=== PATIENT | male | born 1940 | race Caucasian/White ===

== ENCOUNTER 2017-12-09 23:05 | Emergency (ER) | payer OTHER, BC ==
--- NOTE | 2017-12-10 00:04 | EDPHYS ---
Physician Documentation [facility] Name: Garth Sellers Age: 77 yrs Sex: Male : 1940 Arrival Date: 12/09/2017 Time: 23:12 Bed 20 Private MD: ED Physician Reji Oro HPI: 12/09 23:58 This 77 yrs old Male presents to ER via EMS with complaints of Problem With rn Urinary Catheter. 23:58 The patient presents with a Hamilton catheter problem, is leaking urine. Onset: The rn symptoms/episode began/occurred today. Modifying factors: The symptoms are alleviated by nothing, the symptoms are aggravated by nothing. Severity of symptoms: At their worst the symptoms were mild, in the emergency department the symptoms are unchanged. The patient has not experienced similar symptoms in the past. Reports hamilton catheter placed 2 days ago, reports recently diagnosed with kidney cancer, hamilton placed for hematuria, today began leaking around catheter, no other issues. . Historical: - Allergies: 23:29 No Known Allergies; ed1 - Home Meds: 23:29 Zestril oral oral [Active]; Toprol XL 200 mg Oral Tb24 [Active]; Glucophage 500 mg Oral ed1 tab [Active]; Zoloft 100 mg Oral tab [Active]; Lasix 40 mg Oral tab [Active]; Crestor 20 mg oral tab [Active]; Coumadin Oral [Active]; tamsulosin 0.4 mg oral cp24 [Active]; finasteride 5 mg oral tab [Active]; nortriptyline 25 mg Oral cap [Active]; Seroquel 100 mg Oral tab [Active]; Novolin N Sub-Q [Active]; Novolin R Sub-Q [Active]; - PMHx: 23:29 Cancer; CHF; CVA; Diabetes - NIDDM; High Cholesterol; Hypertension; CAD; Prostate ed1 enlargement; - Immunization history:: Adult Immunizations up to date. - Social history:: Smoking status: Patient/guardian denies using tobacco, the patient reports quitting approximately 1 years ago. - Family history:: not pertinent. - Hospitalizations: : No recent hospitalization is reported. ROS: 23:58 Constitutional: Negative for fever, chills, and weight loss, Eyes: Negative for injury, rn pain, redness, and discharge, Neck: Negative for injury, pain, and swelling, Cardiovascular: Negative for chest pain, palpitations, and edema, Respiratory: Negative for shortness of breath, cough, wheezing, and pleuritic chest pain, Abdomen/GI: Negative for abdominal pain, nausea, vomiting, diarrhea, and constipation, Back: Negative for injury and pain, : + leaking catheter MS/Extremity: Negative for injury and deformity, Skin: Negative for injury, rash, and discoloration, Neuro: Negative for headache, weakness, numbness, tingling, and seizure. Exam: 23:58 Constitutional: This is a well developed, well nourished patient who is awake, alert, rn and in no acute distress. Abdomen/GI: Soft, non-tender, with normal bowel sounds. No distension or tympany. No guarding or rebound. No evidence of tenderness throughout. Male : Normal genitalia, + hamilton catheter in place, mild leakage at meatus around hamilton Vital Signs: 23:14 BP 147 / 74; Pulse 89; Resp 18; Temp 98.7; Pulse Ox 97% ; Weight 136.08 kg; Height 5 ea ft. 11 in. (180.34 cm); 12/10 00:22 BP 135 / 53; Pulse 79; Resp 18; Temp 98.7; Pulse Ox 96% on R/A; Pain 0/10; ak1 12/09 23:14 Body Mass Index 41.84 (136.08 kg, 180.34 cm) ea MDM: 12/09 23:13 Patient medically screened. rn 23:58 Differential diagnosis: Hamilton catheter problem. Data reviewed: vital signs, nurses rn notes, and as a result, I will discharge patient. Counseling: I had a detailed discussion with the patient and/or guardian regarding: the historical points, exam findings, and any diagnostic results supporting the discharge/admit diagnosis, the need for outpatient follow up, to return to the emergency department if symptoms worsen or persist or if there are any questions or concerns that arise at home. Special discussion: I discussed with the patient/guardian in detail that at this point there is no indication for admission to the hospital. It is understood, however, that if the symptoms persist or worsen the patient needs to return immediately for re-evaluation. ED course: Hamilton irrigated/flushed, now draining well, no hematuria, pink-tinged, has urology appt tomorrow.. ED course: Already on bactrim for urine coverage.. 12/09 23:19 Order name: Hamilton-Hematuria; Complete Time: 23:51 rn Administered Medications: No medications were administered Disposition: 12/10/17 00:03 Discharged to Home. Impression: Hamilton catheter obstruction. - Condition is Stable. - Discharge Instructions: Hamilton Catheter Care, Adult. - Medication Reconciliation Form, Thank You Letter, Antibiotic Education, Prescription Opioid Use form. - Follow up: Private Physician; When: As needed; Reason: Recheck today's complaints, Re-evaluation by your physician. - Problem is new. - Symptoms have improved. Signatures: Reji Oro MD MD rn Riggs, Erika, LVN CASHIER CREDIT ed1 Corrections: (The following items were deleted from the chart) 12/10 00:31 00:03 12/10/2017 00:03 Discharged to Home. Impression: [place] catheter obstruction. ed1 Condition is Stable. Forms are Medication Reconciliation Form, Thank You Letter, Antibiotic Education, Prescription Opioid Use. Follow up: Private Physician; When: As needed; Reason: Recheck today's complaints, Re-evaluation by your physician. Problem is new. Symptoms have improved. rn
--- NOTE | 2017-12-10 00:04 | ER ---
Nurse's Notes [facility] Name: Garth Sellers Age: 77 yrs Sex: Male : 1940 Arrival Date: 12/09/2017 Time: 23:12 Bed 20 Private MD: Diagnosis: Hamilton catheter obstruction Presentation: 12/09 23:21 Presenting complaint: EMS states: His catheter is leaking. The bag was replaced but it ed1 continues to leak. Transition of care: patient was not received from another setting of care. Onset of symptoms was December 09, 2017. Initial Sepsis Screen: Does the patient meet any 2 criteria? No. Patient's initial sepsis screen is negative. Does the patient have a suspected source of infection? No. Patient's initial sepsis screen is negative. Care prior to arrival: None. 23:21 Method Of Arrival: EMS: [facility] ed1 23:21 Acuity: KEVEN 4 aa1 Triage Assessment: 23:29 General: Appears in no apparent distress. Behavior is calm, cooperative. Pain: Denies ed1 pain. Historical: - Allergies: 23:29 No Known Allergies; ed1 - Home Meds: 23:29 Zestril oral oral [Active]; Toprol XL 200 mg Oral Tb24 [Active]; Glucophage 500 mg Oral ed1 tab [Active]; Zoloft 100 mg Oral tab [Active]; Lasix 40 mg Oral tab [Active]; Crestor 20 mg oral tab [Active]; Coumadin Oral [Active]; tamsulosin 0.4 mg oral cp24 [Active]; finasteride 5 mg oral tab [Active]; nortriptyline 25 mg Oral cap [Active]; Seroquel 100 mg Oral tab [Active]; Novolin N Sub-Q [Active]; Novolin R Sub-Q [Active]; - PMHx: 23:29 Cancer; CHF; CVA; Diabetes - NIDDM; High Cholesterol; Hypertension; CAD; Prostate ed1 enlargement; - Immunization history:: Adult Immunizations up to date. - Social history:: Smoking status: Patient/guardian denies using tobacco, the patient reports quitting approximately 1 years ago. - Family history:: not pertinent. - Hospitalizations: : No recent hospitalization is reported. Screenin/10 00:22 Abuse screen: Denies threats or abuse. Denies injuries from another. Nutritional ak1 screening: No deficits noted. Tuberculosis screening: No symptoms or risk factors identified. Fall Risk Gait- Weak (10 pts.). Assessment: 00:21 Reassessment: Patient appears in no apparent distress at this time. No changes from ak1 previously documented assessment. Patient is alert, oriented x 3, equal unlabored respirations, skin warm/dry/pink. hamilton catheter is draining. Vital Signs: 12/09 23:14 BP 147 / 74; Pulse 89; Resp 18; Temp 98.7; Pulse Ox 97% ; Weight 136.08 kg; Height 5 ea ft. 11 in. (180.34 cm); 12/10 00:22 BP 135 / 53; Pulse 79; Resp 18; Temp 98.7; Pulse Ox 96% on R/A; Pain 0/10; ak1 12/09 23:14 Body Mass Index 41.84 (136.08 kg, 180.34 cm) ea ED Course: 12/09 23:12 Patient arrived in ED. em1 23:13 Reji Oro MD is Attending Physician. rn 23:20 Stefani Baker LVN is Primary Nurse. ed1 23:29 Arm band placed on right wrist. ed1 23:41 Triage completed. aa1 23:43 Bladder irrigated via Hamilton with 50 ml normal saline returned pink tinged urine Patient ed1 tolerated well. 05 00:22 Patient has correct armband on for positive identification. Bed in low position. Call ak1 light in reach. Side rails up X 1. 00:23 No provider procedures requiring assistance completed. Patient did not have IV access ak1 during this emergency room visit. 00:40 Primary Nurse role handed off by Stefani Baker LVN ed1 Administered Medications: No medications were administered Outcome: 00:03 Discharge ordered by . rn 00:23 Discharged to home via wheelchair, with family. ak1 00:23 Condition: stable 00:23 Discharge instructions given to patient, family, Instructed on discharge instructions, follow up and referral plans. Demonstrated understanding of instructions, follow-up care. 00:31 Patient left the ED. ed1 Signatures: Caprice Lares RN RN aa1 Reji Oro MD MD rn Martinez, Eric em1 Stefani Baker LVN LVN ed1 Krenek, Thelma, RN RN ak1 Xie, Felisa, RN RN ea
[2017-12-10 00:37] VITALS: TEMP 98.7
[2017-12-10 00:38] VITALS: BP 135/53; O2SAT 96
== END 2017-12-10 00:31 | disposition home or self-care (01) ==
LOC: ER 23:05
DX: T83.091A Other mechanical complication of indwelling urethral catheter, initial encounter (principal); E11.9 Type 2 diabetes mellitus without complications; E78.5 Hyperlipidemia, unspecified; I10 Essential (primary) hypertension; I50.9 Heart failure, unspecified; Z46.6 Encounter for fitting and adjustment of urinary device
CPT/HCPCS: 51700; 99284

== ENCOUNTER 2018-03-24 11:19 | Observation (INO) | payer OTHER, BC ==
[2018-03-24] MEDS ORDERED: ALBUTEROL 2.5 MG/3 ML NEB SOL IH PRN (12:37)
[2018-03-24 12:51] VITALS: BMI 40.9
[2018-03-24] MEDS ORDERED: ONDANSETRON 4 MG/2 ML VIAL IV PRN (13:00)
[2018-03-24] MEDS ORDERED: NACHLORIDE 0.45% 1,000 ML IV SCH (13:00)
[2018-03-24] MEDS ORDERED: POLYETHYL GLY 3350 17 GM/DOSE PO PRN (13:00)
[2018-03-24] MEDS ORDERED: NA CHLORIDE 0.9% 250 ML IV SCH (13:00)
[2018-03-24] MEDS ORDERED: ONDANSETRON 4 MG (ODT) TAB PO PRN (13:00)
[2018-03-24] MEDS ORDERED: DIPHENHYDRAMINE 25 MG TAB/CAP PO PRN (13:00)
[2018-03-24] MEDS ORDERED: LOPERAMIDE HCL 2 MG CAPSULE PO PRN (13:00)
[2018-03-24 13:08] LABS: Absolute Lymphocytes (CBC) 1.1 K/uL (0.7-4.9); Absolute Monocytes 0.6 K/uL (0.1-1.3); Absolute Neutrophil 7.5 K/uL (1.8-8.0); Basophils % 0.4 % (0-1.3); Eosinophils % 0.9 % (0-4.4); Hematocrit 25.6 % (39.6-49.0); Lymphocytes % 11.5 % (15.3-44.8); MCH 23.2 pg (27.0-35.0); MCV 74.9 fL (80-100); MPV 10.8 fL (7.6-11.3); Monocytes % 6.2 % (3.3-12.3); RBC Red Blood Cell Count 3.42 M/uL (4.33-5.43)
--- NOTE | 2018-03-24 13:31 | RAD REPORT ---
EXAM DESCRIPTION: Karina Single View03/24/2018 1:22 pm CLINICAL HISTORY: Anemia/pulmonary nodule COMPARISON: January 2018 CT FINDINGS: A small calcified left lung granuloma is present. An additional sub centimeter left lung n odule seen on the CT chest is not clearly visualized but could be missed on chest x-ray secondary to the small size. The remainder of the lungs appear clear of acute infiltrate. The heart is borderline enlarged
[2018-03-24] MEDS: IPRATROPIUM BROM 0.5MG/2.5ML IH SCH ×2 (14:03→19:57)
[2018-03-24] MEDS: LEVALBUTEROL 1.25 MG/3 ML NEB IH SCH ×2 (14:03→19:57)
[2018-03-24] MEDS ORDERED: GLUCAGON 1 MG/VIAL IM PRN (15:42)
[2018-03-24] MEDS ORDERED: D50W 25 GM/50 ML SYRINGE IV PRN (15:42)
[2018-03-24 15:45] LABS: Urine Appearance CLEAR; Urine Bilirubin NEGATIVE (NEG); Urine Blood 3+ (NEG); Urine Color YELLOW; Urine Glucose NEGATIVE (NEG); Urine Protein 1+ (NEG); Urine Specific Gravity 1.015 (1.005-1.030)
[2018-03-24 15:50] LABS: Urine Microscopic Reflex ORDER UMIC
[2018-03-24 16:15] LABS: Urine Bacteria <20 /HPF (NONE SEEN); Urine RBC 20-50 /HPF (NONE SEEN)
[2018-03-24 16:16] LABS: Urine Culture Reflex Order NOT NEEDED
[2018-03-24] MEDS: INSULIN -REGULAR HUMAN 50 UNIT/0.5 ML ML SQ SCH ×2 (17:22→20:43)
[2018-03-24] MEDS: METFORMIN HCL 500 MG TAB PO SCH (19:02)
[2018-03-24] MEDS ORDERED: QUETIAPINE 25 MG TAB PO SCH (21:00)
[2018-03-24] MEDS ORDERED: QUETIAPINE FUMARATE PO SCH (21:00)
[2018-03-24] MEDS ORDERED: FINASTERIDE 5 MG TAB PO SCH (21:00)
[2018-03-24] MEDS: ACETAMINOPHEN 325 MG TABLET PO PRN (23:13)
[2018-03-25] MEDS: IPRATROPIUM BROM 0.5MG/2.5ML IH SCH ×3 (01:59→13:22)
[2018-03-25] MEDS: LEVALBUTEROL 1.25 MG/3 ML NEB IH SCH ×3 (01:59→13:22)
[2018-03-25 04:16] LABS: Absolute Lymphocytes (CBC) 1.3 K/uL (0.7-4.9); Absolute Monocytes 0.6 K/uL (0.1-1.3); Absolute Neutrophil 5.5 K/uL (1.8-8.0); Basophils % 0.4 % (0-1.3); Eosinophils % 1.3 % (0-4.4); Hematocrit 27.8 % (39.6-49.0); Lymphocytes % 17.7 % (15.3-44.8); MCH 24.4 pg (27.0-35.0); MCV 76.7 fL (80-100); MPV 10.8 fL (7.6-11.3); Monocytes % 8.4 % (3.3-12.3); RBC Red Blood Cell Count 3.62 M/uL (4.33-5.43)
[2018-03-25 04:19] LABS: Protime INR 2.32
[2018-03-25 04:26] LABS: Magnesium 2.1 mg/dL (1.8-2.4); Potassium 3.5 mmol/L (3.5-5.1)
[2018-03-25 04:32] VITALS: TEMP 97.3
[2018-03-25 08:28] VITALS: BP 112/58
[2018-03-25 08:30] VITALS: O2SAT 95
[2018-03-25] MEDS: INSULIN -REGULAR HUMAN 50 UNIT/0.5 ML ML SQ SCH ×3 (08:49→17:15)
[2018-03-25] MEDS: INSULIN 70/30 100 UNITS/ML SQ SCH ×2 (08:49→17:15)
[2018-03-25] MEDS: METFORMIN HCL 500 MG TAB PO SCH ×2 (08:52→17:17)
[2018-03-25] MEDS: ACETAMINOPHEN 325 MG TABLET PO PRN (08:56)
[2018-03-25] MEDS ORDERED: LISINOPRIL 20 MG TAB PO SCH (09:00)
[2018-03-25] MEDS ORDERED: HOME MED 1 EA UNK (Lisinopril [Zestril] 40 MG) PO SCH (09:00)
[2018-03-25] MEDS ORDERED: FUROSEMIDE 40 MG TABLET PO SCH (09:00)
[2018-03-25] MEDS ORDERED: SERTRALINE HCL 100 MG TAB PO SCH (09:00)
[2018-03-25] MEDS ORDERED: NA CHLORIDE 0.9% 250 ML IV SCH (09:00)
--- NOTE | 2018-03-25 09:32 | EKG ---
Test Date: 2018-03-24 Test Time: 14:12:48 Sand Operator: DEBRA MEASUREMENT RESULTS: Intervals: Rate: 98 [place]: 148 QRSD: 92 QT: 378 QTc: 482 Sherman: P: 63 [place]: 148 QRS: 56 T: 188 INTERPRETIVE STATEMENTS: Normal sinus rhythm NST Prolonged QT Abnormal ECG Compared to ECG 01/05/2007 05:32:01 ST (T wave) deviation now present Prolonged QT interval now present Myocardial infarct finding no longer present Electronically Signed On 03-25-18 09:32:15 CDT by Vikas Moore
--- NOTE | 2018-03-25 12:45 | P.DS ---
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 DR DOBBS WANTS CHEMO FOR HIM. HE AT 78 WITH POOR CONDITION MAY NOT DO WELL. WITH HIS HEMATURIA HE HAS ANEMIA AND SO I HAD TO PUT HIM IN HOSPITAL FOR 3 UNITS OF PACKED RBCS. HE WILL GO HOME AFTER [address] RD UNIT. Vital Signs/Physical Exam: Temp Pulse Resp BP Pulse Ox 97.3 F 95 H 17 112/58 L 100 03/25/18 08:00 03/25/18 08:52 03/25/18 08:00 03/25/18 08:52 03/25/18 08:00 Laboratory Data at Discharge: WBC 7.6 K/uL (4.3-10.9) D 03/25/18 03:43 Hgb 8.8 g/dL (13.6-17.9) L 03/25/18 03:43 Hct 27.8 % (39.6-49.0) L 03/25/18 03:43 Plt Count 149 K/uL (152-406) L D 03/25/18 03:43 PT 27.6 SECONDS (9.5-12.5) H 03/25/18 03:43 INR 2.32 03/25/18 03:43 Sodium 138 mmol/L (136-145) 03/25/18 03:43 Potassium 3.5 mmol/L (3.5-5.1) 03/25/18 03:43 BUN 21 mg/dL (7-18) H 03/25/18 03:43 Creatinine 1.20 mg/dL (0.55-1.3) 03/25/18 03:43 Glucose 227 mg/dL (74-106) H 03/25/18 03:43 Magnesium 2.1 mg/dL (1.8-2.4) 03/25/18 03:43 Home Medications: Furosemide [Lasix*] 40 mg PO DAILY 11/10/14 Lisinopril [Zestril] 40 mg PO DAILY 11/10/14 Quetiapine Fumarate [Seroquel] 1 tab PO BEDTIME 11/10/14 Rosuvastatin [Crestor*] 10 mg PO DAILY AT SUPPER 11/10/14 Sertraline [Zoloft*] 1 tab PO DAILY 11/10/14 Warfarin Sodium [Coumadin*] 6 mg PO DAILY 5 PM 11/10/14 Finasteride 5 mg PO BEDTIME 03/24/18 Insulin 70/30 NPH/Reg Human [Novolin 70/30*] 40 units SQ BIDWM 03/24/18 Metformin HCl [Glucophage] 500 mg PO BIDWM 03/24/18 Tamsulosin [Flomax*] 0.4 mg PO DAILY AFTER SUPPER 03/24/18 Patient Discharge Instructions: STOP WARFARIN IF BLEEDING CONTINUES FOR NOW. Diet: Regular Followup: Yeyo Cardoso MD [Primary Care Provider] - (call to schedule appointment)
[2018-03-25 16:52] LABS: Absolute Lymphocytes (CBC) 0.9 K/uL (0.7-4.9); Absolute Monocytes 0.6 K/uL (0.1-1.3); Absolute Neutrophil 6.3 K/uL (1.8-8.0); Basophils % 0.6 % (0-1.3); Eosinophils % 0.9 % (0-4.4); Hematocrit 31.3 % (39.6-49.0); Lymphocytes % 11.8 % (15.3-44.8); MCH 24.8 pg (27.0-35.0); MCV 78.5 fL (80-100); Monocytes % 8.1 % (3.3-12.3); RBC Red Blood Cell Count 3.99 M/uL (4.33-5.43)
[2018-03-25] MEDS ORDERED: ROSUVASTATIN 10 MG TAB PO SCH ×2 (17:00→18:00)
[2018-03-25] MEDS ORDERED: TAMSULOSIN 0.4 MG SR CAP PO SCH (18:00)
== END 2018-03-25 18:00 | disposition home or self-care (01) ==
LOC: 4TH 11:57
PROVIDERS: ADMIT Internal Medicine; ATTEND Internal Medicine
PROC: 30233N1 Transfusion of Nonautologous Red Blood Cells into Peripheral Vein, Percutaneous Approach (ICD-10-PCS; principal; 2018-03-24)
DX: D64.9 Anemia, unspecified (principal); R31.9 Hematuria, unspecified; C64.9 Malignant neoplasm of unspecified kidney, except renal pelvis
CPT/HCPCS: 36415 ×2; 36430; 71045; 80048 ×2; 82962 ×6; 83735; 85025 ×3; 85610; 86850; 86900; 86901; 93005; 94640; P9016 ×3; 81003; 81015

== ENCOUNTER 2018-04-10 08:39 | Observation (INO) | payer OTHER, BC ==
[2018-04-10 09:11] LABS: Absolute Monocytes 0.1 K/uL (0.1-1.3); Absolute Neutrophil 13.8 K/uL (1.8-8.0); Basophils % 0.2 % (0-1.3); Hematocrit 41.9 % (39.6-49.0); Lymphocytes % 6.6 % (15.3-44.8); MCH 25.7 pg (27.0-35.0); MCV 80.4 fL (80-100); MPV 10.9 fL (7.6-11.3); Monocytes % 0.3 % (3.3-12.3); RBC Red Blood Cell Count 5.21 M/uL (4.33-5.43)
[2018-04-10 09:21] LABS: Protime INR 5.05
[2018-04-10 09:28] LABS: Albumin 3.3 g/dL (3.4-5.0); Bilirubin Direct 0.2 mg/dL (0-0.2); Bilirubin Total 0.5 mg/dL (0.2-1.0); Potassium 4.7 mmol/L (3.5-5.1); Protein, Total 7.5 g/dL (6.4-8.2); Troponin (Emerg Dept Use Only) 0.02 ng/mL (0.0-0.045)
[2018-04-10 09:32] LABS: Anisocytosis 3+; Blood Morphology Comment NOTED (NOT SEEN); Hypochromasia 1+; Macrocytosis 2+; Platelet Estimate ADEQ; Urine White Blood Cell Casts OK
[2018-04-10] MEDS ORDERED: ACETAMINOPHEN 500 MG TAB PO PRN (10:46)
[2018-04-10] MEDS ORDERED: ONDANSETRON 4 MG/2 ML VIAL IV PRN (10:46)
[2018-04-10] MEDS ORDERED: ALBUTEROL 2.5 MG/3 ML NEB SOL NEB PRN (10:46)
[2018-04-10] MEDS ORDERED: IPRATROPIUM BROM 0.5MG/2.5ML NEB PRN (10:46)
--- NOTE | 2018-04-10 10:46 | ER ---
Nurse's Notes [facility] Name: Garth Sellers Age: 78 yrs Sex: Male : 1940 Arrival Date: 04/10/2018 Time: 08:42 Bed 7 Private MD: Diagnosis: Unspecified combined systolic (congestive) and diastolic (congestive) heart failure;Acute pulmonary edema;Dyspnea, unspecified Presentation: 04/10 08:42 Presenting complaint: EMS states: Pt c/o SOB increasing since Thu, 93% on RA improved ph to 100% on NRB, also c/o abdominal distention, hx of kidney cancer, receives chemo on and Thu. Transition of care: patient was not received from another setting of care. Onset of symptoms was April 10, 2018. Risk Assessment: Do you want to hurt yourself or someone else? Patient reports no desire to harm self or others. Initial Sepsis Screen: Does the patient meet any 2 criteria? No. Patient's initial sepsis screen is negative. Does the patient have a suspected source of infection? No. Patient's initial sepsis screen is negative. Care prior to arrival: IV initiated. 20 GA, in the right antecubital area, Glucose check: 154 Oxygen administered. via a non-rebreather mask. 08:42 Method Of Arrival: EMS: [facility] ph 08:42 Acuity: KEVEN 3 ph Historical: - Allergies: 08:53 No Known Allergies; ph - Home Meds: 08:53 Coumadin Oral [Active]; Crestor 20 mg Oral tab [Active]; finasteride 5 mg Oral tab ph [Active]; Glucophage 500 mg Oral tab [Active]; Lasix 40 mg Oral tab [Active]; nortriptyline 25 mg Oral cap [Active]; Novolin N Sub-Q [Active]; Novolin R Sub-Q [Active]; Seroquel 100 mg Oral tab [Active]; tamsulosin 0.4 mg Oral cp24 [Active]; Toprol XL 200 mg Oral Tb24 [Active]; Zestril 40 mg oral tab [Active]; Zoloft 100 mg Oral tab [Active]; - PMHx: 08:53 CAD; Cancer; Kidney; CHF; CVA; High Cholesterol; Hypertension; Prostate enlargement; ph Diabetes - IDDM; - Immunization history:: Adult Immunizations unknown. - Family history:: not pertinent. - Ebola Screening: : No symptoms or risks identified at this time. - Social history:: Smoking status: Patient/guardian denies using tobacco. - Hospitalizations: : No recent hospitalization is reported. Screenin:57 Abuse screen: Denies threats or abuse. Denies injuries from another. Nutritional hb screening: No deficits noted. Tuberculosis screening: No symptoms or risk factors identified. Fall Risk Total Hilton Fall Scale indicates Low Risk Score (25-44 pts). Fall prevention measures have been instituted. Frequent Obs/Assesments occuring Family Present and informed to notify staff if they need to leave bedside As available Patient and Family Educated on Fall Prevention Program and strategies. Assessment: 08:58 General: Appears distressed, Behavior is calm, cooperative. hb 09:00 Pain: Denies pain. Neuro: Level of Consciousness is awake, alert, obeys commands, hb Oriented to person, place, time, situation, Pupils are PERRLA. Cardiovascular: Heart tones S1 S2 present Capillary refill < 3 seconds Patient's skin is warm and dry. Rhythm is regular. Respiratory: Airway is patent Trachea midline Respiratory effort is labored, Respiratory pattern is tachypnea Breath sounds with crackles bilaterally. Breath sounds are diminished bilaterally. GI: Abdomen is distended. : No signs and/or symptoms were reported regarding the genitourinary system. EENT: No signs and/or symptoms were reported regarding the EENT system. Derm: Skin is intact, is healthy with good turgor, Skin is dry, Skin is pale, Skin temperature is warm. Musculoskeletal: Swelling +1 pitting BLE edema. 10:00 Reassessment: Patient appears in no apparent distress at this time. Patient and/or hb family updated on plan of care and expected duration. Pain level reassessed. Patient is alert, oriented x 3, equal unlabored respirations, skin warm/dry/pink. 11:00 Reassessment: Patient appears in no apparent distress at this time. No changes from hb previously documented assessment. Patient and/or family updated on plan of care and expected duration. Pain level reassessed. Patient is alert, oriented x 3, equal unlabored respirations, skin warm/dry/pink. Vital Signs: 08:46 BP 159 / 96; Pulse 99; Resp 22; Temp 97.7(TE); Pulse Ox 93% on R/A; ph 10:15 BP 152 / 88; Pulse 90; Resp 24; Pulse Ox 99% on R/A; hb 11:15 BP 149 / 79; Pulse 88; Resp 22; Pulse Ox 97% on R/A; hb ED Course: 08:42 Patient arrived in ED. ph 08:42 Reji Oro MD is Attending Physician. rn 08:45 Maintain EMS IV. Dressing intact. Good blood return noted. Site clean \T\ dry. Gauge \T\ hb site: 20g RIGHT AC. 08:46 Triage completed. ph 08:47 Arm band placed on. ph 09:03 Patient has correct armband on for positive identification. Placed in gown. Bed in low hb position. Call light in reach. Side rails up X 1. 10:25 XRAY Chest Pa And Lat (2 Views) In Process Unspecified. EDMS 10:42 Yeyo Cardoso MD is Hospitalizing Provider. rn 11:16 Emili Tyler, RN is Primary Nurse. ph 11:46 No provider procedures requiring assistance completed. Patient admitted, IV remains in hb place. Administered Medications: 11:17 Drug: Lasix 40 mg Route: IVP; Site: right antecubital; hb 11:30 Follow up: Response: No adverse reaction ph Outcome: 10:45 Decision to Hospitalize by Provider. rn 11:46 Admitted to Tele accompanied by tech, family with patient, via stretcher, room 427, hb with chart, Report called to ANDRIY Shearer 11:46 Condition: stable 11:46 Instructed on the need for admit, Demonstrated understanding of instructions. 11:47 Patient left the ED. hb Signatures: Dispatcher [employer] EDMS Reji Oro MD MD rn Hall, Patricia, RN RN Sofi Dodd RN RN hb Corrections: (The following items were deleted from the chart) 09:03 08:58 General: Appears hb hb
--- NOTE | 2018-04-10 10:46 | EDPHYS ---
Physician Documentation [facility] Name: Garth Sellers Age: 78 yrs Sex: Male : 1940 Arrival Date: 04/10/2018 Time: 08:42 Bed 7 Private MD: ED Physician Reji Oro HPI: 04/10 08:48 This 78 yrs old Male presents to ER via EMS with complaints of Breathing rn Difficulty. 08:48 The patient has shortness of breath at rest. rn 08:49 Onset: The symptoms/episode began/occurred 3 day(s) ago. Duration: The symptoms are rn continuous. The patient's shortness of breath is aggravated by exertion, light activity, talking, walking. Associated signs and symptoms: Pertinent positives: non-productive cough, Pertinent negatives: fever, hemoptysis, loss of consciousness, vomiting. Severity of symptoms: At their worst the symptoms were moderate in the emergency department the symptoms are unchanged. The patient has experienced similar episodes in the past. Reports increased sob for 3-4 days, had chemo this week, for kidney cancer, unsure if metastatic, no fever, oxygen 92% on RA per EMS, not on home O2, + mild abd distension, no bloody or dark stool. + swelling.. Historical: - Allergies: 08:53 No Known Allergies; ph - Home Meds: 08:53 Coumadin Oral [Active]; Crestor 20 mg Oral tab [Active]; finasteride 5 mg Oral tab ph [Active]; Glucophage 500 mg Oral tab [Active]; Lasix 40 mg Oral tab [Active]; nortriptyline 25 mg Oral cap [Active]; Novolin N Sub-Q [Active]; Novolin R Sub-Q [Active]; Seroquel 100 mg Oral tab [Active]; tamsulosin 0.4 mg Oral cp24 [Active]; Toprol XL 200 mg Oral Tb24 [Active]; Zestril 40 mg oral tab [Active]; Zoloft 100 mg Oral tab [Active]; - PMHx: 08:53 CAD; Cancer; Kidney; CHF; CVA; High Cholesterol; Hypertension; Prostate enlargement; ph Diabetes - IDDM; - Immunization history:: Adult Immunizations unknown. - Family history:: not pertinent. - Ebola Screening: : No symptoms or risks identified at this time. - Social history:: Smoking status: Patient/guardian denies using tobacco. - Hospitalizations: : No recent hospitalization is reported. ROS: 08:49 Constitutional: Negative for fever, chills, and weight loss, Eyes: Negative for injury, rn pain, redness, and discharge, Cardiovascular: Negative for chest pain, palpitations, and edema, Respiratory: Negative for wheezing, and pleuritic chest pain Abdomen/GI: Negative for vomiting, diarrhea, + constipation, MS/Extremity: Negative for injury and deformity, Skin: Negative for injury, rash, and discoloration, Neuro: Negative for headache,numbness, tingling, and seizure. Exam: 08:49 Constitutional: Overweight male, + mild tachypnea, weak almost falling when rn transferring to stretcher, unable to support his own weight. Head/Face: Normocephalic, atraumatic. Eyes: Pupils equal round and reactive to light, extra-ocular motions intact. Lids and lashes normal. Conjunctiva and sclera are non-icteric and not injected. Cornea within normal limits. Periorbital areas with no swelling, redness, or edema. ENT: dry MM Neck: Trachea midline Cardiovascular: Regular rate and rhythm with a normal S1 and S2. No gallops, murmurs, or rubs. Normal PMI, no JVD. No pulse deficits. Respiratory: + mild tachypnea with diminished breath sounds at bases Abdomen/GI: soft, non-tender MS/ Extremity: Pulses equal, no cyanosis. Neurovascular intact. Full, normal range of motion. Equal circumference. 1+ pitting bilateral pedal edema Neuro: Awake and alert, GCS 15, oriented to person, place, time, and situation. Cranial nerves II-XII grossly intact. Motor strength 4/5 in all extremities. Sensory grossly intact. Vital Signs: 08:46 BP 159 / 96; Pulse 99; Resp 22; Temp 97.7(TE); Pulse Ox 93% on R/A; ph 10:15 BP 152 / 88; Pulse 90; Resp 24; Pulse Ox 99% on R/A; hb 11:15 BP 149 / 79; Pulse 88; Resp 22; Pulse Ox 97% on R/A; hb MDM: 08:42 Patient medically screened. rn 10:41 Differential diagnosis: Anemia CHF exacerbation, Myocardial Infarction pneumonia, rn Pneumothorax pulmonary edema. Data reviewed: vital signs, nurses notes, lab test result(s), EKG, radiologic studies, plain films, and as a result, I will admit patient. Counseling: I had a detailed discussion with the patient and/or guardian regarding: the historical points, exam findings, and any diagnostic results supporting the discharge/admit diagnosis, lab results, radiology results, the need for further work-up and treatment in the hospital. Response to treatment: the patient's symptoms have mildly improved after treatment, and as a result, I will admit patient. Admission orders: after a detailed discussion of the patient's condition and case, the admit orders are written by me. ED course: Admitted to Dr. Cardoso for CHF exacerbation, + bilateral pleural effusions on cxr and BNP 20831, stable.. 04/10 08:44 Order name: Blood Culture Adult (2) rn 04/10 08:44 Order name: BMP; Complete Time: 10:18 rn 04/10 08:44 Order name: CBC with Diff; Complete Time: 10:18 rn 04/10 08:44 Order name: Hepatic Function; Complete Time: 10:18 rn 04/10 08:44 Order name: Lipase; Complete Time: 10:18 rn 04/10 08:44 Order name: NT PRO-BNP; Complete Time: 10:18 rn 04/10 08:44 Order name: PT-INR; Complete Time: 10:18 rn 04/10 08:44 Order name: Troponin (emerg Dept Use Only); Complete Time: 10:18 rn 04/10 09:15 Order name: CBC Smear Scan; Complete Time: 10:18 EDMS 04/10 10:49 Order name: Basic Metabolic Panel EDMS 04/10 10:49 Order name: Basic Metabolic Panel EDMS 04/10 10:49 Order name: CBC with Automated Diff EDMS 04/10 10:49 Order name: CBC with Automated Diff EDMS 04/10 10:49 Order name: NT PRO-BNP EDMS 04/10 08:44 Order name: XRAY Chest Pa And Lat (2 Views); Complete Time: 11:05 rn 04/10 08:44 Order name: EKG; Complete Time: 08:45 rn 04/10 08:44 Order name: Cardiac monitoring; Complete Time: 08:45 rn 04/10 08:44 Order name: EKG - Nurse/Tech; Complete Time: 09:04 rn 04/10 08:44 Order name: IV Saline Lock; Complete Time: 08:57 rn 04/10 08:44 Order name: Labs collected and sent; Complete Time: 08:57 rn 04/10 08:44 Order name: O2 Per Protocol; Complete Time: 08:45 rn 04/10 08:44 Order name: O2 Sat Monitoring; Complete Time: 08:57 rn 04/10 10:49 Order name: Low Sodium EDMS 04/10 10:49 Order name: NT PRO-BNP EDMS Administered Medications: 11:17 Drug: Lasix 40 mg Route: IVP; Site: right antecubital; hb 11:30 Follow up: Response: No adverse reaction ph Disposition: 04/10/18 10:45 Hospitalization ordered by Yeyo Cardoso for Inpatient Admission. Preliminary diagnosis are Unspecified combined systolic (congestive) and diastolic (congestive) heart failure, Acute pulmonary edema, Dyspnea, unspecified. - Bed requested for Telemetry/MedSurg (Inpatient). - Status is Inpatient Admission. hb - Condition is Stable. - Problem is new. - Symptoms have improved. UTI on Admission? No Signatures: Dispatcher [employer] EDMS Reji Oro MD MD rn Hall, Patricia, RN RN Sofi Dodd RN RN Alicia White Corrections: (The following items were deleted from the chart) 11:16 10:45 Hospitalization Ordered by Yeyo Cardoso MD for Inpatient Admission. Preliminary eb diagnosis is Unspecified combined systolic (congestive) and diastolic (congestive) heart failure; Acute pulmonary edema; Dyspnea, unspecified. Bed requested for Telemetry/MedSurg (Inpatient). Status is Inpatient Admission. Condition is Stable. Problem is new. Symptoms have improved. UTI on Admission? No. rn 11:47 11:16 04/10/2018 10:45 Hospitalization Ordered by Yeyo Cardoso MD for Inpatient hb Admission. Preliminary diagnosis is Unspecified combined systolic (congestive) and diastolic (congestive) heart failure; Acute pulmonary edema; Dyspnea, unspecified. Bed requested for Telemetry/MedSurg (Inpatient). Status is Inpatient Admission. Condition is Stable. Problem is new. Symptoms have improved. UTI on Admission? No. eb
--- NOTE | 2018-04-10 11:04 | RAD REPORT ---
EXAM DESCRIPTION: RAD - Chest Pa And Lat (2 Views) - 04/10/2018 10:25 am CLINICAL HISTORY: Cough;Dyspnea Chest pain. COMPARISON: Chest Single View dated 03/24/2018; Chest Abdomen Pelvis W Cont dated 02/26/2018 FINDINGS: Bilateral pulmonary opacities are present likely representing pulmonary edema. Bilateral p leural effusions are seen, moderate in size. The heart is mildly to moderately enlarged. IMPRESSION: Mild to moderate CHF versus volume overload pattern.
[2018-04-10] MEDS ORDERED: FUROSEMIDE 40 MG/4 ML VIAL ONE (11:25)
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
[2018-04-10 13:08] LABS: Protime INR 4.94
[2018-04-10 15:48] VITALS: BMI 39.7
[2018-04-10] MEDS ORDERED: ROSUVASTATIN 10 MG TAB PO SCH (17:00)
[2018-04-10] MEDS: FUROSEMIDE 20 MG/ 2ML VIAL IV SCH (17:06)
[2018-04-10] MEDS ORDERED: TAMSULOSIN 0.4 MG SR CAP PO SCH (17:30)
[2018-04-10] MEDS ORDERED: NORTRIPTYLINE HCL 25 MG CAP PO SCH (21:00)
[2018-04-10] MEDS ORDERED: FINASTERIDE 5 MG TAB PO SCH (21:00)
[2018-04-10] MEDS ORDERED: QUETIAPINE 25 MG TAB PO SCH (21:00)
[2018-04-11 06:03] LABS: Potassium 4.4 mmol/L (3.5-5.1)
[2018-04-11 06:21] LABS: Absolute Lymphocytes (CBC) 0.9 K/uL (0.7-4.9); Absolute Neutrophil 4.9 K/uL (1.8-8.0); Basophils % 0.1 % (0-1.3); Eosinophils % 0.7 % (0-4.4); Hematocrit 38.4 % (39.6-49.0); Lymphocytes % 14.9 % (15.3-44.8); MCH 25.7 pg (27.0-35.0); MCV 79.9 fL (80-100); MPV 11.1 fL (7.6-11.3); Monocytes % 0.6 % (3.3-12.3)
[2018-04-11] MEDS: FUROSEMIDE 20 MG/ 2ML VIAL IV SCH (08:37)
[2018-04-11 08:47] LABS: Anisocytosis 3+; Blood Morphology Comment NOTED (NOT SEEN); Platelet Estimate DECR; Urine White Blood Cell Casts OK
--- NOTE | 2018-04-11 08:55 | EKG ---
Test Date: 2018-04-10 Test Time: 08:59:43 Telephone Lineworker: MEASUREMENT RESULTS: Intervals: Rate: 80 OK: 154 QRSD: 94 QT: 392 QTc: 452 [place]: P: 43 OK: 154 QRS: 51 T: -90 INTERPRETIVE STATEMENTS: Sinus rhythm with premature atrial complexes with aberrant conduction Possible Anterior infarct, age undetermined Abnormal ECG Compared to ECG 03/24/2018 14:12:48 Atrial premature complex(es) now present Aberrant conduction of supraventricular beat(s) now present Myocardial infarct finding now present Prolonged QT interval no longer present Electronically Signed On 04-11-18 08:52:53 CDT by Vikas Moore
[2018-04-11] MEDS ORDERED: LISINOPRIL 20 MG TAB PO SCH (09:00)
[2018-04-11] MEDS ORDERED: SERTRALINE HCL 100 MG TAB PO SCH (09:00)
[2018-04-11] MEDS ORDERED: METOPROLOL XL 100 MG TAB PO SCH (09:00)
[2018-04-11 09:59] VITALS: O2SAT 93
[2018-04-11] MEDS ORDERED: INSULIN 70/30 100 UNITS/ML SQ SCH (11:00)
[2018-04-11 12:29] VITALS: BP 132/64; TEMP 97.7
[2018-04-11 13:31] LABS: Protime INR 3.01
== END 2018-04-11 15:41 | disposition home or self-care (01) ==
LOC: ER 08:39 → ERHOLD 10:45 → INTOOBSV 10:45 → 4TH 11:34
PROVIDERS: ADMIT Internal Medicine; ATTEND Internal Medicine
DX: I50.9 Heart failure, unspecified (principal); C65.9 Malignant neoplasm of unspecified renal pelvis; E11.9 Type 2 diabetes mellitus without complications; Z79.01 Long term (current) use of anticoagulants; Z79.4 Long term (current) use of insulin; E66.9 Obesity, unspecified; I69.30 Unspecified sequelae of cerebral infarction; I25.10 Atherosclerotic heart disease of native coronary artery without angina pectoris; E78.00 Pure hypercholesterolemia, unspecified; N40.0 Benign prostatic hyperplasia without lower urinary tract symptoms
CPT/HCPCS: 36415; 71046; 80048 ×2; 80076; 82962 ×5; 83690; 83880 ×2; 84484; 85025 ×2; 85610 ×3; 87040 ×2; 93005; 96374; 99285; G0378 ×2; J1940 ×2

== ENCOUNTER 2018-08-09 14:36 | Emergency (ER) | payer OTHER, BC ==
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
--- NOTE | 2018-08-09 15:38 | RAD REPORT ---
EXAM DESCRIPTION: CT - Stone Protocol - 08/09/2018 3:26 pm CLINICAL HISTORY: Flank pain. ABD PAIN COMPARISON: Abdomen Pelvis W/Wo Contrast dated 09/21/2017 TECHNIQUE: Axial images were obtained without oral or IV contrast. Lack of contrast limits solid org an and vascular assessment. The [id number] spans the entirety of the system partially obscuring uppermost abdomen and lung bases. Coronal reformatted images were obtained and reviewed. All CT scans are performed using dose optimization technique as appropriate and may include automated exposure control or mA/KV adjustment according to patient size. FINDINGS: Small bilateral pleural effusions are present. Imaged portions of the liver and spleen show no suspicious findings on non-contrast imaging.Cholelith iasis. The pancreas and adrenal glands are normal. No pathologic lymphadenopathy in the abdomen or pe lvis. Bilateral renal cysts are present. A double-J stent is present on the left with proximal and distal a spects in expected positioning and alignment. No bowel obstruction, free air, free fluid or abscess. Normal appendix noted. No lytic or blastic bone lesion. No acute fracture demonstrated. IMPRESSION: No acute intra-abdominal or pelvic process is seen.
--- NOTE | 2018-08-09 17:29 | RAD REPORT ---
EXAM DESCRIPTION: RAD - Elbow Right 3 View - 08/09/2018 3:41 pm CLINICAL HISTORY: PAIN Trauma COMPARISON: No comparisons FINDINGS: Prominent right-sided olecranon spur is seen. No acute fracture or dislocation is evident.
[2018-08-09 17:31] LABS: Urine Blood 3+ (NEG); Urine Glucose NEGATIVE (NEG); Urine Protein 2+ (NEG); Urine Specific Gravity 1.015 (1.005-1.030)
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
[2018-08-09 17:57] LABS: Urine RBC >50 /HPF (NONE SEEN)
[2018-08-09 17:58] LABS: Urine Bacteria <20 /HPF (NONE SEEN); Urine Culture Reflex Order REFLEXED
[2018-08-09 23:58] VITALS: TEMP 98.4
[2018-08-10 00:43] VITALS: BP 146/74; O2SAT 99
== END 2018-08-09 18:10 | disposition home or self-care (01) ==
LOC: ER 14:36
DX: S50.11XA Contusion of right forearm, initial encounter (principal); R31.9 Hematuria, unspecified; V03.99XA Pedestrian with other conveyance injured in collision with car, pick-up truck or van, unspecified whether traffic or nontraffic accident, initial encounter; M77.9 Enthesopathy, unspecified; I25.10 Atherosclerotic heart disease of native coronary artery without angina pectoris; I11.0 Hypertensive heart disease with heart failure; I50.9 Heart failure, unspecified; E78.00 Pure hypercholesterolemia, unspecified; E11.9 Type 2 diabetes mellitus without complications; N40.0 Benign prostatic hyperplasia without lower urinary tract symptoms; Z79.4 Long term (current) use of insulin; Z79.01 Long term (current) use of anticoagulants; Z79.899 Other long term (current) drug therapy
CPT/HCPCS: 70450; 72125; 74176; 76377; 81003; 81015; 87086; 87088; 99285

== ENCOUNTER 2019-03-03 18:22 | Emergency (ER) | payer OTHER, BC ==
[2019-03-03] MEDS ORDERED: LIDOCAINE VISCOUS 2% SOLN 15 ML UDC ONE (20:05)
--- NOTE | 2019-03-03 20:07 | RAD REPORT ---
EXAM DESCRIPTION: Karina Single View03/03/2019 7:55 pm CLINICAL HISTORY: Abdominal pain COMPARISON: April 2018 FINDINGS: Small right pleural effusion is suspected Lungs appear clear of acute infiltrate. Heart is normal size
[2019-03-03 20:40] LABS: Protime INR 2.73
[2019-03-03 20:41] LABS: Basophils % 0.2 % (0-1.3); Hematocrit 45.7 % (39.6-49.0); Lymphocytes % 9.7 % (15.3-44.8); MPV 9.3 fL (7.6-11.3); RBC Red Blood Cell Count 4.83 M/uL (4.33-5.43)
[2019-03-03 21:01] LABS: ALT/SGPT 22 U/L (12-78); AST/SGOT 23 U/L (15-37); Albumin 3.6 g/dL (3.4-5.0); Alkaline Phosphatase 127 U/L (45-117); BUN Blood Urea Nitrogen 23 mg/dL (7-18); Bicarbonate 23 mmol/L (21-32); Bilirubin Direct 0.1 mg/dL (0-0.2); Bilirubin Total 0.7 mg/dL (0.2-1.0); Glucose Level 211 mg/dL (74-106); NT PRO-BNP 3013 pg/mL (<450); Potassium 4.3 mmol/L (3.5-5.1); Protein, Total 7.7 g/dL (6.4-8.2); Sodium Level 136 mmol/L (136-145); Troponin (Emerg Dept Use Only) < 0.02 ng/mL (0.0-0.045)
[2019-03-03] MEDS ORDERED: NACL 0.9% IRR SOLN 2,000 ML IRR ONE (21:09)
[2019-03-03 21:12] LABS: Urine Appearance TURBID; Urine Blood 3+ (NEG); Urine Color RED; Urine Glucose 1+ (NEG); Urine Protein 3+ (NEG); Urine pH 5.5 (5.0-7.0)
[2019-03-03 21:13] LABS: Urine Bilirubin NEGATIVE (NEG)
[2019-03-03 21:14] LABS: Urine Bacteria <20 /HPF (NONE SEEN); Urine Culture Reflex Order REFLEXED; Urine RBC TNTC /HPF (NONE SEEN)
--- NOTE | 2019-03-03 23:55 | ER ---
Nurse's Notes [facility] Name: Garth Sellers Age: 78 yrs Sex: Male : 1940 Arrival Date: 03/03/2019 Time: 18:47 Bed 14 Private MD: Diagnosis: Acute hematuria Presentation: 03/03 18:30 Presenting complaint: EMS states: Pt. is A \T\ O x 4 with intermittent confusion. c/o rb1 blood in urine and abdominal pain 8/10. History of kidney cancer x 1 year and diabetes. Came from home, can ambulate with assist. BP 190/100, 186/120, P 94, 97% RA. Transition of care: patient was not received from another setting of care. Onset of symptoms was March 03, 2019. Risk Assessment: Do you want to hurt yourself or someone else? Patient reports no desire to harm self or others. 18:30 Method Of Arrival: EMS: [facility] rb1 18:30 Acuity: KEVEN 3 rb1 Triage Assessment: 18:30 General: Appears in no apparent distress. comfortable, Behavior is calm, cooperative, rb1 Denies fever. Pain: Complains of pain in suprapubic area Pain currently is 8 out of 10 on a pain scale. Neuro: Level of Consciousness is awake, alert, obeys commands, Oriented to person, place, time, situation, has intermittent confusion. Cardiovascular: Capillary refill < 3 seconds is brisk in bilateral fingers. Respiratory: Airway is patent Respiratory effort is even, unlabored, Respiratory pattern is regular, symmetrical. GI: Reports diarrhea, pt. took a laxative today. : Reports blood in urine. Derm: Skin is pink, warm \T\ dry. Musculoskeletal: Range of motion: intact in all extremities, Ambulates with assist. Historical: - Allergies: 18:30 No Known Allergies; rb1 - PMHx: 18:30 CAD; Cancer; Kidney; CHF; CVA; Diabetes - IDDM; High Cholesterol; Hypertension; rb1 Prostate enlargement; - PSHx: 18:30 cardiac stent; rb1 - Immunization history:: Adult Immunizations up to date. - Social history:: Smoking status: Patient/guardian denies using tobacco. - Ebola Screening: : Patient negative for fever greater than or equal to 101.5 degrees Fahrenheit, and additional compatible Ebola Virus Disease symptoms. Screenin:30 Abuse screen: Denies threats or abuse. Nutritional screening: No deficits noted. rb1 Tuberculosis screening: No symptoms or risk factors identified. Fall Risk None identified. Assessment: 18:30 General: See triage assessment. rb1 19:15 Reassessment: Patient appears in no apparent distress at this time. Patient and/or jb4 family updated on plan of care and expected duration. Pain level reassessed. Patient is alert, oriented x 3, equal unlabored respirations, skin warm/dry/pink. 20:35 Reassessment: Patient appears in no apparent distress at this time. Patient and/or jb4 family updated on plan of care and expected duration. Pain level reassessed. Patient is alert, oriented x 3, equal unlabored respirations, skin warm/dry/pink. PT currently refusing nausea and pain medication. [address] Walker inserted, pt reports immediate pain relief and is now denying pain. Urine is is bloody. 21:28 Reassessment: Patient appears in no apparent distress at this time. Patient and/or jb4 family updated on plan of care and expected duration. Pain level reassessed. Patient is alert, oriented x 3, equal unlabored respirations, skin warm/dry/pink. Continuous irrigation of Walker catheter started. 21:55 Reassessment: Patient appears in no apparent distress at this time. Patient and/or jb4 family updated on plan of care and expected duration. Pain level reassessed. Patient is alert, oriented x 3, equal unlabored respirations, skin warm/dry/pink. Pt received 2L of continuous irrigation, jonnathan blood noted after irrigation. Provider notified. 2L ov urine output with irrigation. Patient denies pain at this time. : 3-way catheter in place to gravity drainage Urine is jonnathan blood. 23:00 Reassessment: Patient appears in no apparent distress at this time. Patient and/or jb4 family updated on plan of care and expected duration. Pain level reassessed. Patient is alert, oriented x 3, equal unlabored respirations, skin warm/dry/pink. 03/04 00:00 Reassessment: Patient appears in no apparent distress at this time. Patient and/or jb4 family updated on plan of care and expected duration. Pain level reassessed. Patient is alert, oriented x 3, equal unlabored respirations, skin warm/dry/pink. attempted to call report, told to call back in 5 minutes. 01:08 Reassessment: Patient appears in no apparent distress at this time. Patient and/or jb4 family updated on plan of care and expected duration. Pain level reassessed. Patient is alert, oriented x 3, equal unlabored respirations, skin warm/dry/pink. PT transferred to Receiving facility via [place], [facility]. Walker is still draining jonnathan red blood. Vital Signs: 03/03 18:30 BP 179 / 80; Pulse 81; Resp 16; Pulse Ox 98% on R/A; Weight 125.65 kg (R); Height 5 ft. rb1 11 in. (180.34 cm) (R); Pain 8/10; 20:00 BP 191 / 90; Pulse 94; Resp 24; Pulse Ox 100% on R/A; jb4 20:42 BP 125 / 89; Pulse 83; Resp 22; Pulse Ox 100% on R/A; jb4 21:25 BP 132 / 74; Pulse 86; Resp 21; Pulse Ox 98% on R/A; jb4 22:00 BP 174 / 75; Pulse 89; Resp 20; Pulse Ox 100% on R/A; jb4 23:00 BP 159 / 81; Pulse 88; Resp 17; Pulse Ox 99% on R/A; jb4 23:30 BP 153 / 63; Pulse 85; Resp 19; Temp 97.7(O); Pulse Ox 98% on R/A; jb4 03/04 01:00 BP 124 / 77; Pulse 81; Resp 18; Pulse Ox 100% on R/A; jb4 03/03 18:30 Body Mass Index 38.63 (125.65 kg, 180.34 cm) rb1 ED Course: 03/03 18:30 Arm band placed on right wrist. rb1 18:30 Patient has correct armband on for positive identification. Bed in low position. Call rb1 light in reach. Side rails up X 1. Pulse ox on. NIBP on. 18:47 Patient arrived in ED. rb1 18:55 Report given to ANDRIY Rios. rb1 19:16 Triage completed. rb1 19:26 Salvador Ling MD is Attending Physician. wa 19:42 Garth Meyers RN is Primary Nurse. jb4 19:56 XRAY Chest (1 view) In Process Unspecified. EDMS 20:10 Inserted saline lock: 22 gauge in left forearm, using aseptic technique. Blood oe collected. 03/04 01:11 No provider procedures requiring assistance completed. Patient transferred, IV remains jb4 in place. Administered Medications: 01:10 Not Given (Patient Refused): Zofran 4 mg IVP once; over 2 minutes jb4 01:10 Not Given (Patient Refused): fentaNYL (PF) 50 mcg IVP once jb4 Intake: 00:34 2L of output noted with continuous irrigations. jb4 Output: 00:34 Urine: 4200ml (Walker); Total: 4200ml. jb4 00:34 2L of output noted with continuous irrigations. jb4 Outcome: 03/03 23:54 ER care complete, transfer ordered by . norma 03/04 01:11 Transferred by ground EMS to [facility]. jb4 Condition: stable Discharge instructions given to patient, family, Instructed on the need for transfer, Demonstrated understanding of instructions. 01:12 Patient left the ED. jb4 Signatures: Dispatcher [employer] EDMS Isis Fitzpatrick, ANDRIY ASHRAF [facility] Garth Meyers RN RN jb4 Gary Pelaez William, MD MD wa Corrections: (The following items were deleted from the chart) 00:34 03/03 21:55 Reassessment: Patient appears in no apparent distress at this time. Patient jb4 and/or family updated on plan of care and expected duration. Pain level reassessed. Patient is alert, oriented x 3, equal unlabored respirations, skin warm/dry/pink. Pt received 2L of continuous irrigation, jonnatahn blood noted after irrigation. Provider notified. Patient denies pain at this time. jb4 03/04 01:10 03/03 23:30 BP 153 / 63; Pulse 85bpm; Resp 19bpm; Pulse Ox 98% RA; jb4 jb4
--- NOTE | 2019-03-03 23:55 | EDPHYS ---
Physician Documentation [facility] Name: Garth Sellers Age: 78 yrs Sex: Male : 1940 Arrival Date: 03/03/2019 Time: 18:47 Bed 14 Private MD: ED Physician Salvador Ling Historical: - Allergies: 03/03 18:30 No Known Allergies; rb1 - PMHx: 18:30 CAD; Cancer; Kidney; CHF; CVA; Diabetes - IDDM; High Cholesterol; Hypertension; rb1 Prostate enlargement; - PSHx: 18:30 cardiac stent; rb1 - Immunization history:: Adult Immunizations up to date. - Social history:: Smoking status: Patient/guardian denies using tobacco. - Ebola Screening: : Patient negative for fever greater than or equal to 101.5 degrees Fahrenheit, and additional compatible Ebola Virus Disease symptoms. Vital Signs: 18:30 BP 179 / 80; Pulse 81; Resp 16; Pulse Ox 98% on R/A; Weight 125.65 kg (R); Height 5 ft. rb1 11 in. (180.34 cm) (R); Pain 8/10; 20:00 BP 191 / 90; Pulse 94; Resp 24; Pulse Ox 100% on R/A; jb4 20:42 BP 125 / 89; Pulse 83; Resp 22; Pulse Ox 100% on R/A; jb4 21:25 BP 132 / 74; Pulse 86; Resp 21; Pulse Ox 98% on R/A; jb4 22:00 BP 174 / 75; Pulse 89; Resp 20; Pulse Ox 100% on R/A; jb4 23:00 BP 159 / 81; Pulse 88; Resp 17; Pulse Ox 99% on R/A; jb4 23:30 BP 153 / 63; Pulse 85; Resp 19; Temp 97.7(O); Pulse Ox 98% on R/A; jb4 03/04 01:00 BP 124 / 77; Pulse 81; Resp 18; Pulse Ox 100% on R/A; jb4 03/03 18:30 Body Mass Index 38.63 (125.65 kg, 180.34 cm) rb1 MDM: 03/03 19:27 Patient medically screened. wy 03/03 19:36 Order name: Basic Metabolic Panel; Complete Time: 22:07 wy 03/03 19:36 Order name: CBC with Diff; Complete Time: 22:07 wy 03/03 19:36 Order name: LFT's; Complete Time: 22:07 wy 03/03 19:36 Order name: NT PRO-BNP; Complete Time: 22:07 wy 03/03 19:36 Order name: PT-INR; Complete Time: 22:07 wy 03/03 19:36 Order name: Troponin (emerg Dept Use Only); Complete Time: 22:07 wy 03/03 19:36 Order name: XRAY Chest (1 view); Complete Time: 22:07 wy 03/03 19:36 Order name: Abo/rh Typing; Complete Time: 22:07 wy 03/03 21:10 Order name: Urinalysis W/Microscopic [facility] 03/03 21:16 Order name: Urine Culture [facility] 03/03 19:36 Order name: Cardiac monitoring; Complete Time: 20:46 wy 03/03 19:36 Order name: EKG - Nurse/Tech; Complete Time: 20:46 wy 03/03 19:36 Order name: IV Saline Lock; Complete Time: 20:46 wy 03/03 19:36 Order name: Labs collected and sent; Complete Time: 20:47 wy 03/03 19:36 Order name: O2 Per Protocol; Complete Time: 20:47 wy 03/03 19:36 Order name: O2 Sat Monitoring; Complete Time: 20:47 wy 03/03 19:36 Order name: Walker; Complete Time: 20:40 wy 03/03 19:36 Order name: Urine Dipstick-Ancillary (obtain specimen); Complete Time: 20:40 wy Administered Medications: 03/04 01:10 Not Given (Patient Refused): Zofran 4 mg IVP once; over 2 minutes jb4 01:10 Not Given (Patient Refused): fentaNYL (PF) 50 mcg IVP once jb4 Disposition: 03/03/19 23:54 Transfer ordered to [facility]. Diagnosis is Acute hematuria. - Reason for transfer: Higher level of care. - Accepting physician is Dr. Abel - [facility] . - Condition is Stable. - Problem is new. - Symptoms have improved. Signatures: Dispatcher [employer] EDCO Isis Fitzpatrick RN RN [facility] Garth Meyers RN RN jb4 Salvador Ling MD MD wy Corrections: (The following items were deleted from the chart) 03/03 21:10 19:37 UA MICROSCOPIC+U.LAB.BRZ ordered. EDMS EDMS 03/04 01:12 03/03 23:54 03/03/2019 23:54 Transfer ordered to [facility]. jb4 Diagnosis is Acute hematuria. Reason for transfer: Higher level of care. Accepting physician is Dr. Abel - [facility] . Condition is Stable. Problem is new. Symptoms have improved. wa
[2019-03-04 02:09] VITALS: TEMP 97.7
[2019-03-04 02:10] VITALS: BP 124/77; O2SAT 100
--- NOTE | 2019-03-05 06:50 | EKG ---
Test Date: 2019-03-03 Test Time: 19:42:18 Change Number Operator: TRELL MEASUREMENT RESULTS: Intervals: Rate: 91 DC: 140 QRSD: 142 QT: 410 QTc: 504 [place]: P: 42 DC: 140 QRS: 96 T: 15 INTERPRETIVE STATEMENTS: Normal sinus rhythm Right bundle branch block Inferior infarct, age undetermined Possible Anterior infarct, age undetermined Abnormal ECG Compared to ECG 04/10/2018 08:59:43 Right bundle-branch block now present Atrial premature complex(es) no longer present Aberrant conduction of supraventricular beat(s) no longer present Myocardial infarct finding still present Electronically Signed On 03-05-19 06:46:21 CDT by Vikas Moore
== END 2019-03-04 01:12 | disposition short-term general hospital (02) ==
LOC: ER 18:22
DX: R31.9 Hematuria, unspecified (principal); I25.10 Atherosclerotic heart disease of native coronary artery without angina pectoris; I11.0 Hypertensive heart disease with heart failure; I50.9 Heart failure, unspecified; E11.9 Type 2 diabetes mellitus without complications; E78.00 Pure hypercholesterolemia, unspecified; N40.0 Benign prostatic hyperplasia without lower urinary tract symptoms
CPT/HCPCS: 36415; 71045; 80048; 80076; 81001; 83880; 84484; 85025; 85610; 86900; 86901; 87086; 87088; 93005; 99285

== ENCOUNTER 2019-04-14 12:03 | Inpatient (IN) | payer OTHER, BC ==
--- OUTSIDE RECORDS SUMMARY | 2019-04-14 12:10 | XMS REPORT | Clinical Summary ---
:1940 Author Organization [facility] Address [address] [place] [address] Care Team Providers Name Role Phone Janae, Yeyo Pineda Primary Care Provider Allergies No Known Allergies Medications Medication Sig Dispensed Refills Start End Date Status Date lisinopril Take 40 mg by 0 Active (PRINIVIL,ZESTRIL) mouth daily. 40 MG tablet metFORMIN Take 500 mg by 0 Active (GLUCOPHAGE) 500 mouth 2 (two) MG tablet times daily with breakfast and dinner. furosemide (LASIX) Take 40 mg by 0 Active 40 MG tablet mouth 2 (two) times daily. sertraline Take 100 mg by 0 Active (ZOLOFT) 100 MG mouth daily. tablet cholecalciferol, Take by mouth. 0 Active vitamin D3, 2,000 unit Cap rosuvastatin Take 20 mg by 0 Active (CRESTOR) 20 MG mouth daily. tablet nortriptyline Take 25 mg by 0 Active (PAMELOR) 25 MG mouth nightly. capsule QUEtiapine Take 100 mg by 0 Active (SEROQUEL) 100 MG mouth nightly. tablet insulin NPH 100 Inject 0 Active unit/mL (3 mL) subcutaneously 2 InPn (two) times daily before meals. tamsulosin Take 1 capsule 30 capsule 0 Active (FLOMAX) 0.4 mg (0.4 mg total) by 9 Cap 24 hr capsule mouth daily. metoprolol Take 200 mg by 0 03/11/20 Discontinued (TOPROL-XL) 200 MG mouth daily. 19 24 hr tablet WARFARIN SODIUM Take by mouth. 0 08/09/20 Discontinued (COUMADIN ORAL) 19 tamsulosin Take 0.4 mg by 0 03/11/20 Discontinued (FLOMAX) 0.4 mg mouth daily. 19 Cp24 24 hr capsule finasteride Take 5 mg by mouth 0 03/11/20 Discontinued (PROSCAR) 5 mg daily. 19 tablet metoprolol Take 3 tablets (75 90 tablet 0 04/11/20 (TOPROL-XL) 25 MG mg total) by mouth 9 19 24 hr tablet daily for 30 days. warfarin Take 7 tablets (7 210 tablet 0 03/11/20 Discontinued (COUMADIN) 1 MG mg total) by mouth 9 19 tablet daily for 30 days. warfarin Take 1 tablet (2 30 tablet 0 03/11/20 Discontinued (COUMADIN) 2 MG mg total) by mouth 9 19 tablet every evening for 30 days. finasteride Take 1 tablet (5 30 tablet 0 04/11/20 (PROSCAR) 5 mg mg total) by mouth 9 19 tablet daily for 30 days. 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; Sofi Manuel Urothelial carcinoma of kidney, left (HCC); MD Karen Type 2 diabetes mellitus without complication, without long-term current use of insulin (HCC); Marissa Deluca, Hematuria, unspecified type; Paroxysmal atrial fibrillation (HCC); History of stroke after 04/13/2018 Family History Medical History Relation Name Comments Cancer Father Hypertension Mother Diabetes Sister Relation Name Status Comments Father Mother Sister Social History Tobacco Use Types Packs/Day Years Used Date Former Smoker 1 40 Smokeless Tobacco: Never Used Tobacco Cessation: Counseling Given: No Comments: quit 1974 Alcohol Use Drinks/Week oz/Week Comments No Sex Assigned at Date Recorded Not on file Job Start Date Occupation Industry Not on file Not on file Not on file Travel History Travel Start Travel End No recent travel history available. Last Filed Vital Signs Vital Sign Reading Time Taken Blood Pressure 109/55 03/11/2019 11:00 AM CDT Pulse 73 03/11/2019 11:00 AM CDT Temperature 36.8 C (98.3 F) 03/11/2019 11:00 AM CDT Respiratory Rate 18 03/11/2019 11:00 AM CDT Oxygen Saturation 94% 03/11/2019 11:00 AM CDT Inhaled Oxygen Concentration - - Weight 117.8 kg (259 lb 11.2 oz) 03/08/2019 9:24 AM CDT Height 180.3 cm (5' 11") 03/04/2019 9:00 AM CDT Body Mass Index 36.22 03/08/2019 9:24 AM CDT Plan of Treatment Not on file Implants Implanted Type Area Thermal Intelligence Analyst Device Identifier Shelf Model / Expiration Serial / Date Lot Stent Uret Ult Laci [id number] - [id number] IMPLANTS Left: [employer] [id number] 01/04/2022 [id number] / Implanted: Qty: 1 on 03/09/2019 by Kam Mayer MD [employer]: UROLOGY/DRIVER LICENSE AGENT / ECOLOGY [id number] Set Stent Injection 6x28cm [id number] - [id number] Uro Stent Left: [employer] [id number] / Implanted: Qty: 1 on 12/07/2017 by Kam Mayer MD [employer]: ONCOLOGY / [id number] Procedures Procedure Name Priority Date/Time Associated Comments Diagnosis REPORT OF PROCEDURE - 03/14/2019 1:50 ENDOSCOPY SCAN PM CDT RHYTHM STRIP - SCAN 03/14/2019 1:50 PM CDT POCT-GLUCOSE METER Routine 03/11/2019 12:40 Results for this PM CDT procedure are in the results section. POCT-GLUCOSE METER Routine 03/11/2019 7:19 Results for this AM CDT procedure are in the results section. CBC W/PLT COUNT & Routine 03/11/2019 4:36 Results for this AUTO DIFFERENTIAL AM CDT procedure are in the results section. CBC W/PLT COUNT & Routine 03/11/2019 4:36 Results for this AUTO DIFFERENTIAL AM CDT procedure are in the results section. PROTHROMBIN TIME/INR Routine 03/11/2019 4:36 Results for this AM CDT procedure are in the results section. BASIC METABOLIC PANEL Routine 03/11/2019 4:36 Results for this (7) AM CDT procedure are in the results section. POCT-GLUCOSE METER Routine 03/10/2019 9:04 Results for this PM CDT procedure are in the results section. POCT-GLUCOSE METER Routine 03/10/2019 4:46 Results for this PM CDT procedure are in the results section. POCT-GLUCOSE METER Routine 03/10/2019 12:53 Results for this PM CDT procedure are in the results section. POCT-GLUCOSE METER Routine 03/10/2019 7:54 Results for this AM CDT procedure are in the results section. CBC W/PLT COUNT & Routine 03/10/2019 4:31 Results for this AUTO DIFFERENTIAL AM CDT procedure are in the results section. CBC W/PLT COUNT & Routine 03/10/2019 4:31 Results for this AUTO DIFFERENTIAL AM CDT procedure are in the results section. PROTHROMBIN TIME/INR Routine 03/10/2019 4:31 Results for this AM CDT procedure are in the results section. BASIC METABOLIC PANEL Routine 03/10/2019 4:31 Results for this (7) AM CDT procedure are in the results section. POCT-GLUCOSE METER Routine 03/09/2019 9:19 Results for this PM CDT procedure are in the results section. POCT-GLUCOSE METER Routine 03/09/2019 4:58 Results for this PM CDT procedure are in the results section. POCT-GLUCOSE METER Routine 03/09/2019 4:55 Results for this PM CDT procedure are in the results section. RHYTHM STRIP - SCAN 03/09/2019 2:27 PM CDT POCT-GLUCOSE METER Routine 03/09/2019 12:51 Results for this PM CDT procedure are in the results section. POCT-GLUCOSE METER Routine 03/09/2019 11:52 Results for this AM CDT procedure are in the results section. FL CRIMINAL JUSTICE TEACHER IN OR 30 Routine 03/09/2019 9:50 Results for this MINUTE INCREMENTS AM CDT procedure are in the results section. TISSUE EXAM AP Routine 03/09/2019 9:11 Results for this AM CDT procedure are in the results section. CYSTOSCOPY,REMOVAL 03/09/2019 8:00 Retained ureteral URETERAL STENTS AM CDT stent Gross hematuria Urothelial cancer (HCC) Case Notes 1 HRROOM OK'D BY MYRNA CYSTOSCOPY,INSERTION URETERAL 03/09/2019 8:00 AM Retained ureteral stent STENTS CDT Gross hematuria Urothelial cancer (HCC) Case Notes 1 HRROOM OK'D BY MYRNA POCT-GLUCOSE METER Routine 03/09/2019 5:47 AM CDT CBC W/PLT COUNT & AUTO Routine 03/09/2019 4:48 AM CDT Results for this DIFFERENTIAL procedure are in the results section. CBC W/PLT COUNT & AUTO Routine 03/09/2019 4:48 AM CDT Results for this DIFFERENTIAL procedure are in the results section. PROTHROMBIN TIME/INR Routine 03/09/2019 4:48 AM CDT BASIC METABOLIC PANEL (7) Routine 03/09/2019 4:48 AM CDT POCT-GLUCOSE METER Routine 03/08/2019 9:01 PM CDT XR CHEST 1 VIEW MAURIZIO 03/08/2019 8:05 PM CDT Results for this PORTABLE/BEDSIDE procedure are in the results section. POCT-GLUCOSE METER Routine 03/08/2019 5:06 PM CDT POCT-GLUCOSE METER Routine 03/08/2019 12:21 PM CDT POCT-GLUCOSE METER Routine 03/08/2019 7:22 AM CDT CBC W/PLT COUNT & AUTO Routine 03/08/2019 4:01 AM CDT Results for this DIFFERENTIAL procedure are in the results section. CBC W/PLT COUNT & AUTO Routine 03/08/2019 4:01 AM CDT Results for this DIFFERENTIAL procedure are in the results section. PROTHROMBIN TIME/INR Routine 03/08/2019 4:01 AM CDT POCT-GLUCOSE METER Routine 03/07/2019 9:25 PM CDT POCT-GLUCOSE METER Routine 03/07/2019 4:51 PM CDT POCT-GLUCOSE METER Routine 03/07/2019 12:40 PM CDT POCT-GLUCOSE METER Routine 03/07/2019 7:00 AM CDT PROTHROMBIN TIME/INR Routine 03/07/2019 6:02 AM CDT CBC W/PLT COUNT & AUTO Routine 03/07/2019 5:01 AM CDT Results for this DIFFERENTIAL procedure are in the results section. CBC W/PLT COUNT & AUTO Routine 03/07/2019 5:01 AM CDT Results for this DIFFERENTIAL procedure are in the results section. BASIC METABOLIC PANEL (7) Routine 03/07/2019 5:01 AM CDT POCT-GLUCOSE METER Routine 03/06/2019 9:08 PM CDT POCT-GLUCOSE METER Routine 03/06/2019 4:44 PM CDT POCT-GLUCOSE METER Routine 03/06/2019 12:10 PM CDT POCT-GLUCOSE METER Routine 03/06/2019 8:33 AM CDT CBC W/PLT COUNT & AUTO Routine 03/06/2019 4:15 AM CDT Results for this DIFFERENTIAL procedure are in the results section. PERIPHERAL BLOOD SMEAR - Routine 03/06/2019 4:15 AM CDT Results for this PATHOLOGIST REVIEW procedure are in the results section. CBC W/PLT COUNT & AUTO Routine 03/06/2019 4:15 AM CDT Results for this DIFFERENTIAL procedure are in the results section. PROTHROMBIN TIME/INR Routine 03/06/2019 4:15 AM CDT BASIC METABOLIC PANEL (7) Routine 03/06/2019 4:15 AM CDT POCT-GLUCOSE METER Routine 03/05/2019 9:35 PM CDT TRANSFUSION SERVICE REPORT - 03/05/2019 6:00 PM CDT SCAN POCT-GLUCOSE METER Routine 03/05/2019 4:36 PM CDT POCT-GLUCOSE METER Routine 03/05/2019 11:[address] ABDOMEN/PELVIS MAURIZIO 03/05/2019 9:03 AM CDT Results for this WITH/WITHOUT IV CONTRAST procedure are in the results section. POCT-GLUCOSE METER Routine 03/05/2019 7:50 AM CDT CBC W/PLT COUNT & AUTO Routine 03/05/2019 4:20 AM CDT Results for this DIFFERENTIAL procedure are in the results section. CBC W/PLT COUNT & AUTO Routine 03/05/2019 4:20 AM CDT Results for this DIFFERENTIAL procedure are in the results section. PROTHROMBIN TIME/INR Routine 03/05/2019 3:58 AM CDT HEPATIC FUNCTION PANEL Routine 03/05/2019 3:58 AM CDT BASIC METABOLIC PANEL (7) Routine 03/05/2019 3:58 AM CDT ECHOCARDIOGRAM REPORT - SCAN 03/04/2019 9:23 PM CDT POCT-GLUCOSE METER Routine 03/04/2019 9:18 PM CDT TROPONIN I Routine 03/04/2019 6:02 PM CDT POCT-GLUCOSE METER Routine 03/04/2019 4:30 PM CDT 2D ECHO W/ DOPPLER Routine 03/04/2019 3:50 PM CDT Results for this (CW/PW/COLOR) procedure are in the results section. TROPONIN I Routine 03/04/2019 12:30 PM CDT POCT-GLUCOSE METER Routine 03/04/2019 7:47 AM CDT ABORH, MANUAL STAT 03/04/2019 6:19 AM CDT POCT-GLUCOSE METER Routine 03/04/2019 6:10 AM CDT TROPONIN I Routine 03/04/2019 6:03 AM CDT MAGNESIUM STAT 03/04/2019 6:03 AM CDT TROPONIN I STAT 03/04/2019 6:03 AM CDT ECG 12-LEAD STAT 03/04/2019 6:02 AM CDT TYPE AND SCREEN, AUTOMATED STAT 03/04/2019 5:21 AM CDT HEMOGLOBIN A1C Routine 03/04/2019 5:21 AM CDT B-TYPE NATRIURETIC FACTOR Routine 03/04/2019 5:21 AM CDT Results for this (BNP) procedure are in the results section. CBC W/PLT COUNT & AUTO Routine 03/04/2019 4:36 AM CDT Results for this DIFFERENTIAL procedure are in the results section. CBC W/PLT COUNT & AUTO Routine 03/04/2019 4:36 AM CDT Results for this DIFFERENTIAL procedure are in the results section. PROTHROMBIN TIME/INR Routine 03/04/2019 4:36 AM CDT HEPATIC FUNCTION PANEL Routine 03/04/2019 4:36 AM CDT BASIC METABOLIC PANEL (7) Routine 03/04/2019 4:36 AM CDT after 04/13/2018 Results EKG-SCANNED (03/14/2019 1:50 PM CDT) Narrative Performed At RHYTHM STRIP - SCAN (03/14/2019 1:50 PM CDT)Only the most recent of2 resultswithin the time period is included. Narrative Performed At POC-Glucose meter (03/11/2019 12:40 PM CDT)Only the most recent of32 resultswithin the time period is included. POC-Glucose Meter 382 (H)Comment: Will 70 - 110 mg/dL [facility] Repeat Test/TESTED AT [facility] [address] [address] Specimen Blood Performing Organization Address City/State/Zipcode Phone Number [address] [address] CENTER CBC with platelet count + automated diff (03/11/2019 4:36 AM CDT)Only the most recent of8 resultswithin the time period is included. WBC 5.0 3.5 - 10.5 K/L [facility] RBC 3.36 (L) 4.63 - 6.08 M/L [facility] Hemoglobin 10.5 (L) 13.7 - 17.5 GM/DL [facility] Hematocrit 32.8 (L) 40.1 - 51.0 % [facility] MCV 97.6 (H) 79.0 - 92.[address] [facility] MCH 31.3 25.7 - 32.[address] [facility] MCHC 32.0 (L) 32.3 - 36.5 GM/DL [facility] RDW 15.1 (H) 11.6 - 14.4 % [facility] Platelets 98 (L) 150 - 450 K/CU MM [facility] MPV 11.2 9.4 - 12.[address] [facility] nRBC 0 0 - 0 /[address] [facility] % Neutros 64 % [facility] % Lymphs 24 % [facility] % Monos 10 % [facility] % Eos 2 % [facility] % Baso 0 % [facility] # Neutros 3.21 1.78 - 5.38 K/L [facility] # Lymphs 1.18 (L) 1.32 - 3.57 K/L [facility] # Monos 0.48 0.30 - 0.82 K/L [facility] # Eos 0.12 0.04 - 0.54 K/L [facility] # Baso 0.02 0.01 - 0.08 K/L [facility] Immature Granulocytes-Relative 0 0 - 1 % [facility] Specimen Blood Performing Organization Address City/State/Zipcode Phone Number [facility] [address] [place], [place] [phone] [place] Prothrombin time/INR (03/11/2019 4:36 AM CDT)Only the most recent of8 resultswithin the time period is included. Protime 13.7 11.9 - 14.[address] [facility] INR 1.1 <=5.9 [facility] Specimen Blood Narrative Performed At Effective 12/29/2018: PT Reference Range [facility] Change New: 11.9-14.2Previous: 11.7-14.7 RECOMMENDED COUMADIN/WARFARIN INR THERAPY RANGES STANDARD DOSE: 2.0-3.0Includes: PROPHYLAXIS for venous thrombosis, systemic embolization; TREATMENT for venous thrombosis and/or pulmonary embolus. HIGH RISK: Target INR is 2.5-3.5 for patients wiht mechanical heart valves. Performing Organization Address [facility] Phone Number [facility] [address] [place] [address] [place] Basic metabolic panel (03/11/2019 4:36 AM CDT)Only the most recent of7 resultswithin the time period is included. Sodium 137 136 - 145 meq/L [facility] Potassium 3.7 3.5 - 5.1 meq/L [facility] Chloride 103 98 - 107 meq/L [facility] CO2 28 22 - 29 meq/L [facility] BUN 21 7 - 21 mg/dL [facility] Creatinine 0.89 0.57 - 1.25 mg/dL [facility] Glucose 230 (H) 70 - 105 mg/dL [facility] Calcium 8.6 8.4 - 10.2 mg/dL [facility] EGFR 82Comment: ESTIMATED GFR IS mL/min/1.73 sq m [facility] NOT ACCURATE [facility] CLEARANCE IN PREDICTING GLOMERULAR FILTRATION RATE. ESTIMATED GFR IS NOT APPLICABLE FOR DIALYSIS PATIENTS. Specimen Blood Performing Organization Address City/State/Zipcode Phone Number [facility] [address] [place] [address] [facility] tech in or 30 minute increments (03/09/2019 9:50 AM CDT) Specimen Narrative Performed At FINAL REPORT [employer] Intraoperative fluoroscopy films performed by the referring physician. Number of images: 3 Fluoroscopic time: 0.3 minutes The films were submitted to PACS postprocedure. The radiologist was not present or involved with the procedure. An interpretation was not requested. The submitted images are nondiagnostic without real-time visualization. Please refer to the performing physician's dictation for all details regarding the procedure including the submitted images. The radiologist did not perform fluoroscopy. Signed: Deshawn Maya MD Report Verified Date/Time:03/11/2019 17:28:34 Reading Location: [facility] C013 Consult Reading Room Procedure Note Interface, External Ris In - 03/11/2019 5:30 PM CDT FINAL REPORT Intraoperative fluoroscopy films performed by the referring physician. Number of images: 3 Fluoroscopic time: 0.3 minutes The films were submitted to PACS postprocedure. The radiologist was not present or involved with the procedure. An interpretation was not requested. The submitted images are nondiagnostic without real-time visualization. Please refer to the performing physician's dictation for all details regarding the procedure including the submitted images. The radiologist did not perform fluoroscopy. Signed: Deshawn Maya MD Report Verified Date/Time: 03/11/2019 17:28:34 Reading Location: [facility] [id number] Consult Reading Room Performing Organization Address City/State/Zipcode Phone Number GE RIS Tissue Exam (03/09/2019 9:11 AM CDT) Case Report Surgical Pathology Report Case: [id number] [facility] Authorizing Provider:Kam Mayer MD Collected: 03/09/[address] [place] [address] CENTER Ordering Location: [facility] PERIOPERATIVE Received: 03/09/2019 1129 SERVICES Pathologist: Ion Bosch MD Specimens: A) - Bladder Tumor, RIght lateral wall B) - Bladder Tumor, Posterior wall C) - Bladder Tumor, Bladder neck DIAGNOSIS A. 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 CLINICAL HISTORY Retained ureteral stent [facility] GROSS DESCRIPTION A. Received in formalin labeled "right lateral wall" consists of a 2.5 x 2 x 0.8 cm clements-pink tissue fragments. The specimen is submitted entirely in cassette A1. [facility] B. Received in formalin labeled "posterior wall bladder tumor" consists of a one clements-pink papillary-like tissue fragment measuring 1.5 x 1 x 0.5 cm. The specimen is submitted entirely in cassette B1. C. Received in formalin labeled "bladder neck tumor" consists of clements-pink tissue fragments measuring in aggregate 6 x 4 x 1.5 cm. The specimen is submitted entirely in cassettes C1-C4. TH/ew MICROSCOPIC DESCRIPTION A-C, performed. [facility] Specimen Tissue - Bladder Tumor Tissue - Bladder Tumor Tissue - Bladder Tumor Performing Organization Address City/State/Zipcode Phone Number [facility] [address] [place] [address] CENTER XR chest 1 view portable / bedside (03/08/2019 8:05 PM CDT) Specimen Narrative Performed At FINAL REPORT GE RIS AP view of the chest dated 03/09/2019 COMPARISON: November 17, 2017 CLINICAL INFORMATION: Preop Comment:Heart is normal in size. Pulmonary vasculature is unremarkable. Lungs are clear. A curvilinear lucency is seen in the right paratracheal region may represent pneumomediastinum. There is trace right pleural effusion. Impression: Trace right pleural effusion and possible pneumomediastinum. Signed: Donny Sandhu MD Report Verified Date/Time:03/09/2019 16:46:00 Reading Location: [address] Transitional Reading Room Procedure Note Interface, External Ris In - 03/09/2019 4:48 PM CDT FINAL REPORT AP view of the chest dated 03/09/2019 COMPARISON: November 17, 2017 CLINICAL INFORMATION: Preop Comment: Heart is normal in size. Pulmonary vasculature is unremarkable. Lungs are clear. A curvilinear lucency is seen in the right paratracheal region may represent pneumomediastinum. There is trace right pleural effusion. Impression: Trace right pleural effusion and possible pneumomediastinum. Signed: Donny Sandhu MD Report Verified Date/Time: 03/09/2019 16:46:00 Reading Location: [address] Transitional Reading Room Performing Organization Address City/[facility]/Zipcode Phone Number [employer] Peripheral Blood Smear - Path Review (03/06/2019 4:15 AM CDT) Pathologist Review Cell counts confirmed. [facility] Pathologist: Torri Garrett M.D. [facility] (electronic signature) [facility] Specimen Blood Performing Organization Address City/[facility]/Zipcode Phone Number [facility] [address] [place] [phone] CENTER TRANSFUSION SERVICE REPORT - SCAN (03/05/2019 6:00 PM CDT) Narrative Performed At CT abdomen/pelvis without & with IV contrast (03/05/2019 9:03 AM CDT) Specimen Narrative Performed At FINAL REPORT [employer] INDICATION: Hematuria. COMPARISON: None. TECHNIQUE: CT of the Abdomen and Pelvis WITHOUT and WITH intravenous contrast. Exam performed according to CT urogram protocol. Enteric contrast was not used. The exam was performed according to our department dose-optimization protocol, which includes automated exposure control, adjustments of mA and kV according to patient size. Iterative reconstructions are also sometimes employed. FINDINGS: There is a left ureteral stent with the proximal end in the renal pelvis and the distal end in the bladder. There is a 2 mm calyceal stone in the left kidney lower pole. Cysts of both kidneys, the largest on the left lower pole exophytic measures 3.3 cm. Largest right kidney cyst posterior aspect partially exophytic measures 4.9 cm. No renal mass. Kidneys enhance symmetrically. No hydronephrosis. No retroperitoneal lymphadenopathy. Transurethral balloon catheter is in the bladder. Bladder minimally distended and no obvious bladder wall abnormality. Prostate gland mildly enlarged. No pelvic lymphadenopathy. Liver, pancreas, spleen, and adrenal glands are unremarkable. Tiny amount of layering sludge in the gallbladder. No biliary ductal dilatation. No bowel mass or bowel wall thickening. No peritoneal free fluid. Lower thorax notable for a small right pleural effusion and subtle calcification of the right posterior pleura. No suspicious osseous lesion demonstrated. Multilevel moderate lumbar vertebral degenerative changes. IMPRESSION: Left ureteral stent in good position. Left kidney lower pole 2 mm calyceal stone. No hydronephrosis. No renal mass. No evidence of a right uroepithelial lesion. Left uroepithelium not well evaluated because of stent. Signed: Vinny Roberts MD Report Verified Date/Time:03/05/2019 11:21:53 Reading Location: [address] Consult Reading Room Procedure Note Interface, External Ris In - 03/05/2019 11:24 AM CDT FINAL REPORT INDICATION: Hematuria. COMPARISON: None. TECHNIQUE: CT of the Abdomen and Pelvis WITHOUT and WITH intravenous contrast. Exam performed according to CT urogram protocol. Enteric contrast was not used. The exam was performed according to our department dose-optimization protocol, which includes automated exposure control, adjustments of mA and kV according to patient size. Iterative reconstructions are also sometimes employed. FINDINGS: There is a left ureteral stent with the proximal end in the renal pelvis and the distal end in the bladder. There is a 2 mm calyceal stone in the left kidney lower pole. Cysts of both kidneys, the largest on the left lower pole exophytic measures 3.3 cm. Largest right kidney cyst posterior aspect partially exophytic measures 4.9 cm. No renal mass. Kidneys enhance symmetrically. No hydronephrosis. No retroperitoneal lymphadenopathy. Transurethral balloon catheter is in the bladder. Bladder minimally distended and no obvious bladder wall abnormality. Prostate gland mildly enlarged. No pelvic lymphadenopathy. Liver, pancreas, spleen, and adrenal glands are unremarkable. Tiny amount of layering sludge in the gallbladder. No biliary ductal dilatation. No bowel mass or bowel wall thickening. No peritoneal free fluid. Lower thorax notable for a small right pleural effusion and subtle calcification of the right posterior pleura. No suspicious osseous lesion demonstrated. Multilevel moderate lumbar vertebral degenerative changes. IMPRESSION: Left ureteral stent in good position. Left kidney lower pole 2 mm calyceal stone. No hydronephrosis. No renal mass. No evidence of a right uroepithelial lesion. Left uroepithelium not well evaluated because of stent. Signed: Vinny Roberts MD Report Verified Date/Time: 03/05/2019 11:21:53 Reading Location: [facility] B1 [id number] Ortho Consult Reading Room Performing Organization Address City/State/Zipcode Phone Number GE RIS Hepatic function panel (03/05/2019 3:58 AM CDT)Only the most recent of2 resultswithin the time period is included. Protein, Total 6.4 6.0 - 8.3 gm/dL [facility] Albumin 3.4 (L) 3.5 - 5.0 g/dL [facility] Total Bilirubin 0.7 0.2 - 1.2 mg/dL [facility] Bilirubin, Direct 0.3 0.1 - 0.5 mg/dL [facility] Alkaline Phosphatase 85 40 - 150 U/L [facility] AST 29 5 - 34 U/L [facility] ALT 17 6 - 55 U/L [facility] Specimen Blood Performing Organization Address [facility]/Zipcode Phone Number [facility] [address] [place], [place] [id number] [phone] [place] ECHOCARDIOGRAM REPORT - SCAN (03/04/2019 9:23 PM CDT) Narrative Performed At Troponin I (03/04/2019 6:02 PM CDT)Only the most recent of4 resultswithin the time period is included. Troponin I 0.03 0.00 - 0.03 ng/mL [facility] Specimen Blood Narrative Performed At Troponin I (TnI) levels must be interpreted [facility] in the context of the presenting symptoms and the clinical findings. Elevated TnI levels indicate myocardial damage, but are not specific for ischemic heart disease. Elevated TnI levels are seen in patients with other cardiac conditions (including myocarditis and congestive heart failure), and slight TnI elevations occur in patients with other conditions, including sepsis, renal failure, acidosis, acute neurological disease, and persistent tachyarrhythmia. Performing Organization Address [facility] Centercode Phone Number [facility] [address] [place] [address] [phone] [place] 2D Echo W/Doppler(CW/PW/Color) (03/04/2019 3:50 PM CDT) Ejection Fraction [facility]NEAH Power SystemsPL[facility] Specimen Narrative Performed At Transthoracic Echocardiography Report (TTE) [facility] Demographics Patient NameCONALTY, JAMESDate of Study03/04/2019 RAY Male Visit [id number] Unknown Room [id number] Number Date of 1940Referring Physician Age 78 year(s)Operations Inspector Hao Farah Editor Index Luis Dolan Interpreting Yang Babb Procedure Type of Study TTE procedure:2DECHO W DOPPLER(CW/PW/COLOR) (Routine) Indications:Acute Chest Pain/ Suspected CAD. Clinical History HGB 14.0 HCT 42.9 % DM, CAD, CVA, HX OF RENAL MASS, NSVT, HTN, HLD Contrast Medium: Definity. Amount - 4 ml Height: 71 inches Weight: 117.48 kg (259 lbs) BSA: 2.35 m^2 BMI: 36.12 kg/m^2 HR: 84 bpm BP: 98/52 mmHg Summary Technically difficult exam. 1. LV is normal in size . LV function is mildly reduced. LVEF is 40-44%. Wall motion abnormality noted in the RCA / circ territory 2. Diastology: Grade 1 diastolic dysfunction 3. No pericardial effusion Previous Study No previous echo is available for comparison Signature Findings Left Ventricle LV endocardium is partially visualized with IV ul trasound enhancing agent. The left ventricle is ch giuliana size (by PSLAX dimension) is normal (male - LV IDd 4.2-5.8cm) . Normal LV wall thickness. The fo llowing segment(s) appear hypokinetic: basal to mi d inferior, inferoalteral . Global LV systolic fu nction mildly reduced . Estimated LVEF by qu alitative assessment is mildly reduced (40-44%) . Left AtriumLA is not well visualized. Right VentricleRV is not well visualized. Right Atrium The RA is not well visualized. Aortic Valve AoV is not well visualized. Mitral Valve MV is not well visualized. Tricuspid ValveTV is not well visualized. Pulmonic Valve PV is not well visualized. AortaAortic root size (SInus of Valsalva diameter) is in determinate (not well seen) . PericardiumNo pericardial effusion is visualized. IVC/SVC/PA/PV/PleuralThe estimated RA pressure by IVC dynamics in determinate . Chambers/Structures Left Ventricle LVIDd: 4.68 cm LV Septum Diastolic: 1.01 cm LV PW Diastolic: 0.97 cm LVEDV Villalobos's:35.39 ml LVESV Villalobos's:14.81 ml LVEF Villalobos's: 58.2 %LVEDV I: 15 ml/m^2 LVESVI: 6 ml/m^2 Doppler/Quantitative Measurements LVOT Peak Velocity: 0.81 m/s Peak Gradient: 2.62 mmHg Mean Velocity: 0.5 m/sMean Gradient: 1.23 mmHg LVOT VTI: 14.95 cm Procedure Note Interface, External Ris In - 03/04/2019 6:35 PM CDT Transthoracic Echocardiography Report (TTE) Demographics Patient Name DONNY SELLERS Date of Study 03/04/2019 RAY Gender Male Visit Number [id number] Race Unknown Room Number 1050 Number Date of 1940 Referring Physician Age 78 year(s) Operations Inspector Hao Farah Editor Index Luis Dolan Interpreting Physician HIRA Babb Procedure Type of Study TTE procedure:2DECHO W DOPPLER(CW/PW/COLOR) (Routine) Indications:Acute Chest Pain/ Suspected CAD. Clinical History HGB 14.0 HCT 42.9 % DM, CAD, CVA, HX OF RENAL MASS, NSVT, HTN, HLD Contrast Medium: Definity. Amount - 4 ml Height: 71 inches Weight: 117.48 kg (259 lbs) BSA: 2.35 m^2 BMI: 36.12 kg/m^2 HR: 84 bpm BP: 98/52 mmHg Summary Technically difficult exam. 1. LV is normal in size . LV function is mildly reduced. LVEF is 40-44%. Wall motion abnormality noted in the RCA / circ territory 2. Diastology: Grade 1 diastolic dysfunction 3. No pericardial effusion Previous Study No previous echo is available for comparison Signature Findings Left Ventricle LV endocardium is partially visualized with IV ultrasound enhancing agent. The left ventricle is chamber size (by PSLAX dimension) is normal (male - LVIDd 4.2-5.8cm) . Normal LV wall thickness. The following segment(s) appear hypokinetic: basal to mid inferior, inferoalteral . Global LV systolic function mildly reduced . Estimated LVEF by qualitative assessment is mildly reduced (40-44%) . Left Atrium LA is not well visualized. Right Ventricle RV is not well visualized. Right Atrium The RA is not well visualized. Aortic Valve AoV is not well visualized. Mitral Valve MV is not well visualized. Tricuspid Valve TV is not well visualized. Pulmonic Valve PV is not well visualized. Aorta Aortic root size (SInus of Valsalva diameter) is indeterminate (not well seen) . Pericardium No pericardial effusion is visualized. IVC/SVC/PA/PV/Pleural The estimated RA pressure by IVC dynamics indeterminate . Chambers/Structures Left Ventricle LVIDd: 4.68 cm LV Septum Diastolic: 1.01 cm LV PW Diastolic: 0.97 cm LVEDV Villalobos's:35.39 ml LVESV Villalobos's:14.81 ml LVEF Villalobos's: 58.2 % LVEDVI: 15 ml/m^2 LVESVI: 6 ml/m^2 Doppler/Quantitative Measurements LVOT Peak Velocity: 0.81 m/s Peak Gradient: 2.62 mmHg Mean Velocity: 0.5 m/s Mean Gradient: 1.23 mmHg LVOT VTI: 14.95 cm Performing Organization Address City/[facility]/Zipcode Phone Number [facility] MKCKESSON CPACS ABORH, manual (03/04/2019 6:19 AM CDT) ABO Grouping O [facility] Rh Factor POS [facility] Specimen Blood Performing Organization Address [facility]/Zipcode Phone Number [facility] [address] [place] [address] Magnesium (03/04/2019 6:03 AM CDT) Magnesium 1.9 1.6 - 2.6 mg/dL [facility] Specimen Blood Performing Organization Address [facility] Centercoaz Phone Number [address] [address] CENTER ECG 12 lead (03/04/2019 6:02 AM CDT) Specimen Narrative Performed At Ventricular Rate 80 BPM GE MUSE Atrial Rate 80 BPM P-R Interval 176 ms QRS Duration 146 ms Q-T Interval 448 ms QTC Calculation(Bazett) 516 ms P [place] 26 degrees R [place] 97 degrees T [place] 25 degrees Normal sinus rhythm Right bundle branch block Possible Inferior infarct , age undetermined Abnormal ECG No previous ECGs available Confirmed by Clayton GLEASON MICHAEL ([id number]) on 03/04/2019 7:05:55 AM Procedure Note Interface, External Ris In - 03/04/2019 7:06 AM CDT Ventricular Rate 80 BPM Atrial Rate 80 BPM P-R Interval 176 ms QRS Duration 146 ms Q-T Interval 448 ms QTC Calculation(Bazett) 516 ms P [place] 26 degrees R [place] 97 degrees T [place] 25 degrees Normal sinus rhythm Right bundle branch block Possible Inferior infarct , age undetermined Abnormal ECG No previous ECGs available Confirmed by Clayton GLEASON MICHAEL ([id number]) on 03/04/2019 7:05:55 AM Performing Organization Address [facility] Phone Number GE MUSE Type and screen, automated (03/04/2019 5:21 AM CDT) ABO/RH AUTOMATED (BEAKER) O POSITIVE [facility] Ab Scrn NEGATIVE [facility] Specimen Blood Performing Organization Address City/[facility] Centercode Phone Number [address] [address] B-type Natriuretic Factor (BNP) (03/04/2019 5:21 AM CDT) BNP 893 (H) 0 - 100 pg/mL [facility] Specimen Blood Performing Organization Address City/[facility] Centercoaz Phone Number [facility] [address] [place] [address] CENTER Hemoglobin A1c (03/04/2019 5:21 AM CDT) Hemoglobin A1C 6.3 (H) 4.3 - 6.1 % [facility] Specimen Blood Performing Organization Address City/State/Zipcode Phone Number [facility] [address] [place] [address] [place] after 04/13/2018 Insurance Payer Benefit Plan / Subscriber ID Type Phone Address Group MEDICARE MEDICARE A B xxxxxxxxxxx Medicare BLUE CROSS/BLUE [place] INDEMNITY [place] xxxxxxxxxxxx PPO [phone] [address] [place] [address] (Home) [place] [address] Advance Directives For more information, please contact:[facility] [place] [address] [phone] Code Status Date Activated Date Inactivated Comments Full Code 03/04/2019 2:49 AM 03/11/2019 4:34 PM This code status was determined by: Patient
--- OUTSIDE RECORDS SUMMARY | 2019-04-14 12:11 | XMS REPORT ---
:1940 [facility] Address [address] [place] [address] Dr. Lira [address] [place] [address] Care Team Providers Name Role Phone ANDREW DUARTE Unavailable Unavailable BETH HERNANDEZADDY Unavailable Unavailable LINK, KAM DUDLEY Unavailable Unavailable Problems This patient has no known problems. Allergies, Adverse Reactions, Alerts This patient has no known allergies or adverse reactions. Medications This patient has no known medications. Results Test Description Test Time Test Comments Text Results Atomic Results Result Comments SHY SRINIVASAN IN 2019-03-11 Reason for FINAL REPORT PATIENT OR/30 MINUTE 17:28:00 exam:->CYSTOSCOPY ID: [id number] INCREMENTS Intraoperative fluoroscopy films performed by the referring physician. Number of images: 3Fluoroscopic time: 0.3 minutes The films were submitted to PACS postprocedure. The radiologist was not present or involved with the procedure. An interpretation was not requested. The submitted images are nondiagnostic without real-time visualization. Please refer to the performing physician's dictation for all details regarding the procedure including the submitted images. The radiologist did not perform fluoroscopy. Signed: Deshawn Maya Verified Date/Time: 03/11/2019 17:28:34 Reading Location: [facility] C013W Consult Reading Room -GLUCOSE METER 2019-03-11 12:44:00 Test Item Value Reference Range Comments POC-GLUCOSE METER (BEAKER) (test 382 mg/dL 70-110 Will Repeat Test/TESTED AT [facility] rtbg=9612) [address] [place] [address] POCT-GLUCOSE [id number] 07:43:00 Test Item Value Reference Range Comments POC-GLUCOSE METER (BEAKER) 253 mg/dL 70-110 TESTED AT [address] (test ljlr=8392) [facility] [address] BASIC METABOLIC [id number] 05:38:00 Test Item Value Reference Range Comments SODIUM (BEAKER) (test 137 meq/L 136-145 aksi=258) POTASSIUM (BEAKER) (test 3.7 meq/L 3.5-5.1 mkgj=197) CHLORIDE (BEAKER) (test 103 meq/L 98-107 hzdg=180) CO2 (BEAKER) (test 28 meq/L 22-29 jznc=182) BLOOD UREA NITROGEN 21 mg/dL 7-21 (BEAKER) (test jupy=610) CREATININE (BEAKER) (test 0.89 mg/dL 0.57-1.25 klcp=653) GLUCOSE RANDOM (BEAKER) 230 mg/dL 70-105 (test kmwt=558) CALCIUM (BEAKER) (test 8.6 mg/dL 8.4-10.2 bscg=340) EGFR (BEAKER) (test 82 mL/min/1.73 sq m ESTIMATED GFR IS NOT ejhm=0043) ACCURATE CREATININE CLEARANCE IN PREDICTING GLOMERULAR FILTRATION RATE. ESTIMATED GFR IS NOT APPLICABLE FOR DIALYSIS PATIENTS. PROTHROMBIN [id number] 05:32:00 Test Item Value Reference Range Comments PROTIME (BEAKER) (test lksq=709) 13.7 seconds 11.9-14.2 INR (BEAKER) (test kqll=567) 1.1 <=5.9 Effective 12/29/2018: PT Reference Range ChangeNew: 11.9-14.2 Previous: 11.7- 14.7RECOMMENDED COUMADIN/WARFARIN INR THERAPY RANGESSTANDARD DOSE: 2.0-3.0 Includes: PROPHYLAXIS for venous thrombosis, systemic embolization; TREATMENT for venous thrombosis and/or pulmonary embolus.HIGH RISK: Target INR is2.5-3.5 for patients wiht mechanical heart valves.CBC W/PLT COUNT & AUTO [id number] 04:56:00 Test Item Value Reference Range Comments WHITE BLOOD CELL COUNT (BEAKER) (test vohi=289) 5.0 K/ L 3.5-10.5 RED BLOOD CELL COUNT (BEAKER) (test sssm=746) 3.36 M/ L 4.63-6.08 HEMOGLOBIN (BEAKER) (test kwvf=908) 10.5 GM/DL 13.7-17.5 HEMATOCRIT (BEAKER) (test pgzs=591) 32.8 % 40.1-51.0 MEAN CORPUSCULAR VOLUME (BEAKER) (test cxeh=074) 97.6 fL 79.0-92.2 MEAN CORPUSCULAR HEMOGLOBIN (BEAKER) (test 31.3 pg 25.7-32.2 cqbd=491) MEAN CORPUSCULAR HEMOGLOBIN CONC (BEAKER) (test 32.0 GM/DL 32.3-36.5 wqvq=038) RED CELL DISTRIBUTION WIDTH (BEAKER) (test 15.1 % 11.6-14.4 nfwq=170) PLATELET COUNT (BEAKER) (test zxtg=143) 98 K/CU MM 150-450 MEAN PLATELET VOLUME (BEAKER) (test dylm=716) 11.2 fL 9.4-12.4 NUCLEATED RED BLOOD CELLS (BEAKER) (test 0 /100 WBC 0-0 qurm=387) NEUTROPHILS RELATIVE PERCENT (BEAKER) (test 64 % ekhb=079) LYMPHOCYTES RELATIVE PERCENT (BEAKER) (test 24 % qhsr=074) MONOCYTES RELATIVE PERCENT (BEAKER) (test 10 % pmkh=993) EOSINOPHILS RELATIVE PERCENT (BEAKER) (test 2 % zcvv=822) BASOPHILS RELATIVE PERCENT (BEAKER) (test 0 % zipx=223) NEUTROPHILS ABSOLUTE COUNT (BEAKER) (test 3.21 K/ L 1.78-5.38 yhxh=439) LYMPHOCYTES ABSOLUTE COUNT (BEAKER) (test 1.18 K/ L 1.32-3.57 eslj=056) MONOCYTES ABSOLUTE COUNT (BEAKER) (test cbhr=168) 0.48 K/ L 0.30-0.82 EOSINOPHILS ABSOLUTE COUNT (BEAKER) (test 0.12 K/ L 0.04-0.54 cbsx=118) BASOPHILS ABSOLUTE COUNT (BEAKER) (test mnug=408) 0.02 K/ L 0.01-0.08 IMMATURE GRANULOCYTES-RELATIVE PERCENT (BEAKER) 0 % 0-1 (test kmzb=3833) POCT-GLUCOSE [id number] 21:10:00 Test Item Value Reference Range Comments POC-GLUCOSE METER (BEAKER) 292 mg/dL 70-110 TESTED AT [facility] [address] [facility] (test qusw=4888) [facility] [address] POCT-GLUCOSE [id number] 16:56:00 Test Item Value Reference Range Comments POC-GLUCOSE METER (BEAKER) 295 mg/dL 70-110 TESTED AT [facility] [address] [facility] (test uulo=2890) [facility] [address] TISSUE [id number] 15:24:00Surgical Pathology Report Case: [id number] Authorizing Provider: Kam Mayer MD Collected: 03/09/2019 0911 Ordering Location: [facility] PERIOPERATIVE Received: 03/09/2019 1129 SERVICES Pathologist: Ion Bosch MD Specimens: A) - Bladder Tumor, RIght lateral wall B) - Bladder Tumor, Posterior wall C) - Bladder Tumor, Bladder neck A. 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 URINARY BLADDER, POSTERIOR WALL TUMOR, TRANS-URETHRAL RESECTION: - PAPILLARY UROTHELIAL CARCINOMA , LOW GRADE (WHO GRADE 1), NONINVASIVE - MUSCULARIS PROPRIA IS NOT PRESENTC. 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 Received in formalin labeled "right lateral wall" consists of a 2.5 x 2 x 0.8 cm clements-pink tissue fragments. The specimen is submitted entirely in cassette A1.B. Received in formalin labeled "posterior wall bladder tumor" consists of a one clements-pink papillary-like tissue fragment measuring 1.5 x 1 x 0.5 cm. The specimen is submitted entirely in cassette B1.C. Received in formalin labeled "bladder neck tumor" consists of clements-pink tissue fragments measuring in aggregate 6 x 4 x 1.5 cm. The specimen is submitted entirely in cassettes C1-C4. TH/Iwona-C, performed.POCT-GLUCOSE [id number] 13:02:00 Test Item Value Reference Range Comments POC-GLUCOSE METER (BEAKER) 348 mg/dL 70-110 TESTED AT [facility] [address] [facility] (test ibpv=2838) [facility] [address] POCT-GLUCOSE [id number] 08:10:00 Test Item Value Reference Range Comments POC-GLUCOSE METER (BEAKER) 237 mg/dL 70-110 TESTED AT [facility] [address] [facility] (test unzc=9307) [facility] [address] BASIC METABOLIC [id number] 05:52:00 Test Item Value Reference Range Comments SODIUM (BEAKER) (test 136 meq/L 136-145 ekyl=748) POTASSIUM (BEAKER) (test 4.0 meq/L 3.5-5.1 koet=055) CHLORIDE (BEAKER) (test 103 meq/L 98-107 uhsy=546) CO2 (BEAKER) (test 27 meq/L 22-29 vfqu=033) BLOOD UREA NITROGEN 20 mg/dL 7-21 (BEAKER) (test awrw=775) CREATININE (BEAKER) (test 0.97 mg/dL 0.57-1.25 rnrt=561) GLUCOSE RANDOM (BEAKER) 231 mg/dL 70-105 (test dyfg=633) CALCIUM (BEAKER) (test 8.4 mg/dL 8.4-10.2 rdlc=327) EGFR (BEAKER) (test 75 mL/min/1.73 sq m ESTIMATED GFR IS NOT bghf=1981) ACCURATE CREATININE CLEARANCE IN PREDICTING GLOMERULAR FILTRATION RATE. ESTIMATED GFR IS NOT APPLICABLE FOR DIALYSIS PATIENTS. PROTHROMBIN TIME/[id number] 05:28:00 Test Item Value Reference Range Comments PROTIME (BEAKER) (test kcwq=658) 13.6 seconds 11.9-14.2 INR (BEAKER) (test zvtw=116) 1.1 <=5.9 Effective 12/29/2018: PT Reference Range ChangeNew: 11.9-14.2 Previous: 11.7- 14.7RECOMMENDED COUMADIN/WARFARIN INR THERAPY RANGESSTANDARD DOSE: 2.0-3.0 Includes: PROPHYLAXIS for venous thrombosis, systemic embolization; TREATMENT for venous thrombosis and/or pulmonary embolus.HIGH RISK: Target INR is2.5-3.5 for patients wiht mechanical heart valves.CBC W/PLT COUNT & AUTO [id number] 04:53:00 Test Item Value Reference Range Comments WHITE BLOOD CELL COUNT (BEAKER) (test zhll=672) 5.8 K/ L 3.5-10.5 RED BLOOD CELL COUNT (BEAKER) (test nriu=587) 3.30 M/ L 4.63-6.08 HEMOGLOBIN (BEAKER) (test syzx=283) 10.4 GM/DL 13.7-17.5 HEMATOCRIT (BEAKER) (test mbzt=605) 32.0 % 40.1-51.0 MEAN CORPUSCULAR VOLUME (BEAKER) (test zqvp=698) 97.0 fL 79.0-92.2 MEAN CORPUSCULAR HEMOGLOBIN (BEAKER) (test 31.5 pg 25.7-32.2 misl=375) MEAN CORPUSCULAR HEMOGLOBIN CONC (BEAKER) (test 32.5 GM/DL 32.3-36.5 clhd=431) RED CELL DISTRIBUTION WIDTH (BEAKER) (test 15.4 % 11.6-14.4 ljyz=951) PLATELET COUNT (BEAKER) (test owmf=232) 101 K/CU MM 150-450 MEAN PLATELET VOLUME (BEAKER) (test ehmg=261) 11.3 fL 9.4-12.4 NUCLEATED RED BLOOD CELLS (BEAKER) (test 0 /100 WBC 0-0 hnco=160) NEUTROPHILS RELATIVE PERCENT (BEAKER) (test 67 % woet=333) LYMPHOCYTES RELATIVE PERCENT (BEAKER) (test 21 % hwqf=366) MONOCYTES RELATIVE PERCENT (BEAKER) (test 11 % dupk=817) EOSINOPHILS RELATIVE PERCENT (BEAKER) (test 1 % msar=467) BASOPHILS RELATIVE PERCENT (BEAKER) (test 0 % ozdb=216) NEUTROPHILS ABSOLUTE COUNT (BEAKER) (test 3.93 K/ L 1.78-5.38 rkjl=465) LYMPHOCYTES ABSOLUTE COUNT (BEAKER) (test 1.22 K/ L 1.32-3.57 xyun=041) MONOCYTES ABSOLUTE COUNT (BEAKER) (test 0.62 K/ L 0.30-0.82 zsau=687) EOSINOPHILS ABSOLUTE COUNT (BEAKER) (test 0.03 K/ L 0.04-0.54 aoqn=805) BASOPHILS ABSOLUTE COUNT (BEAKER) (test 0.02 K/ L 0.01-0.08 qmfj=767) IMMATURE GRANULOCYTES-RELATIVE PERCENT (BEAKER) 0 % 0-1 (test dlou=5641) POCT-GLUCOSE [id number] 21:26:00 Test Item Value Reference Range Comments POC-GLUCOSE METER (BEAKER) 282 mg/dL 70-110 TESTED AT [address] (test pmle=4272) [facility] [address] POCT-GLUCOSE [id number] 17:00:00 Test Item Value Reference Range Comments POC-GLUCOSE METER (BEAKER) 363 mg/dL 70-110 TESTED AT [address] (test gjsl=3120) [facility] [address] POCT-GLUCOSE [id number] 17:00:00 Test Item Value Reference Range Comments POC-GLUCOSE METER (BEAKER) > mg/dL 70-110 OUTSIDE MEASURING RANGETESTED AT (test surk=3382) [address] [address] RAD, CHEST, 1 VIEW, NON [id number] 16:46:00Reason for exam:->PreopShould this be performed at the bedside?->YesFINAL REPORT AP view of the chest dated 03/09/2019 COMPARISON: November 17, 2017 CLINICAL INFORMATION: Preop Comment: Heart is normal in size. Pulmonary vasculature is unremarkable.Lungs are clear. A curvilinear lucency is seen in the right paratracheal region may represent pneumomediastinum. There is trace right pleural effusion. Impression: Trace right pleural effusion and possible pneumomediastinum. Signed: Donny Sandhu Verified Date/Time: 03/09/2019 16:46:00 ReadingLocation: [facility] B1 C013T Transitional Reading Room POCT-GLUCOSE [id number] 13:03:00 Test Item Value Reference Range Comments POC-GLUCOSE METER (BEAKER) 283 mg/dL 70-110 TESTED AT [address] (test cnbh=6193) [facility] [address] POCT-GLUCOSE [id number] 11:55:00 Test Item Value Reference Range Comments POC-GLUCOSE METER (BEAKER) 261 mg/dL 70-110 TESTED AT [address] (test usdf=5849) [facility] [address] BASIC METABOLIC [id number] 06:42:00 Test Item Value Reference Range Comments SODIUM (BEAKER) (test 134 meq/L 136-145 jkrg=699) POTASSIUM (BEAKER) (test 4.0 meq/L 3.5-5.1 kopr=808) CHLORIDE (BEAKER) (test 101 meq/L 98-107 icnr=138) CO2 (BEAKER) (test 28 meq/L 22-29 shli=318) BLOOD UREA NITROGEN 21 mg/dL 7-21 (BEAKER) (test fhbi=266) CREATININE (BEAKER) (test 0.88 mg/dL 0.57-1.25 xjxp=408) GLUCOSE RANDOM (BEAKER) 255 mg/dL 70-105 (test bust=879) CALCIUM (BEAKER) (test 8.6 mg/dL 8.4-10.2 wytw=028) EGFR (BEAKER) (test 84 mL/min/1.73 sq m ESTIMATED GFR IS NOT ergu=9890) ACCURATE CREATININE CLEARANCE IN PREDICTING GLOMERULAR FILTRATION RATE. ESTIMATED GFR IS NOT APPLICABLE FOR DIALYSIS PATIENTS. POCT-GLUCOSE [id number] 05:51:00 Test Item Value Reference Range Comments POC-GLUCOSE METER (BEAKER) 268 mg/dL 70-110 TESTED AT [address] (test jiif=0020) [facility] [address] PROTHROMBIN TIME/[id number] 05:49:00 Test Item Value Reference Range Comments PROTIME (BEAKER) (test xxbz=313) 13.2 seconds 11.9-14.2 INR (BEAKER) (test qkmy=643) 1.1 <=5.9 Effective 12/29/2018: PT Reference Range ChangeNew: 11.9-14.2 Previous: 11.7- 14.7RECOMMENDED COUMADIN/WARFARIN INR THERAPY RANGESSTANDARD DOSE: 2.0-3.0 Includes: PROPHYLAXIS for venous thrombosis, systemic embolization; TREATMENT for venous thrombosis and/or pulmonary embolus.HIGH RISK: Target INR is2.5-3.5 for patients wiht mechanical heart valves.CBC W/PLT COUNT & AUTO [id number] 05:42:00 Test Item Value Reference Range Comments WHITE BLOOD CELL COUNT (BEAKER) (test onfg=629) 4.7 K/ L 3.5-10.5 RED BLOOD CELL COUNT (BEAKER) (test bttt=390) 3.59 M/ L 4.63-6.08 HEMOGLOBIN (BEAKER) (test fwxn=510) 11.2 GM/DL 13.7-17.5 HEMATOCRIT (BEAKER) (test pcry=416) 34.7 % 40.1-51.0 MEAN CORPUSCULAR VOLUME (BEAKER) (test igoa=477) 96.7 fL 79.0-92.2 MEAN CORPUSCULAR HEMOGLOBIN (BEAKER) (test 31.2 pg 25.7-32.2 bxta=995) MEAN CORPUSCULAR HEMOGLOBIN CONC (BEAKER) (test 32.3 GM/DL 32.3-36.5 liuy=136) RED CELL DISTRIBUTION WIDTH (BEAKER) (test 15.2 % 11.6-14.4 gyjq=536) PLATELET COUNT (BEAKER) (test uviq=380) 86 K/CU MM 150-450 MEAN PLATELET VOLUME (BEAKER) (test paxx=189) 11.3 fL 9.4-12.4 NUCLEATED RED BLOOD CELLS (BEAKER) (test 0 /100 WBC 0-0 aznk=632) NEUTROPHILS RELATIVE PERCENT (BEAKER) (test 71 % wdye=099) LYMPHOCYTES RELATIVE PERCENT (BEAKER) (test 18 % vhca=893) MONOCYTES RELATIVE PERCENT (BEAKER) (test 10 % yshg=674) EOSINOPHILS RELATIVE PERCENT (BEAKER) (test 1 % nyod=748) BASOPHILS RELATIVE PERCENT (BEAKER) (test 0 % sycu=367) NEUTROPHILS ABSOLUTE COUNT (BEAKER) (test 3.34 K/ L 1.78-5.38 qedd=105) LYMPHOCYTES ABSOLUTE COUNT (BEAKER) (test 0.84 K/ L 1.32-3.57 uivb=792) MONOCYTES ABSOLUTE COUNT (BEAKER) (test zllx=036) 0.46 K/ L 0.30-0.82 EOSINOPHILS ABSOLUTE COUNT (BEAKER) (test 0.05 K/ L 0.04-0.54 antw=921) BASOPHILS ABSOLUTE COUNT (BEAKER) (test gabk=391) 0.02 K/ L 0.01-0.08 IMMATURE GRANULOCYTES-RELATIVE PERCENT (BEAKER) 1 % 0-1 (test pkoc=7312) POCT-GLUCOSE [id number] 21:08:00 Test Item Value Reference Range Comments POC-GLUCOSE METER (BEAKER) 290 mg/dL 70-110 TESTED AT [facility] [address] [facility] (test aynu=9263) [facility] [address] POCT-GLUCOSE [id number] 17:12:00 Test Item Value Reference Range Comments POC-GLUCOSE METER (BEAKER) 328 mg/dL 70-110 TESTED AT [facility] [address] [facility] (test dxmy=3596) [facility] [address] POCT-GLUCOSE [id number] 12:28:00 Test Item Value Reference Range Comments POC-GLUCOSE METER (BEAKER) 300 mg/dL 70-110 TESTED AT [address] (test jans=8361) [facility] [address] POCT-GLUCOSE [id number] 07:30:00 Test Item Value Reference Range Comments POC-GLUCOSE METER (BEAKER) 259 mg/dL 70-110 TESTED AT [address] (test ehyh=6439) [facility] [address] PROTHROMBIN [id number] 05:08:00 Test Item Value Reference Range Comments PROTIME (BEAKER) (test tkra=061) 14.1 seconds 11.9-14.2 INR (BEAKER) (test htpl=285) 1.2 <=5.9 Effective 12/29/2018: PT Reference Range ChangeNew: 11.9-14.2 Previous: 11.7- 14.7RECOMMENDED COUMADIN/WARFARIN INR THERAPY RANGESSTANDARD DOSE: 2.0-3.0 Includes: PROPHYLAXIS for venous thrombosis, systemic embolization; TREATMENT for venous thrombosis and/or pulmonary embolus.HIGH RISK: Target INR is2.5-3.5 for patients wiht mechanical heart valves.CBC W/PLT COUNT & AUTO [id number] 04:57:00 Test Item Value Reference Range Comments WHITE BLOOD CELL COUNT (BEAKER) (test kspf=117) 5.8 K/ L 3.5-10.5 RED BLOOD CELL COUNT (BEAKER) (test ueow=315) 3.63 M/ L 4.63-6.08 HEMOGLOBIN (BEAKER) (test wjdo=490) 11.5 GM/DL 13.7-17.5 HEMATOCRIT (BEAKER) (test fqec=306) 34.7 % 40.1-51.0 MEAN CORPUSCULAR VOLUME (BEAKER) (test qnbg=828) 95.6 fL 79.0-92.2 MEAN CORPUSCULAR HEMOGLOBIN (BEAKER) (test 31.7 pg 25.7-32.2 ruqw=216) MEAN CORPUSCULAR HEMOGLOBIN CONC (BEAKER) (test 33.1 GM/DL 32.3-36.5 rnfa=545) RED CELL DISTRIBUTION WIDTH (BEAKER) (test 15.2 % 11.6-14.4 kgtw=320) PLATELET COUNT (BEAKER) (test xegg=982) 88 K/CU MM 150-450 MEAN PLATELET VOLUME (BEAKER) (test hwzr=820) 11.2 fL 9.4-12.4 NUCLEATED RED BLOOD CELLS (BEAKER) (test 0 /100 WBC 0-0 hxdc=534) NEUTROPHILS RELATIVE PERCENT (BEAKER) (test 66 % ctvl=596) LYMPHOCYTES RELATIVE PERCENT (BEAKER) (test 21 % kdvh=133) MONOCYTES RELATIVE PERCENT (BEAKER) (test 12 % dsog=643) EOSINOPHILS RELATIVE PERCENT (BEAKER) (test 1 % xwnu=811) BASOPHILS RELATIVE PERCENT (BEAKER) (test 0 % xodf=406) NEUTROPHILS ABSOLUTE COUNT (BEAKER) (test 3.83 K/ L 1.78-5.38 tqrb=326) LYMPHOCYTES ABSOLUTE COUNT (BEAKER) (test 1.21 K/ L 1.32-3.57 fmwn=425) MONOCYTES ABSOLUTE COUNT (BEAKER) (test tzhp=520) 0.67 K/ L 0.30-0.82 EOSINOPHILS ABSOLUTE COUNT (BEAKER) (test 0.07 K/ L 0.04-0.54 jnrr=813) BASOPHILS ABSOLUTE COUNT (BEAKER) (test iecc=205) 0.01 K/ L 0.01-0.08 IMMATURE GRANULOCYTES-RELATIVE PERCENT (BEAKER) 0 % 0-1 (test megz=4993) POCT-GLUCOSE [id number] 21:33:00 Test Item Value Reference Range Comments POC-GLUCOSE METER (BEAKER) 322 mg/dL 70-110 Patient on insulin Drip/TESTED (test yfcs=2165) AT [place] [id number] [facility] [address] POCT-GLUCOSE [id number] 16:53:00 Test Item Value Reference Range Comments POC-GLUCOSE METER (BEAKER) 281 mg/dL 70-110 TESTED AT [address] (test pnib=9187) [facility] [address] PERIPHERAL BLOOD SMEAR - PATHOLOGIST [id number] 14:16:00 Test Item Value Reference Range Comments PERIPHERAL SMR REVIEW (BEAKER) Cell counts confirmed. (test tuzh=2839) [id number] (BEAKER) Torri Garrett M.D. (test mafz=7975) (electronic signature) POCT-GLUCOSE [id number] 12:43:00 Test Item Value Reference Range Comments POC-GLUCOSE METER (BEAKER) 341 mg/dL 70-110 Notified ANDRIY INIGUEZ/TESTED AT [facility] (test oibc=0799) [address] [facility] [address] POCT-GLUCOSE [id number] 07:17:00 Test Item Value Reference Range Comments POC-GLUCOSE METER (BEAKER) 247 mg/dL 70-110 TESTED AT [address] (test tkdg=0625) [facility] [address] BASIC METABOLIC [id number] 06:38:00 Test Item Value Reference Range Comments SODIUM (BEAKER) (test 134 meq/L 136-145 ppsc=154) POTASSIUM (BEAKER) (test 4.0 meq/L 3.5-5.1 jith=091) CHLORIDE (BEAKER) (test 101 meq/L 98-107 noqc=228) CO2 (BEAKER) (test 27 meq/L 22-29 ordx=417) BLOOD UREA NITROGEN 23 mg/dL 7-21 (BEAKER) (test zltz=143) CREATININE (BEAKER) (test 0.97 mg/dL 0.57-1.25 ohvg=312) GLUCOSE RANDOM (BEAKER) 237 mg/dL 70-105 (test neef=577) CALCIUM (BEAKER) (test 9.0 mg/dL 8.4-10.2 hley=800) EGFR (BEAKER) (test 75 mL/min/1.73 sq m ESTIMATED GFR IS NOT ntyd=3535) ACCURATE CREATININE CLEARANCE IN PREDICTING GLOMERULAR FILTRATION RATE. ESTIMATED GFR IS NOT APPLICABLE FOR DIALYSIS PATIENTS. PROTHROMBIN [id number] 06:30:00 Test Item Value Reference Range Comments PROTIME (BEAKER) (test ioge=679) 15.0 seconds 11.9-14.2 INR (BEAKER) (test wzqn=910) 1.2 <=5.9 Effective 12/29/2018: PT Reference Range ChangeNew: 11.9-14.2 Previous: 11.7- 14.7RECOMMENDED COUMADIN/WARFARIN INR THERAPY RANGESSTANDARD DOSE: 2.0-3.0 Includes: PROPHYLAXIS for venous thrombosis, systemic embolization; TREATMENT for venous thrombosis and/or pulmonary embolus.HIGH RISK: Target INR is2.5-3.5 for patients wiht mechanical heart valves.CBC W/PLT COUNT & AUTO [id number] 05:22:00 Test Item Value Reference Range Comments WHITE BLOOD CELL COUNT (BEAKER) (test qwbn=918) 7.4 K/ L 3.5-10.5 RED BLOOD CELL COUNT (BEAKER) (test grxw=581) 4.06 M/ L 4.63-6.08 HEMOGLOBIN (BEAKER) (test twpt=304) 12.6 GM/DL 13.7-17.5 HEMATOCRIT (BEAKER) (test pfns=125) 39.5 % 40.1-51.0 MEAN CORPUSCULAR VOLUME (BEAKER) (test gakc=864) 97.3 fL 79.0-92.2 MEAN CORPUSCULAR HEMOGLOBIN (BEAKER) (test 31.0 pg 25.7-32.2 ouyv=884) MEAN CORPUSCULAR HEMOGLOBIN CONC (BEAKER) (test 31.9 GM/DL 32.3-36.5 afhj=302) RED CELL DISTRIBUTION WIDTH (BEAKER) (test 15.2 % 11.6-14.4 dras=692) PLATELET COUNT (BEAKER) (test asbc=324) 101 K/CU MM 150-450 MEAN PLATELET VOLUME (BEAKER) (test doqn=815) 10.9 fL 9.4-12.4 NUCLEATED RED BLOOD CELLS (BEAKER) (test 0 /100 WBC 0-0 yuwp=550) NEUTROPHILS RELATIVE PERCENT (BEAKER) (test 74 % xloe=216) LYMPHOCYTES RELATIVE PERCENT (BEAKER) (test 17 % nleq=088) MONOCYTES RELATIVE PERCENT (BEAKER) (test 8 % deyt=015) EOSINOPHILS RELATIVE PERCENT (BEAKER) (test 1 % zbtd=603) BASOPHILS RELATIVE PERCENT (BEAKER) (test 0 % gfym=851) NEUTROPHILS ABSOLUTE COUNT (BEAKER) (test 5.46 K/ L 1.78-5.38 ugyd=904) LYMPHOCYTES ABSOLUTE COUNT (BEAKER) (test 1.25 K/ L 1.32-3.57 wvms=838) MONOCYTES ABSOLUTE COUNT (BEAKER) (test 0.57 K/ L 0.30-0.82 runx=501) EOSINOPHILS ABSOLUTE COUNT (BEAKER) (test 0.09 K/ L 0.04-0.54 pqse=694) BASOPHILS ABSOLUTE COUNT (BEAKER) (test 0.03 K/ L 0.01-0.08 ujsc=691) IMMATURE GRANULOCYTES-RELATIVE PERCENT (BEAKER) 0 % 0-1 (test fnqj=5588) POCT-GLUCOSE [id number] 21:11:00 Test Item Value Reference Range Comments POC-GLUCOSE METER (BEAKER) 329 mg/dL 70-110 Will Repeat Test/TESTED AT (test ambn=5479) [address] [address] POCT-GLUCOSE [id number] 16:46:00 Test Item Value Reference Range Comments POC-GLUCOSE METER (BEAKER) 280 mg/dL 70-110 TESTED AT [address] (test qwwa=5913) [facility] [address] POCT-GLUCOSE [id number] 12:15:00 Test Item Value Reference Range Comments POC-GLUCOSE METER (BEAKER) 289 mg/dL 70-110 TESTED AT [address] (test bfey=5107) [facility] [address] POCT-GLUCOSE [id number] 08:41:00 Test Item Value Reference Range Comments POC-GLUCOSE METER (BEAKER) 228 mg/dL 70-110 TESTED AT [address] (test abct=3037) [facility] [address] BASIC METABOLIC [id number] 06:29:00 Test Item Value Reference Range Comments SODIUM (BEAKER) (test 138 meq/L 136-145 bure=398) POTASSIUM (BEAKER) (test 4.2 meq/L 3.5-5.1 ormz=408) CHLORIDE (BEAKER) (test 106 meq/L 98-107 oxrz=330) CO2 (BEAKER) (test 29 meq/L 22-29 annl=115) BLOOD UREA NITROGEN 24 mg/dL 7-21 (BEAKER) (test jckd=843) CREATININE (BEAKER) (test 0.90 mg/dL 0.57-1.25 bwrc=603) GLUCOSE RANDOM (BEAKER) 215 mg/dL 70-105 (test duvr=364) CALCIUM (BEAKER) (test 8.9 mg/dL 8.4-10.2 fsjk=703) EGFR (BEAKER) (test 81 mL/min/1.73 sq m ESTIMATED GFR IS NOT pthz=3722) ACCURATE CREATININE CLEARANCE IN PREDICTING GLOMERULAR FILTRATION RATE. ESTIMATED GFR IS NOT APPLICABLE FOR DIALYSIS PATIENTS. PROTHROMBIN [id number] 04:50:00 Test Item Value Reference Range Comments PROTIME (BEAKER) (test wdov=269) 18.1 seconds 11.9-14.2 INR (BEAKER) (test rkhj=144) 1.6 <=5.9 Effective 12/29/2018: PT Reference Range ChangeNew: 11.9-14.2 Previous: 11.7- 14.7RECOMMENDED COUMADIN/WARFARIN INR THERAPY RANGESSTANDARD DOSE: 2.0-3.0 Includes: PROPHYLAXIS for venous thrombosis, systemic embolization; TREATMENT for venous thrombosis and/or pulmonary embolus.HIGH RISK: Target INR is2.5-3.5 for patients wiht mechanical heart valves.CBC W/PLT COUNT & AUTO [id number] 04:37:00 Test Item Value Reference Range Comments WHITE BLOOD CELL COUNT (BEAKER) (test gfvo=673) 6.6 K/ L 3.5-10.5 RED BLOOD CELL COUNT (BEAKER) (test pfkc=907) 3.69 M/ L 4.63-6.08 HEMOGLOBIN (BEAKER) (test qmyr=532) 11.8 GM/DL 13.7-17.5 HEMATOCRIT (BEAKER) (test usiu=812) 36.0 % 40.1-51.0 MEAN CORPUSCULAR VOLUME (BEAKER) (test leee=199) 97.6 fL 79.0-92.2 MEAN CORPUSCULAR HEMOGLOBIN (BEAKER) (test 32.0 pg 25.7-32.2 moie=483) MEAN CORPUSCULAR HEMOGLOBIN CONC (BEAKER) (test 32.8 GM/DL 32.3-36.5 khgk=923) RED CELL DISTRIBUTION WIDTH (BEAKER) (test 15.6 % 11.6-14.4 wvhw=374) PLATELET COUNT (BEAKER) (test ycan=178) 80 K/CU MM 150-450 MEAN PLATELET VOLUME (BEAKER) (test ejqn=599) 10.8 fL 9.4-12.4 NUCLEATED RED BLOOD CELLS (BEAKER) (test 0 /100 WBC 0-0 tqrt=616) NEUTROPHILS RELATIVE PERCENT (BEAKER) (test 72 % mqfc=092) LYMPHOCYTES RELATIVE PERCENT (BEAKER) (test 17 % rver=726) MONOCYTES RELATIVE PERCENT (BEAKER) (test 10 % cftm=392) EOSINOPHILS RELATIVE PERCENT (BEAKER) (test 1 % gskx=415) BASOPHILS RELATIVE PERCENT (BEAKER) (test 0 % abeg=325) NEUTROPHILS ABSOLUTE COUNT (BEAKER) (test 4.68 K/ L 1.78-5.38 bsax=221) LYMPHOCYTES ABSOLUTE COUNT (BEAKER) (test 1.11 K/ L 1.32-3.57 pmwh=144) MONOCYTES ABSOLUTE COUNT (BEAKER) (test hxjw=260) 0.63 K/ L 0.30-0.82 EOSINOPHILS ABSOLUTE COUNT (BEAKER) (test 0.08 K/ L 0.04-0.54 uipc=405) BASOPHILS ABSOLUTE COUNT (BEAKER) (test fkqu=063) 0.02 K/ L 0.01-0.08 IMMATURE GRANULOCYTES-RELATIVE PERCENT (BEAKER) 1 % 0-1 (test owps=1183) POCT-GLUCOSE [id number] 21:38:00 Test Item Value Reference Range Comments POC-GLUCOSE METER (BEAKER) 319 mg/dL 70-110 Will Repeat Test/TESTED AT (test nhrd=2164) [place] [address] POCT-GLUCOSE [id number] 16:43:00 Test Item Value Reference Range Comments POC-GLUCOSE METER (BEAKER) 318 mg/dL 70-110 Notified ANDRIY INIGUEZ/TESTED AT [facility] (test weog=9022) [address] [place], [place] [id number] POCT-GLUCOSE [id number] 11:28:00 Test Item Value Reference Range Comments POC-GLUCOSE METER (BEAKER) 300 mg/dL 70-110 TESTED AT [address] (test mkex=7779) [place] [id number] [place], [id number] 11:21:00CT Urogram as recommended by urology for 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 COMPARISON: None. TECHNIQUE: CT of the Abdomen and Pelvis WITHOUT and WITH intravenous contrast. Exam performed according to CT urogram protocol. Enteric contrast was not used. The exam was performed according to our department dose-optimization protocol, which includes automated exposure control, adjustments of mA and kV according to patient size. Iterative reconstructions are also sometimes employed. FINDINGS:There is a left ureteral stent with the proximal end in the renal pelvis and the distal end in the bladder. There is a 2 mm calycealstone in the left kidney lower pole. Cysts of both kidneys, the largest on the left lower pole exophytic measures 3.3 cm. Largest right kidney cyst posterior aspect partially exophytic measures 4.9 cm.No renal mass. Kidneys enhance symmetrically. No hydronephrosis. No retroperitoneal lymphadenopathy.Transurethral balloon catheter is in the bladder. Bladder minimally distended and no obvious bladderwall abnormality. Prostate gland mildly enlarged. No pelvic [...] evaluated because of stent. Signed: Vinny Roberts MDReport Verified Date/Time: 2018 11:21:53 Reading Location: [address] Consult Reading Room POCT-GLUCOSE [id number] 08:18:00 Test Item Value Reference Range Comments POC-GLUCOSE METER (BEAKER) 210 mg/dL 70-110 TESTED AT [facility] [address] [facility] (test oedo=7364) [facility] [address] CBC W/PLT COUNT & AUTO [id number] 06:33:00 Test Item Value Reference Range Comments WHITE BLOOD CELL COUNT (BEAKER) (test dzcn=618) 7.3 K/ L 3.5-10.5 RED BLOOD CELL COUNT (BEAKER) (test edih=871) 4.06 M/ L 4.63-6.08 HEMOGLOBIN (BEAKER) (test zktk=336) 13.0 GM/DL 13.7-17.5 HEMATOCRIT (BEAKER) (test ruyb=119) 39.4 % 40.1-51.0 MEAN CORPUSCULAR VOLUME (BEAKER) (test sqzm=559) 97.0 fL 79.0-92.2 MEAN CORPUSCULAR HEMOGLOBIN (BEAKER) (test 32.0 pg 25.7-32.2 hgwf=814) MEAN CORPUSCULAR HEMOGLOBIN CONC (BEAKER) (test 33.0 GM/DL 32.3-36.5 dapi=305) RED CELL DISTRIBUTION WIDTH (BEAKER) (test 15.9 % 11.6-14.4 mfym=217) PLATELET COUNT (BEAKER) (test mbtq=144) 90 K/CU MM 150-450 MEAN PLATELET VOLUME (BEAKER) (test oxug=778) 11.1 fL 9.4-12.4 NUCLEATED RED BLOOD CELLS (BEAKER) (test 0 /100 WBC 0-0 ultk=151) NEUTROPHILS RELATIVE PERCENT (BEAKER) (test 69 % tkhc=049) LYMPHOCYTES RELATIVE PERCENT (BEAKER) (test 21 % rldw=735) MONOCYTES RELATIVE PERCENT (BEAKER) (test 9 % rgoj=896) EOSINOPHILS RELATIVE PERCENT (BEAKER) (test 1 % gkgs=623) BASOPHILS RELATIVE PERCENT (BEAKER) (test 0 % ovtf=547) NEUTROPHILS ABSOLUTE COUNT (BEAKER) (test 5.05 K/ L 1.78-5.38 mliu=142) LYMPHOCYTES ABSOLUTE COUNT (BEAKER) (test 1.50 K/ L 1.32-3.57 ecfv=352) MONOCYTES ABSOLUTE COUNT (BEAKER) (test bhxh=252) 0.66 K/ L 0.30-0.82 EOSINOPHILS ABSOLUTE COUNT (BEAKER) (test 0.04 K/ L 0.04-0.54 cqhg=209) BASOPHILS ABSOLUTE COUNT (BEAKER) (test ogas=420) 0.01 K/ L 0.01-0.08 IMMATURE GRANULOCYTES-RELATIVE PERCENT (BEAKER) 0 % 0-1 (test vddm=5416) HEPATIC FUNCTION [id number] 06:19:00 Test Item Value Reference Range Comments TOTAL PROTEIN (BEAKER) (test msca=185) 6.4 gm/dL 6.0-8.3 ALBUMIN (BEAKER) (test hkdl=5898) 3.4 g/dL 3.5-5.0 BILIRUBIN TOTAL (BEAKER) (test hegh=822) 0.7 mg/dL 0.2-1.2 BILIRUBIN DIRECT (BEAKER) (test zzmq=029) 0.3 mg/dL 0.1-0.5 ALKALINE PHOSPHATASE (BEAKER) (test dibo=219) 85 U/L 40-150 AST (SGOT) (BEAKER) (test uayl=773) 29 U/L 5-34 ALT (SGPT) (BEAKER) (test vqzk=461) 17 U/L 6-55 BASIC METABOLIC [id number] 06:19:00 Test Item Value Reference Range Comments SODIUM (BEAKER) (test 139 meq/L 136-145 fnzs=263) POTASSIUM (BEAKER) (test 3.9 meq/L 3.5-5.1 rixu=376) CHLORIDE (BEAKER) (test 105 meq/L 98-107 xvau=533) CO2 (BEAKER) (test 28 meq/L 22-29 ukjq=219) BLOOD UREA NITROGEN 21 mg/dL 7-21 (BEAKER) (test wbvd=085) CREATININE (BEAKER) (test 0.90 mg/dL 0.57-1.25 uixp=675) GLUCOSE RANDOM (BEAKER) 214 mg/dL 70-105 (test hxkb=448) CALCIUM (BEAKER) (test 9.1 mg/dL 8.4-10.2 olgc=192) EGFR (BEAKER) (test 81 mL/min/1.73 sq m ESTIMATED GFR IS NOT klzl=9519) ACCURATE CREATININE CLEARANCE IN PREDICTING GLOMERULAR FILTRATION RATE. ESTIMATED GFR IS NOT APPLICABLE FOR DIALYSIS PATIENTS. PROTHROMBIN [id number] 05:10:00 Test Item Value Reference Range Comments PROTIME (BEAKER) (test opcg=502) 23.2 seconds 11.9-14.2 INR (BEAKER) (test yznc=055) 2.2 <=5.9 Effective 12/29/2018: PT Reference Range ChangeNew: 11.9-14.2 Previous: 11.7- 14.7RECOMMENDED COUMADIN/WARFARIN INR THERAPY RANGESSTANDARD DOSE: 2.0-3.0 Includes: PROPHYLAXIS for venous thrombosis, systemic embolization; TREATMENT for venous thrombosis and/or pulmonary embolus.HIGH RISK: Target INR is2.5-3.5 for patients wiht mechanical heart valves.POCT-GLUCOSE [id number] 21:25:00 Test Item Value Reference Range Comments POC-GLUCOSE METER (BEAKER) 259 mg/dL 70-110 TESTED AT [address] (test xxmc=8021) [place] [address] TROPONIN [id number] 18:35:00 Test Item Value Reference Range Comments TROPONIN I (BEAKER) (test cquv=252) 0.03 ng/mL 0.00-0.03 Troponin I (TnI) levels must be interpreted in the context of the presenting symptoms and the clinical findings. Elevated TnI levels indicate myocardial damage, but are not specific for ischemic heart disease. Elevated TnI levels are seen in patients with other cardiac conditions (including myocarditis and congestive heart failure), and slight TnI elevations occur in patients with other conditions, including sepsis, renal failure, acidosis, acute neurological disease, and persistent tachyarrhythmia.POCT-GLUCOSE [id number] 16:35:00 Test Item Value Reference Range Comments POC-GLUCOSE METER (BEAKER) 267 mg/dL 70-110 TESTED AT [address] (test fgzn=7509) [place] [address] TROPONIN [id number] 13:03:00 Test Item Value Reference Range Comments TROPONIN I (BEAKER) (test zhzk=238) 0.03 ng/mL 0.00-0.03 Troponin I (TnI) levels must be interpreted in the context of the presenting symptoms and the clinical findings. Elevated TnI levels indicate myocardial damage, but are not specific for ischemic heart disease. Elevated TnI levels are seen in patients with other cardiac conditions (including myocarditis and congestive heart failure), and slight TnI elevations occur in patients with other conditions, including sepsis, renal failure, acidosis, acute neurological disease, and persistent tachyarrhythmia.HEMOGLOBIN [id number] 08:14:00 Test Item Value Reference Range Comments HEMOGLOBIN A1C (BEAKER) (test cywg=833) 6.3 % 4.3-6.1 POCT-GLUCOSE [id number] 07:53:00 Test Item Value Reference Range Comments POC-GLUCOSE METER (BEAKER) 106 mg/dL 70-110 TESTED AT [address] (test ligz=9099) [facility] [address] TROPONIN [id number] 07:08:00 Test Item Value Reference Range Comments TROPONIN I (BEAKER) (test jtyo=986) 0.04 ng/mL 0.00-0.03 Troponin I (TnI) levels must be interpreted in the context of the presenting symptoms and the clinical findings. Elevated TnI levels indicate myocardial damage, but are not specific for ischemic heart disease. Elevated TnI levels are seen in patients with other cardiac conditions (including myocarditis and congestive heart failure), and slight TnI elevations occur in patients with other conditions, including sepsis, renal failure, acidosis, acute neurological disease, and persistent tachyarrhythmia.TROPONIN [id number] 06:57:00 Test Item Value Reference Range Comments TROPONIN I (BEAKER) (test hcyo=966) 0.04 ng/mL 0.00-0.03 Troponin I (TnI) levels must be interpreted in the context of the presenting symptoms and the clinical findings. Elevated TnI levels indicate myocardial damage, but are not specific for ischemic heart disease. Elevated TnI levels are seen in patients with other cardiac conditions (including myocarditis and congestive heart failure), and slight TnI elevations occur in patients with other conditions, including sepsis, renal failure, acidosis, acute neurological disease, and persistent tachyarrhythmia.[id number] 06:50:00 Test Item Value Reference Range Comments MAGNESIUM (BEAKER) (test onpf=122) 1.9 mg/dL 1.6-2.6 B-TYPE NATRIURETIC FACTOR (BNP)2019-03-04 06:39:00 Test Item Value Reference Range Comments B-TYPE NATRIURETIC PEPTIDE (BEAKER) (test 893 pg/mL 0-100 dgmd=788) POCT-GLUCOSE [id number] 06:22:00 Test Item Value Reference Range Comments POC-GLUCOSE METER (BEAKER) 98 mg/dL 70-110 TESTED AT [facility] [address] [facility] (test ijgd=9862) [facility] [address] HEPATIC FUNCTION [id number] 06:07:00 Test Item Value Reference Range Comments TOTAL PROTEIN (BEAKER) (test sxqr=461) 6.7 gm/dL 6.0-8.3 ALBUMIN (BEAKER) (test qejb=1038) 3.4 g/dL 3.5-5.0 BILIRUBIN TOTAL (BEAKER) (test bory=216) 0.5 mg/dL 0.2-1.2 BILIRUBIN DIRECT (BEAKER) (test npst=420) 0.2 mg/dL 0.1-0.5 ALKALINE PHOSPHATASE (BEAKER) (test zsvz=483) 92 U/L 40-150 AST (SGOT) (BEAKER) (test deyp=899) 25 U/L 5-34 ALT (SGPT) (BEAKER) (test ysbt=215) 15 U/L 6-55 BASIC METABOLIC [id number] 06:07:00 Test Item Value Reference Range Comments SODIUM (BEAKER) (test 139 meq/L 136-145 zpsv=616) POTASSIUM (BEAKER) (test 4.0 meq/L 3.5-5.1 zrtg=086) CHLORIDE (BEAKER) (test 106 meq/L 98-107 fdqg=232) CO2 (BEAKER) (test 24 meq/L 22-29 ikix=772) BLOOD UREA NITROGEN 18 mg/dL 7-21 (BEAKER) (test qpqo=840) CREATININE (BEAKER) (test 0.84 mg/dL 0.57-1.25 qotb=766) GLUCOSE RANDOM (BEAKER) 111 mg/dL 70-105 (test mezz=657) CALCIUM (BEAKER) (test 9.1 mg/dL 8.4-10.2 rygt=417) EGFR (BEAKER) (test 88 mL/min/1.73 sq m ESTIMATED GFR IS NOT rvsh=4233) ACCURATE CREATININE CLEARANCE IN PREDICTING GLOMERULAR FILTRATION RATE. ESTIMATED GFR IS NOT APPLICABLE FOR DIALYSIS PATIENTS. PROTHROMBIN [id number] 05:30:00 Test Item Value Reference Range Comments PROTIME (BEAKER) (test ouwo=447) 24.5 seconds 11.9-14.2 INR (BEAKER) (test ymry=142) 2.4 <=5.9 Effective 12/29/2018: PT Reference Range ChangeNew: 11.9-14.2 Previous: 11.7- 14.7RECOMMENDED COUMADIN/WARFARIN INR THERAPY RANGESSTANDARD DOSE: 2.0-3.0 Includes: PROPHYLAXIS for venous thrombosis, systemic embolization; TREATMENT for venous thrombosis and/or pulmonary embolus.HIGH RISK: Target INR is2.5-3.5 for patients wiht mechanical heart valves.CBC W/PLT COUNT & AUTO [id number] 05:25:00 Test Item Value Reference Range Comments WHITE BLOOD CELL COUNT (BEAKER) (test uwco=233) 8.6 K/ L 3.5-10.5 RED BLOOD CELL COUNT (BEAKER) (test crgp=028) 4.46 M/ L 4.63-6.08 HEMOGLOBIN (BEAKER) (test wjow=923) 14.0 GM/DL 13.7-17.5 HEMATOCRIT (BEAKER) (test fyvi=121) 42.9 % 40.1-51.0 MEAN CORPUSCULAR VOLUME (BEAKER) (test tjwi=662) 96.2 fL 79.0-92.2 MEAN CORPUSCULAR HEMOGLOBIN (BEAKER) (test 31.4 pg 25.7-32.2 mqxt=231) MEAN CORPUSCULAR HEMOGLOBIN CONC (BEAKER) (test 32.6 GM/DL 32.3-36.5 xjno=160) RED CELL DISTRIBUTION WIDTH (BEAKER) (test 15.3 % 11.6-14.4 dxpu=029) PLATELET COUNT (BEAKER) (test zhiq=943) 103 K/CU MM 150-450 MEAN PLATELET VOLUME (BEAKER) (test vxos=666) 11.0 fL 9.4-12.4 NUCLEATED RED BLOOD CELLS (BEAKER) (test 0 /100 WBC 0-0 mdqe=666) NEUTROPHILS RELATIVE PERCENT (BEAKER) (test 73 % qxda=969) LYMPHOCYTES RELATIVE PERCENT (BEAKER) (test 18 % abuz=656) MONOCYTES RELATIVE PERCENT (BEAKER) (test 9 % wtto=160) EOSINOPHILS RELATIVE PERCENT (BEAKER) (test 0 % thar=220) BASOPHILS RELATIVE PERCENT (BEAKER) (test 0 % zfcr=253) NEUTROPHILS ABSOLUTE COUNT (BEAKER) (test 6.27 K/ L 1.78-5.38 yczc=677) LYMPHOCYTES ABSOLUTE COUNT (BEAKER) (test 1.54 K/ L 1.32-3.57 yekm=863) MONOCYTES ABSOLUTE COUNT (BEAKER) (test 0.74 K/ L 0.30-0.82 icpc=364) EOSINOPHILS ABSOLUTE COUNT (BEAKER) (test 0.03 K/ L 0.04-0.54 dnry=435) BASOPHILS ABSOLUTE COUNT (BEAKER) (test 0.02 K/ L 0.01-0.08 agdp=015) IMMATURE GRANULOCYTES-RELATIVE PERCENT (BEAKER) 0 % 0-1 (test ivkc=5420) [id number] 15:22:00Medical Cytology Report Case: [id number] Authorizing Provider: Kam Mayer MD Collected: 12/07/2017 1351 Ordering Location: [facility] PERIOPERATIVE Received: 12/08/2017 0834 SERVICES Pathologist: Ion Bosch MD Specimen: Renal, Right, right renal pelvis RIGHT RENAL PELVIS WASHING (CYTOSPINS): - NEGATIVE FOR HIGH GRADE Signing Pathologist Direct Phone Line: [phone] signed by Ion Bosch MD on 12/09/2017 at 3:22 PMPlease also see surgical pathology report [id number] and cytopathology [id number] and 1429. 86255Rhirjcow of kidney; renal massRIGHT RENAL PELVIS WASHINGPrepared 4 cytospins from 2.5 ml colorless fluidCollected: [id number]: [id number]. [facility], Department of Pathology, [address] [place] [address] , [facility], [address] [place] [address], [facility], [facility] of [facility], [address] [place] [address] , [id number] 15:21:00Medical Cytology Report Case: [id number] Authorizing Provider: Kam Mayer MD Collected: 12/07/2017 1355 Ordering Location: [facility] PERIOPERATIVE Received: 0830 SERVICES Pathologist: Ion [place] MD Specimen: Renal, Left, left renal pelvis LEFT RENAL PELVIS WASHING (CYTOSPINS): - POSITIVE FOR HIGH GRADE Signing Pathologist Direct Phone Line: [phone] signed by Ion [place]ch MD on 12/09/2017 at 3:21 PMPlease also see surgical pathology report [id number] and cytopathology [id number] and 1429. 17443Uzylcuir of kidney; renal massLEFT RENAL PELVIS WASHING Prepared 4 cytospins from 5 ml blood-tinged fluidCollected: [id number]: [id number] [facility], [facility] of [facility]ology, [address] [place] [address], [facility], Department of [facility]ology, [address] [place] [address] , [facility], Department of [facility]ology, [address] [place] [address], [id number] 15:08 :00Medical Cytology Report Case: [id number] Authorizing Provider: Kam Mayer MD Collected: 12/07/2017 1350 Ordering Location: [facility] PERIOPERATIVE Received: 12/08/2017 0836 SERVICES Pathologist: Ion [place] MD Specimen: Urine, Bladder Wash BLADDER WASHING (CYTOSPINS): - NO MALIGNANT CELLS IDENTIFIED Signing Pathologist Direct Phone Line: [phone] signed by Ion [place]ch MD on 12/09/2017 at 3:08 PMPlease also see surgical pathology report [id number] and cytopathology [id number] and 1428. 31556Jugyflxk of kidney; renal massBLADDER WASHING4 cytospins prepared from 120 ml blood-tinged fluidCollected: [id number]: [id number] [facility], Department of Pathology, [address] [place] [address], [facility], Department of Pathology, [address] [place] [address], [facility], Department of Pathology, [address] [place] [address], DTHTUE [id number] 15:21:00Surgical Pathology Report Case: [id number] Authorizing Provider: Kam Mayer MD Collected: 12/07/2017 1356 Ordering Location: [facility] PERIOPERATIVE Received: 12/07/2017 1459 SERVICES Pathologist: Eyal Ruelas MD Specimen: Renal Pelvis, LEFT RENAL PELVIS TUMOR BIOPSY KIDNEY PELVIS, LEFT, 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 BoschAnsndvy48045Tptqsznc of kidney, renal mass Left renal pelvis tumor biopsyReceived in saline labeled "left renal pelvis tumor biopsy" are five fragments measuring 1.1 x 1.0 x 0.1 cm in aggregate. The specimen is entirely submitted in A1. DB/ew Microscopic examination is performed and the findings are incorporated in the diagnostic line.BASIC METABOLIC [id number] 23:01:00 Test Item Value Reference Range Comments SODIUM (BEAKER) (test 136 meq/L 136-145 tboc=000) POTASSIUM (BEAKER) (test 4.2 meq/L 3.5-5.1 heex=755) CHLORIDE (BEAKER) (test 103 meq/L 98-107 mzpn=560) CO2 (BEAKER) (test 23 meq/L 22-29 ngyt=865) BLOOD UREA NITROGEN 14 mg/dL 7-21 (BEAKER) (test evsj=422) CREATININE (BEAKER) (test 1.14 mg/dL 0.57-1.25 vfnm=650) GLUCOSE RANDOM (BEAKER) 337 mg/dL 70-105 (test ftwd=021) CALCIUM (BEAKER) (test 9.3 mg/dL 8.4-10.2 urro=445) EGFR (BEAKER) (test 62 mL/min/1.73 sq m ESTIMATED GFR IS NOT zpgp=6748) ACCURATE CREATININE CLEARANCE IN PREDICTING GLOMERULAR FILTRATION RATE. ESTIMATED GFR IS NOT APPLICABLE FOR DIALYSIS PATIENTS. PROTHROMBIN TIME/[id number] 22:58:00 Test Item Value Reference Range Comments PROTIME (BEAKER) (test bjpq=938) 14.9 seconds 11.7-14.7 INR (BEAKER) (test tnrb=597) 1.2 <=5.9 RECOMMENDED COUMADIN/WARFARIN INR THERAPY RANGESSTANDARD DOSE: 2.0 - 3.0 Includes: PROPHYLAXIS forvenous thrombosis, systemic embolization; TREATMENT for venous thrombosis and/or pulmonary embolus.HIGH RISK: Target INR is 2.5-3.5 for patients with mechanical heart valves.CBC W/PLT COUNT & AUTO [id number] 22:47:00 Test Item Value Reference Range Comments WHITE BLOOD CELL COUNT (BEAKER) (test vbtt=644) 11.3 K/ L 3.5-10.5 RED BLOOD CELL COUNT (BEAKER) (test inik=747) 4.63 M/ L 4.63-6.08 HEMOGLOBIN (BEAKER) (test bikj=942) 13.4 GM/DL 13.7-17.5 HEMATOCRIT (BEAKER) (test erhw=792) 40.8 % 40.1-51.0 MEAN CORPUSCULAR VOLUME (BEAKER) (test kmia=553) 88.1 fL 79.0-92.2 MEAN CORPUSCULAR HEMOGLOBIN (BEAKER) (test 28.9 pg 25.7-32.2 cgul=718) MEAN CORPUSCULAR HEMOGLOBIN CONC (BEAKER) (test 32.8 GM/DL 32.3-36.5 alzm=560) RED CELL DISTRIBUTION WIDTH (BEAKER) (test 14.6 % 11.6-14.4 azys=063) PLATELET COUNT (BEAKER) (test hwvj=206) 118 K/CU MM 150-450 MEAN PLATELET VOLUME (BEAKER) (test kdqx=841) 11.5 fL 9.4-12.4 NUCLEATED RED BLOOD CELLS (BEAKER) (test 0 /100 WBC 0-0 ygpo=090) NEUTROPHILS RELATIVE PERCENT (BEAKER) (test 85 % jsbr=040) LYMPHOCYTES RELATIVE PERCENT (BEAKER) (test 8 % nvhx=289) MONOCYTES RELATIVE PERCENT (BEAKER) (test 6 % kauh=514) EOSINOPHILS RELATIVE PERCENT (BEAKER) (test 0 % oobl=744) BASOPHILS RELATIVE PERCENT (BEAKER) (test 0 % ntrd=313) NEUTROPHILS ABSOLUTE COUNT (BEAKER) (test 9.60 K/ L 1.78-5.38 pfbe=567) LYMPHOCYTES ABSOLUTE COUNT (BEAKER) (test 0.87 K/ L 1.32-3.57 vugz=098) MONOCYTES ABSOLUTE COUNT (BEAKER) (test 0.71 K/ L 0.30-0.82 mvrb=643) EOSINOPHILS ABSOLUTE COUNT (BEAKER) (test 0.04 K/ L 0.04-0.54 jwud=849) BASOPHILS ABSOLUTE COUNT (BEAKER) (test 0.02 K/ L 0.01-0.08 emzj=345) IMMATURE GRANULOCYTES-RELATIVE PERCENT (BEAKER) 0 % 0-1 (test qpyu=8482) FL, QUALITY CONTROL TECH IN OR/30 MINUTE [id number] 15:05:00Reason for exam:-> BILATERAL RETROGRADE PYELOGRAMFINAL REPORT Fluoroscopy 47 views intraoperative 12/07/2017 3:04 PM CLINICAL HISTORY: Instrument localization COMPARISON: None available IMPRESSION: Please correlate imaging reportfindings with the procedure note prepared by Dr. Mayer, as an intra- procedure imaging consultation was not requested. Reported fluoroscopy time: 1.3 minutes. Signed: Ovi Kulkarni Verified Date/Time: 12/07/2017 15 :05:06 Reading Location: [address] Consult Reading Room POCT-GLUCOSE [id number] 11:18:00 Test Item Value Reference Range Comments POC-GLUCOSE METER (BEAKER) 164 mg/dL 70-110 TESTED AT [facility] [address] [facility] (test wywy=5148) [facility] [address] URINE [id number] 10:11:00 Test Item Value Reference Range Comments CULTURE (BEAKER) (test fkot=6551) See comment <10,000 col/mL Gram Negative RodURINALYSIS W/ [id number] 14:17:00 Test Item Value Reference Range Comments COLOR (BEAKER) (test wlbk=039) Red This is a corrected result. Previous result was Light Yellow on 11/17/2017 at 1248 CDT CLARITY (BEAKER) (test Turbid This is a corrected result. hpdy=851) Previous result was Clear on 11/17/2017 at 1248 CDT SPECIFIC GRAVITY UA (BEAKER) 1.007 1.001-1.035 (test jvro=316) PH UA (BEAKER) (test ytdp=072) 6.5 5.0-8.0 PROTEIN UA (BEAKER) (test 10 mg/dL Negative irzw=003) GLUCOSE UA (BEAKER) (test 50 mg/dL Negative onnj=298) KETONES UA (BEAKER) (test Negative Negative diuo=290) BILIRUBIN UA (BEAKER) (test Negative Negative vlrc=308) BLOOD UA (BEAKER) (test Moderate Negative ufsn=557) NITRITE UA (BEAKER) (test Negative Negative btwt=431) LEUKOCYTE ESTERASE UA (BEAKER) Negative Negative (test hscr=071) UROBILINOGEN UA (BEAKER) (test 0.2 mg/dL 0.2-1.0 ocar=533) RBC UA (BEAKER) (test wxab=278) > /HPF WBC UA (BEAKER) (test drhc=168) 142 /HPF SQUAMOUS EPITHELIAL (BEAKER) 1 /HPF (test reeq=682) SOURCE(BEAKER) (test aqss=7942) BASIC METABOLIC [id number] 12:32:00 Test Item Value Reference Range Comments SODIUM (BEAKER) (test 140 meq/L 136-145 qlah=591) POTASSIUM (BEAKER) (test 3.9 meq/L 3.5-5.1 erag=233) CHLORIDE (BEAKER) (test 103 meq/L 98-107 vvlu=796) CO2 (BEAKER) (test 32 meq/L 22-29 fniu=158) BLOOD UREA NITROGEN 15 mg/dL 7-21 (BEAKER) (test ciot=618) CREATININE (BEAKER) (test 0.94 mg/dL 0.57-1.25 dtis=203) GLUCOSE RANDOM (BEAKER) 189 mg/dL 70-105 (test zvom=440) CALCIUM (BEAKER) (test 9.5 mg/dL 8.4-10.2 ctut=653) EGFR (BEAKER) (test 78 mL/min/1.73 sq m ESTIMATED GFR IS NOT vpke=1765) ACCURATE CREATININE CLEARANCE IN PREDICTING GLOMERULAR FILTRATION RATE. ESTIMATED GFR IS NOT APPLICABLE FOR DIALYSIS PATIENTS. RAD, CHEST, 2 [id number] 12:24:00Reason for exam:->sxShould this be performed at the bedside?->NoFINAL REPORT Chest, PA and lateral. Three images. History: Preoperative. Comparison: None available. Discussion: The cardiomediastinal silhouette and pulmonary vasculature arewithin normal limits. The lungs are clear without evidence of consolidation or effusion. There are no acute osseous abnormalities. The soft tissues are unremarkable. IMPRESSION: No acute cardiopulmonary abnormality. Signed: Tejas Rivera MDReport Verified Date/Time: 11/17/2017 12:24:01 Reading Location: [address] Radiology Reading Room CBC W/PLT COUNT & AUTO [id number] 12:14:00 Test Item Value Reference Range Comments WHITE BLOOD CELL COUNT (BEAKER) (test gler=561) 7.3 K/ L 3.5-10.5 RED BLOOD CELL COUNT (BEAKER) (test ztdx=979) 4.49 M/ L 4.63-6.08 HEMOGLOBIN (BEAKER) (test gxvk=189) 13.1 GM/DL 13.7-17.5 HEMATOCRIT (BEAKER) (test jacg=319) 40.1 % 40.1-51.0 MEAN CORPUSCULAR VOLUME (BEAKER) (test mrqq=355) 89.3 fL 79.0-92.2 MEAN CORPUSCULAR HEMOGLOBIN (BEAKER) (test 29.2 pg 25.7-32.2 urey=908) MEAN CORPUSCULAR HEMOGLOBIN CONC (BEAKER) (test 32.7 GM/DL 32.3-36.5 ghiu=057) RED CELL DISTRIBUTION WIDTH (BEAKER) (test 14.3 % 11.6-14.4 frgc=596) PLATELET COUNT (BEAKER) (test ceqe=538) 140 K/CU MM 150-450 MEAN PLATELET VOLUME (BEAKER) (test ruvl=682) 12.1 fL 9.4-12.4 NUCLEATED RED BLOOD CELLS (BEAKER) (test 0 /100 WBC 0-0 uwps=474) NEUTROPHILS RELATIVE PERCENT (BEAKER) (test 71 % zpvn=244) LYMPHOCYTES RELATIVE PERCENT (BEAKER) (test 20 % ygdn=742) MONOCYTES RELATIVE PERCENT (BEAKER) (test 7 % eqno=371) EOSINOPHILS RELATIVE PERCENT (BEAKER) (test 2 % ctch=104) BASOPHILS RELATIVE PERCENT (BEAKER) (test 0 % xgok=441) NEUTROPHILS ABSOLUTE COUNT (BEAKER) (test 5.16 K/ L 1.78-5.38 ccjd=823) LYMPHOCYTES ABSOLUTE COUNT (BEAKER) (test 1.47 K/ L 1.32-3.57 vxbs=799) MONOCYTES ABSOLUTE COUNT (BEAKER) (test 0.51 K/ L 0.30-0.82 wlnd=545) EOSINOPHILS ABSOLUTE COUNT (BEAKER) (test 0.11 K/ L 0.04-0.54 tonc=550) BASOPHILS ABSOLUTE COUNT (BEAKER) (test 0.02 K/ L 0.01-0.08 wwnx=534) IMMATURE GRANULOCYTES-RELATIVE PERCENT (BEAKER) 0 % 0-1 (test vyny=7461)
--- OUTSIDE RECORDS SUMMARY | 2019-04-14 12:11 | XMS REPORT | Summary of Care ---
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) Amanuel Ritter MD [place] [facility] Procedures CYSTOSCOPY [address] 10[address], [address] [place] [phone] Reason for Visit Reason Comments Bladder Cancer Consultation (Routine) Status Reason Specialty Diagnoses / Referred By Referred To Procedures Contact Contact Authorization Not Urology Diagnoses Gross hematuria [place], [place] [facility] Needed Procedures [place] OFFICE OUTPATIENT NEW 30 MINUTES [place] OFFICE OUTPATIENT VISIT 15 MINUTES BCM REFERRAL TO UROLOGY MD [place] [address] [place], [place] [address], [address] [address] Phone: [place], [place] [phone] Fax: Encounter Details Date Type Department Care Team Description 04/14/2019 Office Visit [facility] Amanuel Ritter MD Bladder Cancer Medicine Urology [address], [place] [address] [place] [address] Allergies No Known Allergiesdocumented as of this encounter (statuses as of 04/14/2019) Medications Medication Sig Dispensed Refills Start Date End Date Status metoprolol (TOPROL-XL) 0 09/06/2017 Active 200 MG XL tablet metformin 0 09/06/2017 Active (GLUCOPHAGE-XR) 500 MG XR tablet sertraline (ZOLOFT) 100 0 09/06/2017 Active MG tablet warfarin (COUMADIN) 5 MG 0 10/04/2017 Active tablet nortriptyline (PAMELOR) 0 09/06/2017 Active 25 MG capsule lisinopril (PRINIVIL, 0 09/11/2017 Active ZESTRIL) 40 MG tablet Insulin NPH Human, Inject into the 0 Active Isophane, (NOVOLIN N SC) skin. quetiapine (SEROQUEL) Take 100 mg by 0 Active 100 MG tablet mouth two times daily. Tamsulosin HCl 0.4 MG Take 1 Tab by 90 Cap 2 09/06/2018 Active CAPS mouth at bedtime. finasteride (PROSCAR) 5 Take 1 Tab by 90 Tab 3 09/06/2018 Active MG tablet mouth daily. 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 documented as of this encounter Last Filed Vital Signs Vital Sign Reading Time Taken Comments Blood Pressure 120/50 04/14/2019 10:23 AM CDT Pulse 71 04/14/2019 10:23 AM CDT Temperature 36.8 C (98.2 F) 04/14/2019 10:23 AM CDT Respiratory Rate - - Oxygen Saturation - - Inhaled Oxygen Concentration - - Weight - - Height - - Body Mass Index - - documented in this encounter Progress Notes Amanuel Ritter MD - 04/14/2019 10:[address] Moreno Taylor Verito is a 79 y.o. 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 FD noted on RGP at time of TURBT Size of bladder tumors 4cm No intervention since surgery Pt in assisted and says his medical condition is deteriorating Says he is getting (or got) chemo for renal pelvis cancer No Known Allergies Current Outpatient Medications: finasteride (PROSCAR) 5 MG tablet, Take 1 Tab by mouth daily., Disp: 90 Tab , Rfl: 3 Insulin NPH Human, Isophane, (NOVOLIN N SC), Inject into the skin., Disp: , Rfl: lisinopril (PRINIVIL, ZESTRIL) 40 MG tablet, , Disp: , Rfl: metformin (GLUCOPHAGE-XR) 500 MG XR tablet, , Disp: , Rfl: metoprolol (TOPROL-XL) 200 MG XL tablet, , Disp: , Rfl: nortriptyline (PAMELOR) 25 MG capsule, , Disp: , Rfl: quetiapine (SEROQUEL) 100 MG tablet, Take 100 mg by mouth two times daily. , Disp: , Rfl: sertraline (ZOLOFT) 100 MG tablet, , Disp: , Rfl: Tamsulosin HCl 0.4 MG CAPS, Take 1 Tab by mouth at bedtime., Disp: 90 Cap, Rfl: 2 warfarin (COUMADIN) 5 MG tablet, , Disp: , Rfl: Past Medical History: Diagnosis Date Bladder cancer (HCCode) Diabetes (HCCode) H/O heart artery stent Heart attack (HCCode) High cholesterol Hypertension Stroke (HCCode) 1998 Stroke (HCCode) 2007 No past medical history pertinent negatives. Past Surgical History: Procedure Laterality Date HX CORONARY STENTING PE: BP 120/50 (BP Location: right arm, Patient Position: Sitting, Cuff Size: regular ) | Pulse 71 | Temp 98.2 F (36.8 C) (Oral) Pt in gurney and not able to communicate Imp: Intermediate risk bladder cancer and high risk left renal pelvis cancer Disc: Not appropriate to treat pt in present condition and says she could not bring him back and forth for intravesical chemot. She states Dr. Garcia unable to manage I strongly advised her to enlist help of PCP and get pt to a better level of care. When he is betterthen return for office cysto Plan: ROV for office cysto when pt in better medical condition documented in this encounter Plan of Treatment Name Type Priority Associated Diagnoses Order Schedule CYSTOSCOPY Procedure Routine Malignant neoplasm of 1 Occurrences starting overlapping sites of 04/14/2019 until bladder (HCCode) 04/14/2020 Health Maintenance Due Date Last Done Comments MEDICARE AWV 1940 TETANUS SHOT (ADULT) 1954 BMI FOLLOW UP PLAN 1957 FALL SCREEN 2004 PNEUMOVAX >=65 (PPSV23) 2004 PREVNAR >=65 (PCV13) 2004 FLU VACCINE > 6 MONTHS 03/03/2019 documented as of this encounter Results Not on filedocumented in this encounter Visit Diagnoses Diagnosis 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
[2019-04-14] MEDS ORDERED: NA CHLORIDE 0.9% 1,000 ML ONE ×2 (12:23→13:54)
[2019-04-14] MEDS ORDERED: PIPER/TAZO/NS 3.375gm 3.375 GM/100 ML BAG ONE (12:39)
--- NOTE | 2019-04-14 13:00 | RAD REPORT ---
EXAM DESCRIPTION: CT - Stone Protocol - 04/14/2019 12:49 pm CLINICAL HISTORY: Flank pain. ABD PAIN COMPARISON: Abdomen Pelvis W Contrast dated 02/16/2019; Abdomen Pelvis W Contrast dated 11/09/2018 TECHNIQUE: Axial images were obtained without oral or IV contrast. Lack of contrast limits solid org an and vascular assessment. The [id number] spans the entirety of the system partially obscuring uppermost abdomen and lung bases. Coronal reformatted images were obtained and reviewed. All CT scans are performed using dose optimization technique as appropriate and may include automated exposure control or mA/KV adjustment according to patient size. FINDINGS: Small right pleural effusion is noted. Imaged portions of the liver and spleen show no suspicious findings on non-contrast imaging.Cholelith iasis. The pancreas and adrenal glands are normal. No pathologic lymphadenopathy in the abdomen or pe lvis. Left double-J stent is in place with proximal and distal aspects in expected location. Soft tissue wi thin the calices of the left kidney again seen. Small calculus is present in the inferior anterior le ft renal calyx. Multiple bilateral renal cystic lesions are again also noted without significant curry ge. Urinary bladder is decompressed by means of a Walker catheter. No bowel obstruction, free air, free fluid or abscess. Atherosclerosis is noted. [id number] degenerative changes are present lower lumbar spine. IMPRESSION: No new/ acute finding is demonstrated. Cholelithiasis. Left double-J stent is in place with increased attenuation within the left renal calices again seen, unchanged. Small right pleural effusion.
[2019-04-14 13:12] LABS: Absolute Lymphocytes (CBC) 1.3 K/uL (0.7-4.9); Basophils % 0.1 % (0-1.3); Hematocrit 35.6 % (39.6-49.0); Lymphocytes % 7.1 % (15.3-44.8); RBC Red Blood Cell Count 3.86 M/uL (4.33-5.43)
[2019-04-14 13:26] LABS: Albumin 2.5 g/dL (3.4-5.0); Bilirubin Direct 0.4 mg/dL (0-0.2); Bilirubin Total 0.9 mg/dL (0.2-1.0); Potassium 4.7 mmol/L (3.5-5.1); Protein, Total 6.5 g/dL (6.4-8.2)
--- NOTE | 2019-04-14 14:06 | ER ---
Nurse's Notes [facility] Name: Garth Sellers Age: 79 yrs Sex: Male : 1940 Arrival Date: 04/14/2019 Time: 12:09 Bed 23 Private MD: Diagnosis: Cystitis, unspecified without hematuria;Sepsis due to other Gram-negative organisms;Non-ST elevation (NSTEMI) myocardial infarction;Tachycardia, unspecified Presentation: 04/14 12:15 Presenting complaint: EMS states: patient complains of low back pain, he went to [facility] [place] appointment today in [place] and was told to be sent to ED because he is not in good shape. He has History of Left Kidney cancer and bladder problem and was on chemotherapy but completed the course last July. He is from [facility] in [place]. Transition of care: patient was received from another setting of care (long-term care facility), [facility]. Onset of symptoms was April 14, 2019. Risk Assessment: Do you want to hurt yourself or someone else? Patient reports no desire to harm self or others. Initial Sepsis Screen: Does the patient meet any 2 criteria? No. Patient's initial sepsis screen is negative. Does the patient have a suspected source of infection? No. Patient's initial sepsis screen is negative. Care prior to arrival: None. 12:15 Method Of Arrival: EMS: [facility] 12:15 Acuity: KEVEN 3 [facility] Historical: - Allergies: 12:20 No Known Allergies; [facility] - Home Meds: 13:13 Crestor 10 mg Oral tab 1 tab once daily [Active]; finasteride 5 mg Oral tab 1 tab mg2 [Active]; Glucophage 500 mg Oral tab [Active]; Lasix 40 mg Oral tab [Active]; nortriptyline 25 mg Oral cap [Active]; Novolin N Sub-Q [Active]; Novolin R Sub-Q [Active]; Seroquel 100 mg Oral tab [Active]; tamsulosin 0.4 mg Oral cp24 1 cap once daily [Active]; Toprol XL 200 mg Oral Tb24 [Active]; Zestril 40 mg Oral tab [Active]; Zoloft 100 mg Oral tab 1 tab once daily [Active]; - PMHx: 12:20 CAD; Cancer; Kidney; CHF; CVA; Diabetes - IDDM; High Cholesterol; Hypertension; mg2 Prostate enlargement; 16:52 Myocardial infarction; mg2 - PSHx: 16:52 Heart stents; mg2 - Immunization history:: Flu vaccine is up to date. - Social history:: Smoking status: Patient/guardian denies using tobacco, Patient/guardian denies using alcohol, street drugs, IV drugs, Patient/guardian denies using The patient lives alone, in a detention. - Ebola Screening: : No symptoms or risks identified at this time. - Family history:: not pertinent. - Hospitalizations: : No recent hospitalization is reported. Screenin:07 Abuse screen: Denies threats or abuse. Denies injuries from another. Nutritional mg2 screening: No deficits noted. Tuberculosis screening: No symptoms or risk factors identified. Fall Risk Secondary diagnosis (15 points) CVA, IV access (20 points). Assessment: 13:00 Reassessment: Spoke with Luiza, staff member from [facility] who reports ss that patient was supposed to go to follow up appointment in [place] after having TURP, but states that staff in [place] would not see patient because he was on a stretcher. Luiza states that patient just needed to have Walker changed. 13:13 General: Appears in no apparent distress. comfortable, Behavior is calm, cooperative. mg2 Pain: Complains of pain in back Pain does not radiate. Pain currently is 5 out of 10 on a pain scale. Quality of pain is described as aching, Pain began gradually, Is intermittent. Neuro: Level of Consciousness is awake, alert, obeys commands, Oriented to person, place, time, situation. Cardiovascular: Capillary refill < 3 seconds Patient's skin is warm and dry. Respiratory: Airway is patent Respiratory effort is even, unlabored, Respiratory pattern is regular, symmetrical. GI: No signs and/or symptoms were reported involving the gastrointestinal system. : No signs and/or symptoms were reported regarding the genitourinary system. EENT: No signs and/or symptoms were reported regarding the EENT system. Derm: patient has dressing on both feet. Musculoskeletal: Circulation, motion, and sensation intact. Capillary refill < 3 seconds. 15:04 Reassessment: patient informed about the need for hospitalization. patient agreed. mg2 Vital Signs: 12:18 BP 81 / 50; Pulse 118; Resp 21; Temp 98.3(O); Pulse Ox 96% on R/A; Weight 122.47 kg; mg2 Height 5 ft. 11 in. (180.34 cm); 13:33 BP 103 / 46; Pulse 115; Resp 18; Pulse Ox 95% on R/A; mg2 14:02 BP 113 / 51; Pulse 115; Resp 18; Pulse Ox 100% on R/A; mg2 15:04 BP 103 / 61; Pulse 108; Resp 18; Pulse Ox 98% on R/A; mg2 12:18 Body Mass Index 37.66 (122.47 kg, 180.34 cm) mg2 ED Course: 12:09 Patient arrived in ED. ss 12:13 Manjeet Gomez MD is Attending Physician. ma2 12:15 Sherwin Silverman RN is Primary Nurse. mg2 12:18 Triage completed. mg2 12:43 Initial lab(s) drawn, by ct, sent to lab. First set of blood cultures drawn by me. lt1 12:50 CT Stone Protocol In Process Unspecified. EDMS 12:51 Inserted saline lock: 22 gauge in left forearm, using aseptic technique. lt1 13:08 Second set of blood cultures drawn by me. lt1 13:09 Patient has correct armband on for positive identification. school bus monitor on. Pulse mg2 ox on. NIBP on. Door closed. Warm blanket given. 13:09 Patient placed. mg2 13:16 No provider procedures requiring assistance completed. mg2 14:03 Yeyo Cardoso MD is Hospitalizing Provider. ma2 16:53 Patient admitted, IV remains in place. mg2 Administered Medications: 12:35 CANCELLED (Duplicate Order): Rocephin 1 grams IV at calculated rate once; Given slow IV ma2 push per pharmacy instructions 13:07 Drug: NS 0.9% 1000 ml Route: IV; Rate: 1 bolus; Site: left forearm; mg2 13:07 Drug: Zosyn 3.375 grams Route: IVPB; Infused Over: 60 mins; Site: left forearm; mg2 15:05 Follow up: Response: No adverse reaction; IV Status: Completed infusion; IV Intake: mg2 1000ml 14:02 Drug: NS 0.9% 1000 ml Route: IV; Rate: 1 bolus; Site: left forearm; mg2 15:05 Follow up: Response: No adverse reaction; IV Status: Completed infusion; IV Intake: mg2 1000ml 14:42 Drug: Aspirin Chewable Tablet 324 mg Route: PO; mg2 15:05 Follow up: Response: No adverse reaction mg2 Point of Care Testing: Blood Glucose: 12:43 Blood Glucose: 263 mg/dL; lt1 12:43 Patients stated the he has high blood sugar. I checked the patients BS and it was lt1 263. The informed me she had just given him a meal replacment drink prior to taking the patients BS. Ranges: Intake: 15:05 IV: 1000ml; Total: 1000ml. mg2 15:05 IV: 1000ml; Total: 2000ml. mg2 Output: 16:30 Urine: 250ml (Voided); Total: 250ml. mg2 Outcome: 14:05 Decision to Hospitalize by Provider. ma2 16:53 Admitted to Tele accompanied by tech, via stretcher, room 403, with chart, Report mg2 called to ANDRIY Livingston 16:53 Condition: stable 16:53 Instructed on the need for admit, Demonstrated understanding of instructions. 17:00 Patient left the ED. mg2 Signatures: Dispatcher [employer] EDMS Alexa Tse RN RN Manjeet Gomez MD MD wa2 Sherwin Silverman RN RN mg2 Dione Bergeron lt1 Corrections: (The following items were deleted from the chart) 13:07 12:18 Pulse 118bpm; Resp 21bpm; Pulse Ox 96% RA; Temp 98.3F Oral; 122.47 kg; Height 5 mg2 ft. 11 in.; BMI: 37.6; mg2
--- NOTE | 2019-04-14 14:07 | EDPHYS ---
Physician Documentation [facility] Name: Garth Sellers Age: 79 yrs Sex: Male : 1940 Arrival Date: 04/14/2019 Time: 12:09 Bed 23 Private MD: ED Physician Manjeet Gomez HPI: 04/14 12:48 This 79 yrs old Male presents to ER via EMS with complaints of tachycardai. ma2 12:48 Onset: The symptoms/episode began/occurred gradually, 2 day(s) ago. Duration: The ma2 patient or guardian reports multiple episodes. Associated signs and symptoms: Pertinent positives: weakness generalized \E\, Pertinent negatives: chest pain, cough, fever, lightheadedness, nausea, SOB, syncope, near-syncope, unusual stressors. Severity of symptoms: At their worst the symptoms were moderate in the emergency department the symptoms are unchanged. The patient has experienced similar episodes in the past. Historical: - Allergies: 12:20 No Known Allergies; mg2 - Home Meds: 13:13 Crestor 10 mg Oral tab 1 tab once daily [Active]; finasteride 5 mg Oral tab 1 tab mg2 [Active]; Glucophage 500 mg Oral tab [Active]; Lasix 40 mg Oral tab [Active]; nortriptyline 25 mg Oral cap [Active]; Novolin N Sub-Q [Active]; Novolin R Sub-Q [Active]; Seroquel 100 mg Oral tab [Active]; tamsulosin 0.4 mg Oral cp24 1 cap once daily [Active]; Toprol XL 200 mg Oral Tb24 [Active]; Zestril 40 mg Oral tab [Active]; Zoloft 100 mg Oral tab 1 tab once daily [Active]; - PMHx: 12:20 CAD; Cancer; Kidney; CHF; CVA; Diabetes - IDDM; High Cholesterol; Hypertension; mg2 Prostate enlargement; 16:52 Myocardial infarction; mg2 - PSHx: 16:52 Heart stents; mg2 - Immunization history:: Flu vaccine is up to date. - Social history:: Smoking status: Patient/guardian denies using tobacco, Patient/guardian denies using alcohol, street drugs, IV drugs, Patient/guardian denies using The patient lives alone, [place] a [place]. - Ebola Screening: : No symptoms or risks identified at this time. - Family history:: not pertinent. - Hospitalizations: : No recent hospitalization is reported. ROS: 12:48 Constitutional: Negative for fever, chills, and weight loss, Eyes: Negative for injury, ma2 pain, redness, and discharge. 12:48 All other systems are negative. Exam: 12:48 Head/Face: Normocephalic, atraumatic. Eyes: Pupils equal round and reactive to light, ma2 extra-ocular motions intact. Lids and lashes normal. Conjunctiva and sclera are non-icteric and not injected. Cornea within normal limits. Periorbital areas with no swelling, redness, or edema. ENT: Nares patent. No nasal discharge, no septal abnormalities noted. Tympanic membranes are normal and external auditory canals are clear. Oropharynx with no redness, swelling, or masses, exudates, or evidence of obstruction, uvula midline. Mucous membranes moist. Neck: Trachea midline, no thyromegaly or masses palpated, and no cervical lymphadenopathy. Supple, full range of motion without nuchal rigidity, or vertebral point tenderness. No Meningismus. Chest/axilla: Normal chest wall appearance and motion. Nontender with no deformity. No lesions are appreciated. Abdomen/GI: Soft, non-tender, with normal bowel sounds. No distension or tympany. No guarding or rebound. No evidence of tenderness throughout. Back: No spinal tenderness. No costovertebral tenderness. Full range of motion. 12:48 Constitutional: The patient appears listless, in obvious distress, moderately distressed. 12:48 Cardiovascular: Rate: tachycardic, Pulses: no pulse deficits are appreciated, Edema: is not appreciated. 12:48 MS/ Extremity: Pulses equal, no cyanosis. Neurovascular intact. Full, normal range ma2 of motion. Neuro: Awake and alert, GCS 15, oriented to person, place, time, and situation. Cranial nerves II-XII grossly intact. Motor strength 5/5 in all extremities. Sensory grossly intact. Cerebellar exam normal. Normal gait. Vital Signs: 12:18 BP 81 / 50; Pulse 118; Resp 21; Temp 98.3(O); Pulse Ox 96% on R/A; Weight 122.47 kg; mg2 Height 5 ft. 11 in. (180.34 cm); 13:33 BP 103 / 46; Pulse 115; Resp 18; Pulse Ox 95% on R/A; mg2 14:02 BP 113 / 51; Pulse 115; Resp 18; Pulse Ox 100% on R/A; mg2 15:04 BP 103 / 61; Pulse 108; Resp 18; Pulse Ox 98% on R/A; mg2 12:18 Body Mass Index 37.66 (122.47 kg, 180.34 cm) mg2 MDM: 12:13 Patient medically screened. [facility] 12:48 Differential diagnosis: arrythmia, dehydration, DKA vs UTI. wy2 14:03 Data reviewed: vital signs, nurses notes. Counseling: I had a detailed discussion with ma the patient and/or guardian regarding: the historical points, exam findings, and any diagnostic results supporting the discharge/admit diagnosis, the presence of at least one elevated blood pressure reading (>120/80) during this emergency department visit, the need for further work-up and treatment in the hospital. Response to treatment: the patient's symptoms have markedly improved after treatment. 04/14 12:14 Order name: Basic Metabolic Panel; Complete Time: 13:31 [facility] 04/14 12:14 Order name: CBC with Diff [facility] 04/14 12:14 Order name: Creatinine for Radiology; Complete Time: 13:31 [facility] 04/14 12:14 Order name: Hepatic Function; Complete Time: 13:31 [facility] 04/14 12:14 Order name: Lipase; Complete Time: 13:31 [facility] 04/14 12:27 Order name: Blood Culture Adult (2) [facility] 04/14 12:49 Order name: Glucose, Ancillary Testing; Complete Time: 12:51 [facility] 04/14 12:51 Order name: Troponin (emerg Dept Use Only); Complete Time: 14:01 [facility] 04/14 14:28 Order name: CKMB Creatine Kinase MB [facility] 04/14 14:28 Order name: CKMB Creatine Kinase MB [facility] 04/14 14:28 Order name: CKMB Creatine Kinase MB [facility] 04/14 14:28 Order name: Troponin I [facility] 04/14 14:28 Order name: Troponin I [facility] 04/14 14:28 Order name: Troponin I [facility] 04/14 12:14 Order name: CT Stone Protocol; Complete Time: 13:31 [facility] 04/14 14:23 Order name: EKG Electrocardiogram [facility] 04/14 14:28 Order name: CONS Pharmacy Consult [facility] 04/14 14:29 Order name: Consistent Carb (ADA) 2000 [address] [facility] 04/14 14:29 Order name: EKG Electrocardiogram [facility] 04/14 14:29 Order name: Basic Metabolic Panel [facility] 04/14 14:29 Order name: Basic Metabolic Panel [facility] 04/14 14:29 Order name: CBC with Automated Diff [facility] 04/14 14:30 Order name: CBC with Automated Diff [facility] 04/14 16:34 Order name: Urine Microscopic [place] [facility] [place] 16:34 Order name: Urine Culture [facility] [place] 12:14 Order name: IV Saline Lock; Complete Time: 12:54 ma2 04/14 12:14 Order name: Labs collected and sent; Complete Time: 12:54 [facility] 04/14 12:14 Order name: Urine Dipstick-Ancillary (obtain specimen); Complete Time: 14:02 [facility] 04/14 13:17 Order name: EKG - Nurse/Tech; Complete Time: 13:17 [facility] [place] 14:29 Order name: EKG Electrocardiogram [facility] 04/14 14:29 Order name: EKG Electrocardiogram [facility] 04/14 14:29 Order name: EKG Electrocardiogram [facility] Administered Medications: 12:35 CANCELLED (Duplicate Order): Rocephin 1 grams IV at calculated rate once; Given slow IV ma2 push per pharmacy instructions 13:07 Drug: NS 0.9% 1000 ml Route: IV; Rate: 1 bolus; Site: left forearm; mg2 13:07 Drug: Zosyn 3.375 grams Route: IVPB; Infused Over: 60 mins; Site: left forearm; mg2 15:05 Follow up: Response: No adverse reaction; IV Status: Completed infusion; IV Intake: mg2 1000ml 14:02 Drug: NS 0.9% 1000 ml Route: IV; Rate: 1 bolus; Site: left forearm; mg2 15:05 Follow up: Response: No adverse reaction; IV Status: Completed infusion; IV Intake: mg2 1000ml 14:42 Drug: Aspirin Chewable Tablet 324 mg Route: PO; mg2 15:05 Follow up: Response: No adverse reaction mg2 Point of Care Testing: Blood Glucose: 12:43 Blood Glucose: 263 mg/dL; lt1 12:43 Patients stated the he has high blood sugar. I checked the patients BS and it was lt1 263. The informed me she had just given him a meal replacment drink prior to taking the patients BS. Ranges: Critical Glucose Levels:Adult <50 mg/dl or >400 mg/dl <40 mg/dl or >180 mg/dl Disposition: 04/14/19 14:05 Hospitalization ordered by Yeyo Cardoso for Inpatient Admission. Preliminary diagnosis are Cystitis, unspecified without hematuria, Sepsis due to other Gram-negative organisms, Non-ST elevation (NSTEMI) myocardial infarction, Tachycardia, unspecified. - Bed requested for Telemetry/MedSurg (Inpatient). - Status is Inpatient Admission. mg2 - Condition is Critical. - Problem is new. - Symptoms are unchanged. UTI on Admission? Yes Signatures: Dispatcher [employer] Anne Whatley RN RN Manjeet Gomez MD MD [facility] Sherwin Silverman RN RN mg2 Corrections: (The following items were deleted from the chart) 12:35 12:27 cefTRIAXone [Rocephin 1 grams IV at calculated rate once; Given slow IV push per [facility] pharmacy instructions] ordered. [facility] 16:30 14:05 Hospitalization Ordered by eYyo Cardoso MD for Inpatient Admission. Preliminary diagnosis is Cystitis, unspecified without hematuria; Sepsis due to other Gram-negative organisms; Non-ST elevation (NSTEMI) myocardial infarction; Tachycardia, unspecified. Bed requested for Telemetry/MedSurg (Inpatient). Status is Inpatient Admission. Condition is Critical. Problem is new. Symptoms are unchanged. UTI on Admission? Yes. [facility] 17:00 16:30 04/14/2019 14:05 Hospitalization Ordered by Yeyo Cardoso MD for Inpatient mg2 Admission. Preliminary diagnosis is Cystitis, unspecified without hematuria; Sepsis due to other Gram-negative organisms; Non-ST elevation (NSTEMI) myocardial infarction; Tachycardia, unspecified. Bed requested for Telemetry/MedSurg (Inpatient). Status is Inpatient Admission. Condition is Critical. Problem is new. Symptoms are unchanged. UTI on Admission? Yes. buzz
[2019-04-14] MEDS ORDERED: CEFTRIAXONE/SWI 1gm 1 GM/10 ML SYR ONE (14:16)
[2019-04-14] MEDS ORDERED: NA CHLORIDE 0.9% 500 ML IV ONE (14:22)
[2019-04-14] MEDS ORDERED: CEFEPIME 1 GM/10 ML SYR IV SCH (14:30)
[2019-04-14] MEDS ORDERED: ASPIRIN 81 MG CHEWABLE TABLET ONE (14:38)
[2019-04-14] MEDS ORDERED: VANCOMYCIN 3 GM in NA CHLORIDE 0.9% 500 ML IVPB ONE (17:00)
[2019-04-14] MEDS: CEFEPIME/SWI 2gm 2 GM/20 ML SYR IVP SCH (17:00)
[2019-04-14 17:26] LABS: Urine Bacteria >50 /HPF (NONE SEEN)
[2019-04-14 17:27] LABS: Urine Amorphous Sediment 3+ /HPF (NONE SEEN); Urine Culture Reflex Order NOT NEEDED
[2019-04-14 18:09] LABS: CKMB Creatine Kinase MB 4.5 ng/mL (0.3-3.6)
[2019-04-14 18:10] LABS: Troponin I 0.72 ng/mL (0.0-0.045)
[2019-04-14 18:12] VITALS: BMI 37.6
[2019-04-14 19:46] LABS: Blood Morphology Comment NOT SEEN (NOT SEEN); Platelet Estimate DECR; Urine White Blood Cell Casts OK
[2019-04-14] MEDS ORDERED: NACHLORIDE 0.45% 1,000 ML IV SCH (21:00)
[2019-04-14] MEDS: ACETAMINOPHEN 500 MG TAB PO PRN (21:00)
[2019-04-14] MEDS: NACHLORIDE 0.45% 1,000 ML IV SCH (21:00)
[2019-04-14] MEDS: INSULIN -REGULAR HUMAN 50 UNIT/0.5 ML ML SQ SCH (21:00)
[2019-04-14] MEDS ORDERED: D50W 25 GM/50 ML SYRINGE IV PRN (21:01)
[2019-04-14] MEDS ORDERED: GLUCAGON 1 MG/VIAL IM PRN (21:01)
[2019-04-14 21:32] LABS: CKMB Creatine Kinase MB 4.8 ng/mL (0.3-3.6)
[2019-04-14 21:37] LABS: Troponin I 0.57 ng/mL (0.0-0.045)
--- NOTE | 2019-04-14 21:46 | P.HP ---
Certification for Inpatient Patient admitted to: Inpatient With expected LOS: >2 Midnights Practitioner: I am a practitioner with admitting privileges, knowledge of patient current condition, hospital course, and medical plan of care. Services: Services provided to patient in accordance with Admission requirements found in Title 42 Section 412.3 of the Code of Federal Regulations Patient History Date of Service: 04/14/19 Reason for admission: WEAKNESS. History of Present Illness: MR. FUNK HAS HAD RENAL PELVIC CANCER, WAS IN [facility] AFTER CYSTOCOPY DONE BY UROLOGIST IN [facility] WITH BROKEN ARM COULD NOT TAKE CARE OF HIM. HE WAS THERE FOR A MONTH. SAID HE IS GETTING WORSE OVER THAT TIME. TODAY HE WENT TO DR. 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 CALLED US AND WE ASKED HER TO HAVE AMBULANCE GO STRAIGT TO ER. WE FIND THAT HE HAS UTI WITH LEUKOCYTOSIS. HE IS NOW ADMITTED HERE. Allergies No Known Allergies Allergy (Verified 03/24/18 13:56) Home Medications: Furosemide [Lasix*] 40 mg PO DAILY 11/10/14 Lisinopril [Zestril] 40 mg PO DAILY 11/10/14 Quetiapine Fumarate [Seroquel] 1 tab PO BEDTIME 11/10/14 Rosuvastatin [Crestor*] 20 mg PO DAILY AT SUPPER 11/10/14 Sertraline [Zoloft*] 1 tab PO DAILY 11/10/14 Finasteride 5 mg PO BEDTIME 03/24/18 Tamsulosin [Flomax*] 0.4 mg PO DAILY AFTER SUPPER 03/24/18 Metoprolol Succinate [Toprol Xl] 25 mg PO DAILY 04/10/18 Cholecalciferol (Vitamin D3) [Vitamin D3] 2 tab PO DAILY 04/14/19 Docusate Sodium 100 mg PO BID 04/14/19 Docusate/Senna [Senokot-S] 1 tab PO DAILY 04/14/19 Famotidine [Pepcid] 20 mg PO DAILY 04/14/19 Insulin Aspart [Novolog] See Protocol SQ ACHS 04/14/19 Insulin Glargine,Hum.rec.anlog [Ellie Mann U-100] 32 unit SQ BEDTIME 04/14 Insulin Lispro [Humalog*] 3 unit SQ AC 04/14/19 Melatonin [Melatonin*] 2 tab PO BEDTIME 04/14/19 Metformin ER [Glucophage ER] 500 mg PO DAILY 04/14/19 Nortriptyline HCl [Pamelor] 20 mg PO BEDTIME 04/14/19 Nystatin Cream [Mycostatin 100MU/Gm Cream] 30 gm TP BID 04/14/19 Potassium Chloride 20 meq PO DAILY PRN 04/14/19 - Past Medical/Surgical History Has patient received pneumonia vaccine in the past: Yes Diabetic: Yes -: IDDM ~30 yrs -: pedal edema -: healed wnd to rt inner lower leg. required wnd care center -: CVA 1989. effected rt side. coumadin -: lower spine detoration -: CYSTITIS -: growth removed from back a neck ~ 25 yrs ago. -: DOUBLE J STENT - Family History Father -: Cancer Notes: rectal Sister -: Diabetes - Social History Smoking Status: Former smoker Alcohol use: No CD- Drugs: No Caffeine use: No Place of Residence: Shelter Review of Systems 10-point ROS is otherwise unremarkable General: Weakness, Malaise, As per HPI Physical Examination - Vital Signs Temperature: 98.3 F Blood Pressure: 103/61 Pulse: 108 Respirations: 18 - Physical Exam General: Mild distress, Obese, Other (EATING WELL.) HEENT: Atraumatic, PERRLA, Mucous membr. moist/pink, EOMI, Sclerae nonicteric Neck: Supple, 2+ carotid pulse no bruit, No LAD, Without JVD or thyroid abnormality Respiratory: Clear to auscultation bilaterally, Normal air movement Cardiovascular: Regular rate/rhythm, Normal S1 S2 Gastrointestinal: Normal bowel sounds, No tenderness Musculoskeletal: No tenderness Integumentary: No rashes Neurological: Normal gait, Normal speech, Normal strength at 5/5 x4 extr, Normal tone, Normal affect Lymphatics: No axilla or inguinal lymphadenopathy - Studies Laboratory Data (last 24 hrs) 04/14/19 12:43: Creatinine 2.17 H 04/14/19 12:43: WBC 18.6 H, Hgb 12.4 L, Hct 35.6 L, Plt Count 116 L 04/14/19 12:43: Sodium 133 L, Potassium 4.7, BUN 71 H, Creatinine 2.18 H, Glucose 253 H, Total Bilirubin 0.9, AST 17, ALT 16, Alkaline Phosphatase 100, Lipase 37 L Assessment and Plan - Problems (Diagnosis) (1) Cancer of renal pelvis Current Visit: Yes Status: Acute Plan: HE HAS BEEN TO ONCOLOGISTS AND UROLOGISTS MORE THAN MY OFFICE. HE HAS L DOUBLE J STENT L RENAL PELVIC AND MASS THERE. HE AT 79 WITH MULTIPLE ISSUES WILL NOT TOLERATE THERAPIES FOR CANCER. 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 DC VANCOMYCIN I DON'T HAVE SUSPCION FOR MRSA. PROGNOSIS OVERALL POOR RAMOS LONG RUN. - Advance Directives Does patient have a Living Will: Yes Does patient have a Durable POA for Healthcare: Yes
[2019-04-14] MEDS: INSULIN GLARGINE 100 UNITS/ML SQ SCH (22:44)
[2019-04-15] MEDS: CEFEPIME/SWI 2gm 2 GM/20 ML SYR IVP SCH ×3 (00:15→18:04)
[2019-04-15] MEDS: INSULIN -REGULAR HUMAN 50 UNIT/0.5 ML ML SQ SCH ×9 (01:00→21:13)
[2019-04-15 06:44] LABS: Absolute Lymphocytes (CBC) 0.9 K/uL (0.7-4.9); Basophils % 0.1 % (0-1.3); Hematocrit 34.8 % (39.6-49.0); Lymphocytes % 6.3 % (15.3-44.8); MPV 10.7 fL (7.6-11.3); RBC Red Blood Cell Count 3.76 M/uL (4.33-5.43)
[2019-04-15 06:51] LABS: Potassium 4.4 mmol/L (3.5-5.1)
--- NOTE | 2019-04-15 07:41 | EKG ---
Test Date: 2019-04-14 Test Time: 13:22:57 Cloth Wire Weaver: JONATHANT MEASUREMENT RESULTS: Intervals: Rate: 117 [place]: 176 QRSD: 100 QT: 352 QTc: 491 [place]: P: [place]: 176 QRS: 61 T: 158 INTERPRETIVE STATEMENTS: Sinus tachycardia with frequent and consecutive premature ventricular complexes Cannot rule out Anterior infarct, age undetermined ST & T wave abnormality, consider inferolateral ischemia Abnormal ECG Compared to ECG 03/03/2019 19:42:18 Ventricular premature complex(es) now present ST (T wave) deviation now present Possible ischemia now present Sinus rhythm no longer present Right bundle-branch block no longer present Myocardial infarct finding still present Electronically Signed On 04-15-19 07:38:19 CDT by Vikas Moore
[2019-04-15] MEDS: DOCUSATE NA 100 MG CAP PO SCH ×2 (09:00→21:12)
[2019-04-15] MEDS ORDERED: METOPROLOL XL 25 MG TAB PO SCH (09:00)
[2019-04-15] MEDS: VITAMIN D 1000 UNIT TAB PO SCH (09:05)
[2019-04-15] MEDS: ASPIRIN EC 81 MG TAB PO SCH (09:05)
[2019-04-15] MEDS: ACETAMINOPHEN 500 MG TAB PO PRN ×2 (09:05→13:34)
[2019-04-15] MEDS: SERTRALINE HCL 100 MG TAB PO SCH (09:05)
[2019-04-15] MEDS: FAMOTIDINE 20 MG TAB PO SCH (09:08)
[2019-04-15] MEDS: LISINOPRIL 20 MG TAB PO SCH (09:08)
[2019-04-15] MEDS: INSULIN LISPRO 100 UNIT/1 ML SQ SCH ×3 (09:09→16:49)
[2019-04-15] MEDS: NACHLORIDE 0.45% 1,000 ML IV SCH ×2 (11:29→21:16)
--- NOTE | 2019-04-15 14:31 | P.PN ---
Subjective Date of Service: 04/15/19 Chief Complaint: WEAK, UTI Subjective: Improving HE IS LOOKING A LOT BETTER. HAS NO PAIN. Review of Systems 10-point ROS is otherwise unremarkable General: Weakness, Malaise Physical Examination - Vital Signs Temperature: 98.8 F Blood Pressure: 115/53 Pulse: 103 Respirations: 24 Pulse Ox (%): 94 - Physical Exam General: Oriented x3, Mild distress, Obese HEENT: Atraumatic, PERRLA, EOMI Neck: Supple, JVD not distended Respiratory: Clear to auscultation bilaterally, Normal air movement Cardiovascular: Regular rate/rhythm, Normal S1 S2 Gastrointestinal: Normal bowel sounds, No tenderness Musculoskeletal: No tenderness Integumentary: No rashes Neurological: Normal speech, Normal tone, Normal affect Lymphatics: No axilla or inguinal lymphadenopathy - Studies Laboratory Data (last 24 hrs) 04/14/19 12:43: WBC 18.6 H, Hgb 12.4 L, Hct 35.6 L, Plt Count 116 L Medications List Reviewed: Yes Assessment And Plan - Current Problems (Diagnosis) (1) Cancer of renal pelvis Current Visit: Yes Status: Acute Plan: HE HAS BEEN TO ONCOLOGISTS AND UROLOGISTS MORE THAN MY OFFICE. HE HAS L DOUBLE J STENT L RENAL PELVIC AND MASS THERE. HE AT 79 WITH MULTIPLE ISSUES WILL NOT TOLERATE THERAPIES FOR CANCER. 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 DC VANCOMYCIN I DON'T HAVE SUSPCION FOR MRSA. PROGNOSIS OVERALL POOR RAMOS LONG RUN. DOING GOOD SO FAR. RESUME ABX HE NEEDS TO WALK BEFORE HE CAN GO TO [place].
[2019-04-15] MEDS: ROSUVASTATIN 10 MG TAB PO SCH (16:49)
[2019-04-15] MEDS: TAMSULOSIN 0.4 MG SR CAP PO SCH (16:49)
[2019-04-15] MEDS: INSULIN GLARGINE 100 UNITS/ML SQ SCH (21:12)
[2019-04-15] MEDS: MELATONIN 3 MG TABLET PO SCH (21:13)
[2019-04-15] MEDS: NORTRIPTYLINE HCL 10 MG CAP PO SCH (21:14)
[2019-04-15] MEDS: QUETIAPINE 25 MG TAB PO SCH (21:14)
[2019-04-15] MEDS: PROMOD 30 ML DOSE PO SCH (21:15)
[2019-04-15] MEDS: FINASTERIDE 5 MG TAB PO SCH (21:15)
[2019-04-16] MEDS: CEFEPIME/SWI 2gm 2 GM/20 ML SYR IVP SCH ×3 (00:52→17:45)
[2019-04-16] MEDS ORDERED: METOPROLOL XL 50 MG TAB PO ONE (04:58)
[2019-04-16] MEDS ORDERED: VANCOMYCIN 2 GM in NA CHLORIDE 0.9% 500 ML IVPB SCH (05:00)
[2019-04-16 05:10] LABS: Basophils % 0.1 % (0-1.3); Hematocrit 32.6 % (39.6-49.0); Lymphocytes % 12.1 % (15.3-44.8); MPV 11.3 fL (7.6-11.3); RBC Red Blood Cell Count 3.57 M/uL (4.33-5.43)
[2019-04-16 05:57] LABS: Thyroid Stimulating Hormone 1.73 uIU/mL (0.360-3.740)
[2019-04-16 06:01] LABS: Magnesium 1.3 mg/dL (1.8-2.4)
[2019-04-16] MEDS ORDERED: Magnesium Sulfate 2gm IVPB 2 G/50 ML BAG IV ONE (06:19)
[2019-04-16] MEDS: INSULIN LISPRO 100 UNIT/1 ML SQ SCH ×3 (08:40→16:27)
[2019-04-16] MEDS: GLIMEPIRIDE 2 MG TABLET PO SCH (08:41)
[2019-04-16] MEDS: VITAMIN D 1000 UNIT TAB PO SCH (08:41)
[2019-04-16] MEDS: ASPIRIN EC 81 MG TAB PO SCH (08:41)
[2019-04-16] MEDS: SERTRALINE HCL 100 MG TAB PO SCH (08:42)
[2019-04-16] MEDS: LISINOPRIL 20 MG TAB PO SCH (08:42)
[2019-04-16] MEDS: METFORMIN ER 500 MG TAB PO SCH (08:42)
[2019-04-16] MEDS: FAMOTIDINE 20 MG TAB PO SCH (08:42)
[2019-04-16] MEDS: DOCUSATE NA 100 MG CAP PO SCH ×2 (08:43→22:27)
[2019-04-16] MEDS: PROMOD 30 ML DOSE PO SCH ×2 (08:44→21:00)
[2019-04-16] MEDS ORDERED: METOPROLOL XL 50 MG TAB PO SCH (09:00)
[2019-04-16] MEDS: INSULIN -REGULAR HUMAN 50 UNIT/0.5 ML ML SQ SCH ×5 (09:00→21:00)
[2019-04-16] MEDS: SOTALOL HCL 80 MG TAB PO SCH ×2 (10:48→17:45)
--- NOTE | 2019-04-16 15:50 | PN ---
Subjective: Patient is feeling better, but slightly tired today. Denies any chest pain, nausea, vom iting. Physical Examination: Vital Signs: Blood pressure 102/62, pulse is up to 170 happened overnight, atrial fibrillation. HEENT: No JVD. No carotid bruits. Chest: Clear. Heart: Irregular. Abdomen: No guarding. No rebound or rigidity. He is morbidly obese. He has a Walker catheter in pl [place]al[place]. Extremities: His both heels have pressure ulcers from fdc. He has a low pulse on both side legs. DP and PT are feeble. Assessment And Plan: Mr. Sellers has multiple medical problems. Unfortunately, at 79 getting chemot herapy for renal pelvis cancer, was not the most tolerable thing for him and is aware of it. I have told her that we are seeing multiple medical problems at this point. 1.Renal pelvic cancer, on chemotherapy, going to [place] off and on at his age of 79 and debilitated condition, not the best situation he has to be in fdc now because the has broken arm a nd so this infection started in fdc. 2.Atrial fibrillation, which is new. Start on Betapace 80 mg p.o. b.i.d., stop Lopressor, start Cyndy christine 2.5 mg p.o. b.i.d. He cannot take a full dose of Eliquis because he had profuse bleeding from h ematuria before. I will have to watch it carefully. 3.Peripheral vascular disease and decubitus ulcers in both heels. These were present at admission, developed in a fdc according to the family, which is because of diabetic peripheral vascular disease. I will order arterial Doppler both sides and he may need atherectomy in the future. 4.Patient has some bladder masses, which are benign according to patient's , but I am not sure a bout the nature of it because he was offered a bladder instillation chemotherapy. Prognosis overall remains guarded. Patient's famil y is aware. AMADO/JACKIE Voice ID: [id number] Report ID: [id number]
[2019-04-16] MEDS: ROSUVASTATIN 10 MG TAB PO SCH (16:26)
[2019-04-16] MEDS: TAMSULOSIN 0.4 MG SR CAP PO SCH (16:29)
--- NOTE | 2019-04-16 20:44 | RAD REPORT ---
EXAM DESCRIPTION: US - Lower Extremity Arterial Bilat - 04/16/2019 8:31 pm CLINICAL HISTORY: Leg pain COMPARISON: None FINDINGS: Waveform of the right common femoral, right superficial femoral and right popliteal arteri es are biphasic. Due to difficulty with patient positioning waveforms of the right dorsalis pedis and left popliteal arteries could not be obtained and are not evaluated. Right posterior tibial arterial waveform is monophasic. Left common femoral arterial waveform triphasic Portions of the left superficial femoral arterial waveform are monophasic and diminished in amplitude . Left posterior tibial arterial waveform is monophasic and diminished amplitude An occlusion is not seen IMPRESSION: Examination was somewhat limited secondary to difficulty with patient positioning Significantly abnormal waveforms within the left superficial femoral artery may indicate a high-grade stenosis
[2019-04-16] MEDS: INSULIN GLARGINE 100 UNITS/ML SQ SCH (21:00)
[2019-04-16] MEDS: APIXABAN 2.5 MG TABLET PO SCH (22:27)
[2019-04-16] MEDS: MELATONIN 3 MG TABLET PO SCH (22:28)
[2019-04-16] MEDS: QUETIAPINE 25 MG TAB PO SCH (22:28)
[2019-04-16] MEDS: FINASTERIDE 5 MG TAB PO SCH (22:28)
[2019-04-16] MEDS: NORTRIPTYLINE HCL 10 MG CAP PO SCH (22:41)
[2019-04-17] MEDS: INSULIN -REGULAR HUMAN 50 UNIT/0.5 ML ML SQ SCH ×6 (01:00→21:47)
[2019-04-17] MEDS: CEFEPIME/SWI 2gm 2 GM/20 ML SYR IVP SCH ×2 (04:40→08:44)
[2019-04-17] MEDS: SOTALOL HCL 80 MG TAB PO SCH ×2 (06:25→17:16)
[2019-04-17] MEDS: INSULIN LISPRO 100 UNIT/1 ML SQ SCH ×2 (08:44→17:15)
[2019-04-17] MEDS: APIXABAN 2.5 MG TABLET PO SCH ×2 (08:44→21:46)
[2019-04-17] MEDS: GLIMEPIRIDE 2 MG TABLET PO SCH (08:45)
[2019-04-17] MEDS: METFORMIN ER 500 MG TAB PO SCH (08:45)
[2019-04-17] MEDS: DOCUSATE NA 100 MG CAP PO SCH ×2 (08:45→21:46)
[2019-04-17] MEDS: VITAMIN D 1000 UNIT TAB PO SCH (08:45)
[2019-04-17] MEDS: FAMOTIDINE 20 MG TAB PO SCH (08:45)
[2019-04-17] MEDS: SERTRALINE HCL 100 MG TAB PO SCH (08:45)
[2019-04-17] MEDS: PROMOD 30 ML DOSE PO SCH ×3 (08:46→21:48)
--- NOTE | 2019-04-17 17:12 | PN ---
Subjective: Mr. Sellers is subjectively about the same. He is tired, exhausted, slightly short of b reath. He has gone through multiple issues lately over the last 1 year including renal pelvis cancer on the left side with chemotherapy for that; recurrent episodes of severe bleeding from urine or hem aturia, giving rise to anemia down to 7 g a couple of times. He has had a major stroke in the past w ith aphasia. He walks with a walker. This admission, he has gone into atrial fibrillation, which is controlled with Betapace. At this time, he comes in through the urologist's office because he was g enerally weak and found to have a UTI and leukocytosis for him. Physical Examination: Vital Signs: His blood pressure is 96/57, pulse is 79, temperature 97.9, respirations 20. Neck: No JVD. No carotid bruits. HEENT: Slightly pale. Abdomen: No guarding, no rebound, no rigidity. Chest: Clear. Heart: Irregular. Investigations: Patient's white count is normal at 8.5; hemoglobin 11; hematocrit 32; platelets of 8 8,000, stable at this point. BUN and creatinine back to normal at 49 and 1.1. Magnesium is slightly low, which has been replaced. Assessment/plan: 1.Atrial fibrillation, controlled rate at this point. Anticoagulation, given a small dose. He has been tolerating so far. With a regular dose, he has had excessive bleeding in the past. 2.Renal pelvic cancer. Not a good prognosis for someone his age with debilitated condition. The wi fe is very understanding and smart about that. 3.Peripheral vascular disease bilaterally in the lower limbs, giving rise to heel ulcers. On Dopple r examination, left superficial femoral artery has high-grade stenosis. On the right side, arterial waveform is monophasic also. Prognosis is overall guarded. I am trying to get him to rehab if possib le. He will need atherectomy in the future for his legs once he is clinically stable. RVSajan/MODL Voice ID: [id number] Report ID: [id number]
[2019-04-17] MEDS: ROSUVASTATIN 10 MG TAB PO SCH (17:15)
[2019-04-17] MEDS: TAMSULOSIN 0.4 MG SR CAP PO SCH (17:16)
--- NOTE | 2019-04-17 18:24 | EKG ---
Test Date: 2019-04-16 Test Time: 13:40:58 Motion Picture Scene Builder: GABRIELLA MEASUREMENT RESULTS: Intervals: Rate: 88 ND: 158 QRSD: 104 QT: 396 QTc: 479 [place]: P: 58 ND: 158 QRS: 65 T: 151 INTERPRETIVE STATEMENTS: Sinus rhythm with premature atrial complexes with aberrant conduction T wave abnormality, consider inferior ischemia Prolonged QT Abnormal ECG Compared to ECG 04/16/2019 04:28:58 Atrial premature complex(es) now present Aberrant conduction of supraventricular beat(s) now present T-wave abnormality now present Possible ischemia now present Prolonged QT interval now present Atrial fibrillation no longer present Right bundle-branch block no longer present Myocardial infarct finding no longer present Electronically Signed On 04-17-19 18:22:53 CDT by Vikas Moore
--- NOTE | 2019-04-17 18:26 | EKG ---
Test Date: 2019-04-16 Test Time: 04:28:58 Medicare Biller: GABRIELLA MEASUREMENT RESULTS: Intervals: Rate: 140 IN: QRSD: 152 QT: 306 QTc: 467 [place]: P: IN: QRS: 101 T: -25 INTERPRETIVE STATEMENTS: Atrial fibrillation with rapid ventricular response Right bundle branch block Possible Inferior infarct, age undetermined Anterior infarct, age undetermined Abnormal ECG Compared to ECG 04/14/2019 13:22:57 Right bundle-branch block now present Sinus tachycardia no longer present Ventricular premature complex(es) no longer present ST (T wave) deviation no longer present Possible ischemia no longer present Myocardial infarct finding still present Electronically Signed On 04-17-19 18:23:02 CDT by Vikas Moore
[2019-04-17] MEDS: AMPICILLIN TRIHYDRATE 500 MG CAP PO SCH (18:28)
--- NOTE | 2019-04-17 20:33 | CON ---
Date of Consultation: 04/16/2019 Reason For Consultation: History of coronary artery disease, status post stent, as well as atrial fi brillation with rapid ventricular response. History Of Present Illness: Mr. Sellers is 79 and has had a history of congestive heart failure, CVA , diabetes, hypertension, dyslipidemia, coronary artery disease status post stent. He has renal pelv ic cancer as well. He is followed by urologist in [place]. He has a chronic Walker catheter placed. His only complaint was actually his discomfort from the Walker. He was asking if this could be remov ed and I discussed the case with Dr. Cardoso in that regard. He will call his urologist in [place]. T he patient has rapid atrial fibrillation. He is now on metoprolol and Eliquis. Does not have any co mplaint from his atrial fibrillation. He does not have any palpitation. No chest pain or shortness of breath. Denies nausea, vomiting, diaphoresis, PND, orthopnea, pedal edema, or syncope. Allergies: NONE. Review of Systems: Negative. Social History: Negative. Family History: Noncontributory. Medications: At home include lisinopril, glimepiride, insulin, Lasix, potassium, Crestor, aspirin, f inasteride, Flomax, metoprolol and metformin. Physical Examination: General: Mr. Sellers was in no acute distress. Appeared rather feeble. Vital Signs: He was in atrial fibrillation at about a rate of 90. He was afebrile. HEENT: Negative. Neck: Supple without any bruit, lymphadenopathy, JVD, or thyromegaly. Chest: Clear to auscultation and percussion. Cardiac: Revealed atrial fibrillation. No murmurs, gallops, or rubs. Abdomen: Benign. Extremities: Revealed no clubbing, cyanosis. He had 1+ edema and chronic venous changes. Skin: Dry and intact. Neurological: He was nonfocal. Vascular: Pulses were present distally bilaterally. Diagnostic Data: His initial creatinine was 2.17, it is now 1.10. Initial white count was 18,000, n ow it is 8.5. He had evidence of UTI and sepsis. His magnesium was 1.3. His troponin was 0.57. Impression And Plan: 1.Atrial fibrillation, new onset, rate controlled, asymptomatic. I agree with use of beta yanique a nd Eliquis. 2.Renal insufficiency with acute renal failure that has resolved. His creatinine now is 1.10. 3.Sepsis and urinary tract infection with elevated white count, much improved. His Walker catheter n eeds to be discussed with Dr. Cardoso and his urologist. 4.Elevated troponin secondary to sepsis and atrial fibrillation. We will get an echocardiogram on h im. 5.Low magnesium, to be supplemented. 6.History of coronary artery disease, status post stent, stable. 7.History of congestive heart failure, chronic, diastolic, stable. 8.History of cerebrovascular accident, stable. 9.Diabetes, well controlled. 10.Dyslipidemia, well controlled. 11.Hypertension, well controlled. 12.Renal pelvic cancer, status post bladder surgery. I do not believe any further chemotherapy is p lanned at this point. Case will be discussed with Dr. Cardoso. I will continue to follow the patient with him. ADAM/JACKIE Voice ID: [id number] Report ID: [id number]
[2019-04-17] MEDS ORDERED: CIPROFLOXACIN 400mg IV 200 ML IV SCH (21:00)
[2019-04-17] MEDS: MELATONIN 3 MG TABLET PO SCH (21:45)
[2019-04-17] MEDS: FINASTERIDE 5 MG TAB PO SCH (21:45)
[2019-04-17] MEDS: QUETIAPINE 25 MG TAB PO SCH (21:46)
[2019-04-17] MEDS: NORTRIPTYLINE HCL 10 MG CAP PO SCH (21:46)
[2019-04-17] MEDS: INSULIN GLARGINE 100 UNITS/ML SQ SCH (21:47)
--- NOTE | 2019-04-17 23:54 | PN ---
Date of Progress Note: 04/17/2019 Mr. Sellers was seen on 04/16/2019, as requested by Dr. Cardoso for atrial fibrillation. He has multip le medical problems including history of CVA, diabetes, dyslipidemia, hypertension, renal pelvic canc er, and history of coronary artery disease, status post stent. In the past, he has had some issues w ith bleeding, on anticoagulation. Dr. Cardoso and I discussed the case yesterday. He is on metoprolol and Eliquis, low-dose. So far, he has tolerated the dose well. His hemoglobin is 11. His white co unt is 8.5. Atrial fibrillation is rate controlled at this point. I would continue the metoprolol a nd low-dose Eliquis. His renal pelvic cancer is being dealt with Urology in [place]. Dr. Janae blake ined an arterial Doppler yesterday that showed left superficial femoral artery high-grade stenosis an d diffuse disease below the knee with heel ulcers. He has plans to refer him for possible atherectom y down the road if he ever becomes stable. Rehab transfer is being attempted. I will be available f or questions if the need arises. ADAM/JACKIE Voice ID: [id number] Report ID: [id number]
[2019-04-18] MEDS: AMPICILLIN TRIHYDRATE 500 MG CAP PO SCH ×4 (00:10→18:05)
[2019-04-18 04:46] LABS: Basophils % 0.2 % (0-1.3); Hematocrit 33.2 % (39.6-49.0); Lymphocytes % 11.9 % (15.3-44.8); RBC Red Blood Cell Count 3.59 M/uL (4.33-5.43)
[2019-04-18] MEDS: SOTALOL HCL 80 MG TAB PO SCH ×2 (05:28→18:05)
[2019-04-18] MEDS: INSULIN -REGULAR HUMAN 50 UNIT/0.5 ML ML SQ SCH ×4 (07:30→21:36)
[2019-04-18] MEDS: PROMOD 30 ML DOSE PO SCH ×2 (09:00→21:39)
[2019-04-18] MEDS: DOCUSATE NA 100 MG CAP PO SCH ×2 (09:00→21:00)
[2019-04-18] MEDS: VITAMIN D 1000 UNIT TAB PO SCH (09:44)
[2019-04-18] MEDS: FAMOTIDINE 20 MG TAB PO SCH (09:44)
[2019-04-18] MEDS: APIXABAN 2.5 MG TABLET PO SCH (09:45)
[2019-04-18] MEDS: GLIMEPIRIDE 2 MG TABLET PO SCH (09:45)
[2019-04-18] MEDS: METFORMIN ER 500 MG TAB PO SCH (09:45)
[2019-04-18] MEDS: SERTRALINE HCL 100 MG TAB PO SCH (09:45)
--- NOTE | 2019-04-18 11:37 | EKG ---
Test Date: 2019-04-16 Test Time: 13:41:28 Linen Sorter: GABRIELLA MEASUREMENT RESULTS: Intervals: Rate: 88 [place]: 154 QRSD: 106 QT: 388 QTc: 469 [place]: P: 60 [place]: 154 QRS: 62 T: 155 INTERPRETIVE STATEMENTS: Normal sinus rhythm Cannot rule out Inferior infarct, age undetermined Abnormal ECG Compared to ECG 04/16/2019 13:40:58 Myocardial infarct finding now present Atrial premature complex(es) no longer present Aberrant conduction of supraventricular beat(s) no longer present T-wave abnormality no longer present Possible ischemia no longer present Prolonged QT interval no longer present Electronically Signed On 04-18-19 11:31:42 CDT by Vikas Moore
[2019-04-18] MEDS: INSULIN LISPRO 100 UNIT/1 ML SQ SCH ×2 (12:52→18:08)
[2019-04-18] MEDS: TAMSULOSIN 0.4 MG SR CAP PO SCH (17:30)
--- NOTE | 2019-04-18 17:49 | PN ---
Subjective: Mr. Sellers is doing reasonably well. He is stable. He denies any chest pain, nausea, and vomiting. Early this afternoon, I got a phone call from the nurse that he had a blood clot from the urine, so I asked her to stop his Eliquis; his is Eliquis which is a small dose anyway. Objective: Vital Signs: Blood pressure anywhere from 96 to109 systolic. Chest: Clear. Heart: Regular. Abdomen: No guarding, no rebound, no rigidity. Morbidly obese gentleman. Laboratory Data: His creatinine is jumped up to 1.32 from 1.10. Hemoglobin stable at 11.4, BUN 64, creatinine 1.32. Sugar about 200. His A1c is about 8.6. Magnesium is within normal now. Assessment And Plan: 1.Urinary tract infection. Continue antibiotics. He is growing out acinetobacter and enterococci f rom the urine, but this is a Walker catheter specimen. He had a Walker catheter in place when he came to the hospital. So, some of this could be a contaminant, but again, he came in with a white count o f elevation and some weakness, so will have to be treated as infection. He is sensitive to tetracycl ine, cefepime, meropenem on one side with acinetobacter and for E faecalis, he is sensitive to penici llin, Levaquin, and ampicillin. 2.General debility from urinary tract infection and cancer itself on the left side he has ureteropel anita cancer. His prognosis remains overall poor. I had a long discussion with the patient's , ema alvarado understands. We will continue antibiotics at this point. 3.Atrial fibrillation. He cannot take anticoagulation anymore. He is on a small dose of sotalol. I am going to reduce a little bit, but he is started to have low bloo d pressure. RVD/MODL Voice ID: [id number] Report ID: [id number]
[2019-04-18] MEDS: ROSUVASTATIN 10 MG TAB PO SCH (18:03)
[2019-04-18] MEDS: FINASTERIDE 5 MG TAB PO SCH (21:35)
[2019-04-18] MEDS: QUETIAPINE 25 MG TAB PO SCH (21:35)
[2019-04-18] MEDS: NORTRIPTYLINE HCL 10 MG CAP PO SCH (21:35)
[2019-04-18] MEDS: INSULIN GLARGINE 100 UNITS/ML SQ SCH (21:36)
[2019-04-18] MEDS: MELATONIN 3 MG TABLET PO SCH (21:36)
[2019-04-19] MEDS: AMPICILLIN TRIHYDRATE 500 MG CAP PO SCH ×4 (00:54→17:13)
[2019-04-19] MEDS: SOTALOL HCL 80 MG TAB PO SCH ×2 (05:52→16:54)
[2019-04-19 06:32] LABS: Basophils % 0.2 % (0-1.3); Hematocrit 34.1 % (39.6-49.0); Lymphocytes % 14.9 % (15.3-44.8); MPV 9.9 fL (7.6-11.3); RBC Red Blood Cell Count 3.71 M/uL (4.33-5.43)
[2019-04-19 07:04] LABS: Potassium 3.8 mmol/L (3.5-5.1)
[2019-04-19] MEDS: INSULIN -REGULAR HUMAN 50 UNIT/0.5 ML ML SQ SCH ×4 (07:30→21:00)
[2019-04-19] MEDS: PROMOD 30 ML DOSE PO SCH ×2 (09:00→21:08)
[2019-04-19] MEDS: DOCUSATE NA 100 MG CAP PO SCH ×2 (09:00→21:07)
[2019-04-19] MEDS: VITAMIN D 1000 UNIT TAB PO SCH (09:17)
[2019-04-19] MEDS: GLIMEPIRIDE 2 MG TABLET PO SCH (09:18)
[2019-04-19] MEDS: FAMOTIDINE 20 MG TAB PO SCH (09:18)
[2019-04-19] MEDS: SERTRALINE HCL 100 MG TAB PO SCH (09:18)
[2019-04-19] MEDS: INSULIN LISPRO 100 UNIT/1 ML SQ SCH ×2 (09:19→16:49)
[2019-04-19] MEDS: METFORMIN ER 500 MG TAB PO SCH (09:19)
[2019-04-19] MEDS: ROSUVASTATIN 10 MG TAB PO SCH (16:50)
[2019-04-19] MEDS: TAMSULOSIN 0.4 MG SR CAP PO SCH (16:53)
--- NOTE | 2019-04-19 18:32 | PN ---
Subjective: Mr. Sellers is stable. Denies any chest pain, nausea, vomiting, diarrhea, or cough. Objective: Chest: Clear. Heart: Regular. General: He is morbidly obese. Vital signs: Blood pressure 112/68, which is improved. Pulse is 71. Laboratory Data: Investigation: BUN and creatinine are 59/1.15, improved, compared to before. Hemo globin is 11, hematocrit 37, and platelets are 138, and WBC count 6600. 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 He is not doing so well wi th chemotherapy. He is 79 years old. I talked to family before which is about starting with ch emotherapy. Patient did not do well many times. 2.Atrial fibrillation control on current medications, which is Betapace. We cannot give him Eliquis because he has profuse hematuria again. 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 4.History of cerebrovascular accident with aphasia, unchanged compared to before, more evident when he is tired and fatigued. 5.Diabetes. Currently controlled and morbid obesity. He enjoys a food. AMADO/BRENDAL Voice ID: [id number] Report ID: [id number]
[2019-04-19] MEDS: INSULIN GLARGINE 100 UNITS/ML SQ SCH (21:00)
[2019-04-19] MEDS: NORTRIPTYLINE HCL 10 MG CAP PO SCH (21:07)
[2019-04-19] MEDS: FINASTERIDE 5 MG TAB PO SCH (21:07)
[2019-04-19] MEDS: MELATONIN 3 MG TABLET PO SCH (21:07)
[2019-04-19] MEDS: QUETIAPINE 25 MG TAB PO SCH (21:08)
[2019-04-20] MEDS: AMPICILLIN TRIHYDRATE 500 MG CAP PO SCH ×3 (00:49→12:52)
[2019-04-20 04:42] LABS: Absolute Lymphocytes (CBC) 1.1 K/uL (0.7-4.9); Basophils % 0.3 % (0-1.3); Hematocrit 31.6 % (39.6-49.0); Lymphocytes % 16.9 % (15.3-44.8); MPV 10.5 fL (7.6-11.3); RBC Red Blood Cell Count 3.45 M/uL (4.33-5.43)
[2019-04-20 04:51] LABS: Potassium 3.9 mmol/L (3.5-5.1)
[2019-04-20] MEDS: SOTALOL HCL 80 MG TAB PO SCH (06:15)
[2019-04-20] MEDS: INSULIN -REGULAR HUMAN 50 UNIT/0.5 ML ML SQ SCH ×2 (07:30→12:52)
[2019-04-20] MEDS: SERTRALINE HCL 100 MG TAB PO SCH (08:24)
[2019-04-20] MEDS: METFORMIN ER 500 MG TAB PO SCH (08:24)
[2019-04-20] MEDS: DOCUSATE NA 100 MG CAP PO SCH (08:24)
[2019-04-20] MEDS: VITAMIN D 1000 UNIT TAB PO SCH (08:24)
[2019-04-20] MEDS: FAMOTIDINE 20 MG TAB PO SCH (08:25)
[2019-04-20] MEDS: PROMOD 30 ML DOSE PO SCH (08:25)
[2019-04-20] MEDS: GLIMEPIRIDE 2 MG TABLET PO SCH (08:25)
[2019-04-20] MEDS: INSULIN LISPRO 100 UNIT/1 ML SQ SCH (08:32)
[2019-04-20] MEDS ORDERED: INSULIN GLARGINE 100 UNITS/ML SQ SCH (09:00)
[2019-04-20] MEDS ORDERED: DOXYCYCLINE 100 MG CAP PO SCH (09:00)
[2019-04-20 10:55] VITALS: O2SAT 93
[2019-04-20 13:10] VITALS: BP 108/46; TEMP 97.5
--- NOTE | 2019-04-20 20:42 | P.DS ---
Admission Date: 04/14/19 Discharge Date: 04/20/19 Disposition: TRANSFER TO SNF Discharge Condition: GOOD Reason for Admission: WEAK, UTI - Problems (1) Cancer of renal pelvis Status: Acute Qualifiers: Laterality: left Qualified Code(s): C65.2 - Malignant neoplasm of left renal pelvis (2) Diabetes mellitus type 2 in obese Status: Acute (3) History of CVA with residual deficit Status: Chronic (4) Sepsis secondary to UTI Status: Acute Brief History of Present Illness: MR. FUNK HAS HAD RENAL PELVIC CANCER, WAS IN SNF AFTER CYSTOCOPY DONE BY UROLOGIST IN [facility] WITH BROKEN ARM COULD NOT TAKE CARE OF HIM. HE WAS THERE FOR A MONTH. SAID HE IS GETTING WORSE OVER THAT TIME. TODAY HE WENT TO DR. LOPEZ IN [place] FOR BENIGN TUMORS IN BLADDER FOR WHICH HE WOULD DO CHEMO INSTILLATION INTO THE BLADDER BUT HE WAS SENT TO US HE IS NOT LOOKING GOOD. CALLED US AND WE ASKED HER TO HAVE AMBULANCE GO STRAIGT TO ER. WE FIND THAT HE HAS UTI WITH LEUKOCYTOSIS. HE IS NOW ADMITTED HERE. MR. FUNK DID BETER WITH IV HYDRATION. HIS BP IMPROVED. I CHANGED FROM METOPROLOL TO SOTALOL FOR A FIB AND THAT CONTROLLED IT. HE COULD NOT TOLTERAE A SMALL DOSE OF ELIQUIS HE BLED FROM URNE. HE IS AT A RISK OF STROKE FROM AFIB. I TALKED TO AND SHE UNDERSTANDS THAT HE CARRIES POOR PROGNOIS WITH MULTIPLE ISSUES. HE IS GOING TO CO NOW FOR ORAL ABX DOXYCYLCIN AND AMPICILIN. Vital Signs/Physical Exam: Temp Pulse Resp BP Pulse Ox 97.5 F 75 18 108/46 L 98 04/20/19 12:00 04/20/19 12:00 04/20/19 12:00 04/20/19 12:00 04/20/19 12:00 Laboratory Data at Discharge: WBC 6.3 K/uL (4.3-10.9) 04/20/19 03:57 Hgb 11.2 g/dL (13.6-17.9) L 04/20/19 03:57 Hct 31.6 % (39.6-49.0) L 04/20/19 03:57 Plt Count 137 K/uL (152-406) L 04/20/19 03:57 Sodium 142 mmol/L (136-145) 04/20/19 03:57 Potassium 3.9 mmol/L (3.5-5.1) 04/20/19 03:57 BUN 42 mg/dL (7-18) H 04/20/19 03:57 Creatinine 0.95 mg/dL (0.55-1.3) 04/20/19 03:57 Glucose 114 mg/dL (74-106) H 04/20/19 03:57 Magnesium 2.0 mg/dL (1.8-2.4) 04/18/19 04:05 Total Bilirubin 0.9 mg/dL (0.2-1.0) 04/14/19 12:43 AST 17 U/L (15-37) 04/14/19 12:43 ALT 16 U/L (12-78) 04/14/19 12:43 Alkaline Phosphatase 100 U/L (45-117) 04/14/19 12:43 Troponin I 0.57 ng/mL (0.0-0.045) H* 04/14/19 20:46 Lipase 37 U/L (73-393) L 04/14/19 12:43 Home Medications: Lisinopril [Zestril] 40 mg PO DAILY 11/10/14 Quetiapine Fumarate [Seroquel] 1 tab PO BEDTIME 11/10/14 Rosuvastatin [Crestor*] 20 mg PO DAILY AT SUPPER 11/10/14 Sertraline [Zoloft*] 1 tab PO DAILY 11/10/14 Finasteride 5 mg PO BEDTIME 03/24/18 Tamsulosin [Flomax*] 0.4 mg PO DAILY AFTER SUPPER 03/24/18 Cholecalciferol (Vitamin D3) [Vitamin D3] 2 tab PO DAILY 04/14/19 Docusate Sodium 100 mg PO BID 04/14/19 Famotidine [Pepcid*] 20 mg PO DAILY 04/14/19 Insulin Aspart [Novolog] See Protocol SQ ACHS 04/14/19 Insulin Glargine,Hum.rec.anlog [Basaglar Kwikpen U-100] 32 unit SQ BEDTIME 04/14 Insulin Lispro [Humalog*] 3 unit SQ AC 04/14/19 Melatonin [Melatonin*] 2 tab PO BEDTIME 04/14/19 Metformin ER [Glucophage ER*] 500 mg PO DAILY 04/14/19 Nortriptyline HCl [Pamelor*] 20 mg PO BEDTIME 04/14/19 Nystatin Cream [Mycostatin 100MU/Gm Cream*] 30 gm TP BID 04/14/19 Ampicillin Trihydrate [Omnipen Cap] 500 mg PO Q6HR cap 04/20/19 Doxycycline Hyclate 100 mg PO BID #20 tablet 04/20/19 Sotalol HCl [Betapace*] 80 mg PO BID 6AM 6PM tab 04/20/19 New Medications: Doxycycline Hyclate 100 mg PO BID #20 tablet
== END 2019-04-20 16:08 | DRG 872 ==
LOC: ER 12:03 → ERHOLD 14:26 → 4TH 16:53
PROVIDERS: ADMIT Internal Medicine; ATTEND Internal Medicine
DX: A41.9 Sepsis, unspecified organism (principal); N39.0 Urinary tract infection, site not specified; C65.9 Malignant neoplasm of unspecified renal pelvis; N17.9 Acute kidney failure, unspecified; I48.91 Unspecified atrial fibrillation; E11.9 Type 2 diabetes mellitus without complications; E66.9 Obesity, unspecified; Z68.37 Body mass index [BMI] 37.0-37.9, adult; L89.629 Pressure ulcer of left heel, unspecified stage; L89.619 Pressure ulcer of right heel, unspecified stage; I73.9 Peripheral vascular disease, unspecified; I69.320 Aphasia following cerebral infarction; I25.10 Atherosclerotic heart disease of native coronary artery without angina pectoris; Z95.5 Presence of coronary angioplasty implant and graft; N28.9 Disorder of kidney and ureter, unspecified
CPT/HCPCS: 36415; 74176; 76377; 80048; 80076; 80202; 81015; 82553; 82962; 83690; 83735; 84443; 84484; 85025; 87040; 87077; 87086; 87088; 87186; 93005; 93925; 94760; 96365; 96366; 97110; 97112; 97116; 97161; 97530; 99285; J0692; J0696; J2543; J3475; J7030

== ENCOUNTER 2019-05-28 22:34 | Emergency (ER) | payer OTHER, BC ==
[2019-05-28] MEDS ORDERED: FAMOTIDINE 20 MG/2 ML VIAL IV ONE (22:46)
[2019-05-28] MEDS ORDERED: FOLIC ACID 5 MG/ML VIAL ONE (22:47)
[2019-05-28] MEDS ORDERED: NA CHLORIDE 0.9% 1,000 ML ONE ×2 (22:48→23:14)
[2019-05-28 22:52] LABS: Protime INR 1.14
[2019-05-28] MEDS ORDERED: DIGOXIN 0.25 MG/ML AMP ONE (23:13)
[2019-05-28] MEDS ORDERED: CEFTRIAXONE/SWI 1gm 1 GM/10 ML SYR ONE (23:13)
[2019-05-28] MEDS ORDERED: METOPROLOL TARTRATE 5 MG/5 ML INJ IV ONE (23:13)
[2019-05-28 23:23] LABS: Basophils % 0.2 % (0-1.3); Hematocrit 38.8 % (39.6-49.0); Lymphocytes % 19.5 % (15.3-44.8); MPV 10.5 fL (7.6-11.3); RBC Red Blood Cell Count 4.22 M/uL (4.33-5.43)
[2019-05-28 23:33] LABS: Albumin 2.3 g/dL (3.4-5.0); Bilirubin Direct 0.2 mg/dL (0-0.2); Bilirubin Total 0.4 mg/dL (0.2-1.0); Magnesium 1.7 mg/dL (1.8-2.4); Potassium 3.5 mmol/L (3.5-5.1); Protein, Total 6.5 g/dL (6.4-8.2); Thyroid Stimulating Hormone 14.7 uIU/mL (0.360-3.740)
[2019-05-28 23:34] LABS: Troponin (Emerg Dept Use Only) 2.93 ng/mL (0.0-0.045)
[2019-05-28] MEDS ORDERED: NA CHLORIDE 0.9% 50 ML IV ONE (23:48)
[2019-05-28] MEDS ORDERED: ALTEPLASE 100 ML IV ONE (23:48)
--- NOTE | 2019-05-28 23:56 | ER ---
Nurse's Notes [facility] Name: Garth Sellers Age: 79 yrs Sex: Male : 1940 Arrival Date: 05/28/2019 Time: 22:36 Bed 4 Private MD: Diagnosis: Cerebral infarction;Atrial fibrillation and flutter-RVR;Aphasia following cerebral infarction;Type 2 diabetes mellitus;Dyspnea;Pleural effusion in conditions classified elsewhere;Hypomagnesemia;Anemia, unspecified Presentation: 05/28 22:37 Presenting complaint: EMS states: "we were called out for a pt that had a syncope jd3 episode wile sitting on the toilet. when we got there he was pale, clammy and diaphoretic. he was hypotensive and confused. we started a IV and gave 500 ml of NS and his mental status and blood pressure started to improve. he was running A-fib RVR on the monitor with rates from 118 to 150's. he also has a history of 2 strokes in the past.". Transition of care: patient was not received from another setting of care. Onset of symptoms was May 28, 2019. Risk Assessment: Do you want to hurt yourself or someone else? Patient reports no desire to harm self or others. Initial Sepsis Screen: Does the patient meet any 2 criteria? Altered Mental Status. HR > 90 bpm. Yes Does the patient have a suspected source of infection? No. Patient's initial sepsis screen is negative. Care prior to arrival: Medication(s) given: Normal saline infusion, 500 mL, IV initiated. 18 GA, in the right forearm, Glucose check: 190 Oxygen administered. via a non-rebreather mask. 22:37 Method Of Arrival: EMS: [facility] jd3 22:37 Acuity: KEVEN 1 jd3 Triage Assessment: 05/29 00:02 Neuro: Reports EMS reported syncope. jd3 Historical: - Allergies: 05/28 22:50 Lipitor; jd3 - Home Meds: 22:50 Crestor 20 mg oral tab [Active]; finasteride 5 mg Oral tab 1 tab [Active]; Glucophage jd3 500 mg Oral tab [Active]; Lasix 40 mg Oral tab [Active]; Lasix 80 mg Oral tab [Active]; tamsulosin 0.4 mg Oral cp24 1 cap once daily [Active]; Toprol XL 50 mg oral Tb24 [Active]; Zoloft 100 mg Oral tab 1 tab once daily [Active]; Zestril 10 mg oral tab [Active]; Novolin N Sub-Q [Active]; Novolin R Sub-Q [Active]; Coumadin 7 mg Oral tab 1 tab once daily [Active]; quetiapine 100 mg oral tab [Active]; Magnesium Oxide Oral [Active]; - PMHx: 22:50 CAD; Hypertension; Prostate enlargement; Diabetes - IDDM; High Cholesterol; CVA; CHF; jd3 Myocardial infarction; Cancer; Kidney; - PSHx: 22:50 Heart stents; jd3 - Immunization history:: Adult Immunizations unknown. - Social history:: Smoking status: unknown. - Family history:: not pertinent. - Ebola Screening: : Patient negative for fever greater than or equal to 101.5 degrees Fahrenheit, and additional compatible Ebola Virus Disease symptoms. Screenin:00 Abuse screen: no signs of abuse noted. Nutritional screening: No deficits noted. jd3 Tuberculosis screening: No symptoms or risk factors identified. Fall Risk IV access (20 points). Gait- Impaired (20 pts.). Mental Status- Overestimates/Forgets Limitations (15 pts.). Total Hilton Fall Scale indicates High Risk Score (45 or more points). Fall prevention measures have been instituted. Side Rails Up X 2 Placed Close to Nursing Station Frequent Obs/Assessments Occuring Family Present and informed to notify staff if the need to leave the bedside. 23:15 The patient is not alert, or is unable to follow commands. Bedside swallow screening jd3 discontinued. Patient kept NPO until cleared by Speech Therapy or Physician. The patient exhibits slurred or garbled speech. The patient is exhibiting difficulty speaking. The patient is exhibiting difficulty understanding words. The patient failed the bedside swallow screening. The patient will be kept NPO until cleared by Speech Therapy or Physician. Assessment: 23:00 General: Appears distressed, Behavior is listless. Pain: Denies pain. Neuro: Level of jb4 Consciousness is awake, confused, listless, Oriented to person, time, Weakness in left in right in bilateral hand(s) arm(s) leg(s) foot/feet Speech is slurred, Facial droop on left. Cardiovascular: Patient's skin is warm and dry. Rhythm is atrial fibrillation with rapid ventricular response. Respiratory: Airway is patent Respiratory effort is even, labored, Respiratory pattern is regular, tachypnea Breath sounds are clear bilaterally. GI: No deficits noted. No signs and/or symptoms were reported involving the gastrointestinal system. : No deficits noted. No signs and/or symptoms were reported regarding the genitourinary system. EENT: No deficits noted. No signs and/or symptoms were reported regarding the EENT system. Derm: Skin is intact, Skin is dry, Skin is pale, Skin temperature is warm. 23:00 Musculoskeletal: Range of motion: limited in all extremities. jb4 23:00 Neuro: Level of Consciousness is awake, alert, obeys commands, Oriented to person, jb4 time, situation, Weakness in left in right in bilateral hand(s) arm(s) leg(s) foot/feet Speech is slurred. 05/29 00:00 Reassessment: Patient and/or family updated on plan of care and expected duration. Pain jb4 level reassessed. Provider notified of wheezing. No new orders at this time. Patient states symptoms have not improved. Respiratory: Airway is patent Respiratory effort is even, labored, Respiratory pattern is regular, tachypnea Breath sounds with wheezes bilaterally. 00:15 Reassessment: PT to CT. jb4 00:50 Reassessment: Patient and/or family updated on plan of care and expected duration. Pain jb4 level reassessed. PT back from CT. Patient states symptoms have not improved. 01:28 Reassessment: Patient and/or family updated on plan of care and expected duration. Pain jb4 level reassessed. Patient states feeling better. Patient states symptoms have improved. General: Appears in no apparent distress. comfortable, Behavior is calm, cooperative. Pain: Denies pain. Neuro: Level of Consciousness is awake, alert, obeys commands, Oriented to person, place, time, situation, Weakness in left hand(s) arm(s) leg(s) foot/feet Speech is slurred, Facial droop on left. Cardiovascular: Patient's skin is warm and dry. Rhythm is atrial fibrillation. Respiratory: Airway is patent Respiratory effort is even, labored, Respiratory pattern is regular, tachypnea Breath sounds with wheezes bilaterally. GI: No deficits noted. No signs and/or symptoms were reported involving the gastrointestinal system. : No deficits noted. No signs and/or symptoms were reported regarding the genitourinary system. EENT: No deficits noted. No signs and/or symptoms were reported regarding the EENT system. Derm: Skin is intact, Skin is dry, Skin is normal, Skin temperature is warm. Musculoskeletal: Range of motion: limited in all extremities. 01:36 Reassessment: report given to Eduin ASHRAF at [facility] j 02:45 Reassessment: Patient appears in no apparent distress at this time. No changes from jb4 previously documented assessment. Patient and/or family updated on plan of care and expected duration. Pain level reassessed. Pt transferred to new facility via EMS. Vital Signs: 05/28 22:43 BP 116 / 72; Pulse 148; Resp 25 S; Temp 98.2(A); Pulse Ox 100% on R/A; Weight 113.4 kg jd3 (R); Height 6 ft. 0 in. (182.88 cm) (R); Pain 0/10; 23:24 BP 82 / 67; Pulse 165; Resp 27 S; Pulse Ox 86% on R/A; jd3 23:35 BP 117 / 86; Pulse 146; Resp 29 S; Pulse Ox 100% on 15% Non-rebreather mask; jd3 23:40 BP 130 / 80; Pulse 138; Resp 24 S; Pulse Ox 100% on 15% Non-rebreather mask; jd3 23:55 BP 122 / 88; Pulse 147; Resp 25; Pulse Ox 99% on 15% Non-rebreather mask; jd3 05/29 00:55 BP 100 / 70; Pulse 124; Resp 23 S; Pulse Ox 100% on R/A; jd3 01:25 BP 94 / 67; Pulse 147; Resp 26; Pulse Ox 100% on 100% Non-rebreather mask; jb4 01:35 BP 112 / 87; Pulse 129; Resp 23; Pulse Ox 100% on R/A; jb4 02:35 BP 105 / 61; Pulse 116; Resp 24; Pulse Ox 100% on R/A; jb4 05/28 22:43 Body Mass Index 33.91 (113.40 kg, 182.88 cm) j NIH Stroke Scale Scores: 05/28 23:21 NIHSS Score: 14 jd3 23:21 NIHSS Score: 14 [facility] ED Course: 22:36 Patient arrived in ED. bb 22:37 Miguel Abel MD is Attending Physician. payal 22:43 Triage completed. jd3 22:44 Arm band placed on. EKG completed in triage. Results shown to MD. jd3 23:00 Patient has correct armband on for positive identification. Placed in gown. Bed in low jd3 position. Call light in reach. Side rails up X2. Adult w/ patient. 23:00 compliance monitor on. Pulse ox on. NIBP on. Warm blanket given. jd3 23:01 CT Head C Spine In Process Unspecified. EDMS 23:03 XRAY Chest (1 view) In Process Unspecified. EDMS 23:10 Garth Meyers, ANDRIY is Primary Nurse. jb4 05/29 02:35 No provider procedures requiring assistance completed. Patient transferred, IV remains jb4 in place. Administered Medications: 05/28 23:05 Drug: NS 0.9% 500 ml Route: IV; Rate: bolus; Site: right forearm; jb4 23:25 Follow up: Response: No adverse reaction; IV Status: Completed infusion; IV Intake: jd3 500ml 23:07 Drug: Pepcid 20 mg Route: IVP; Site: right forearm; jb4 05/29 00:07 Follow up: Response: No adverse reaction jd3 05/28 23:20 Drug: foLIC Acid 1 mg Route: IVPB; Site: right forearm; jd3 05/29 00:07 Follow up: Response: No adverse reaction; IV Status: Completed infusion jd3 05/28 23:25 Drug: NS 0.9% 1000 ml Route: IV; Rate: 125 ml/hr; Site: right forearm; jd3 23:54 Follow up: Rate change 500 bolus; IV Status: Infusion continued jd3 05/29 00:05 Follow up: Response: No adverse reaction; Rate change 125 ml/hr; IV Status: Infusion jd3 continued 01:10 Follow up: Response: No adverse reaction; IV Status: Completed infusion; IV Intake: jd3 1000ml 05/28 23:25 Drug: NS 0.9% 1000 ml Route: IV; Rate: 1 bolus; Site: right forearm; jd3 05/29 00:06 Follow up: Response: No adverse reaction; IV Status: Completed infusion; IV Intake: jd3 1000ml 05/28 23:30 Drug: Digoxin 0.5 mg Route: IVP; Site: right forearm; jd3 05/29 00:07 Follow up: Response: No adverse reaction jd3 05/28 23:33 Drug: Rocephin 1 grams Route: IV; Rate: per protocol; Site: right forearm; jd3 23:35 Follow up: Response: No adverse reaction; IV Status: Completed infusion; IV Intake: [id number] 23:37 Drug: Lopressor 2.5 mg Route: IVP; Site: right forearm; jd3 05/29 00:06 Follow up: Response: No adverse reaction jd3 05/28 23:41 Drug: Lopressor 2.5 mg Route: IVP; Site: right forearm; jd3 05/29 00:07 Follow up: Response: No adverse reaction jd3 00:04 Drug: ACTIvase {Co-Signature: bb (Lori Marie RN).} Route: IV Thrombolytics; Rate: jd3 calculated rate; Infused Over: 60 mins; 02:09 Follow up: Response: No adverse reaction; Marked relief of symptoms; Infusion finished jb4 with a 50ml bag of 0.9 NS to ensure full dose of TP-a is administered, 01:11 Drug: NS 0.9% 1000 ml Route: IV; Rate: 125 ml/hr; Site: right forearm; jd3 01:37 Follow up: Response: No adverse reaction; IV Status: Infusion continued upon transfer jb4 02:22 Drug: Lopressor 2.5 mg Route: IVP; Site: right wrist; jb4 02:34 Follow up: Response: No adverse reaction jb4 02:26 Drug: Lopressor 2.5 mg Route: IVP; Site: right wrist; jb4 02:33 Follow up: Response: No adverse reaction jb4 02:32 Drug: Magnesium Sulfate 1 grams Route: IVPB; Infused Over: 1 hrs; Site: right wrist; jb4 02:33 Follow up: Response: Medication administered at discharge.; IV Status: Infusion jb4 continued upon transfer Intake: 05/28 23:25 IV: 500ml; Total: 500ml. jd3 23:35 IV: 10ml; Total: 510ml. jd3 05/29 00:06 IV: 1000ml; Total: 1510ml. jd3 01:10 IV: 1000ml; Total: 2510ml. jd3 Outcome: 05/28 23:55 ER care complete, transfer ordered by MD. moe 05/29 02:35 Transferred by ground EMS to [facility], [facility] [place], Transfer form completed. jb4 X-rays sent w/ patient. Condition: stable Discharge instructions given to patient, family, Instructed on the need for transfer, Demonstrated understanding of instructions. 02:47 Patient left the ED. jb4 NIH Stroke Scale - NIH Stroke Score Date: 05/28/2019 Time: 23:21 Total Score = 14 1a. Level of Consciousness (LOC) - 1(Not Alert) 1b. Level of Consciousness (LOC) (Year \\T\\ Age) - 2(Neither) 1c. LOC Commands (Open \\T\\ Closes Eyes/Law Office Receptionist) - 2(Neither) 2. Best Gaze (Lateral Gaze Paresis) - 1(Partial gaze palsy) 3. Visual Field Loss - 0(No visual loss) 4. Facial Palsy - 2(Partial paralysis) 5a. Left Arm: Motor (10-second hold) - 0(No drift) 5b. Right Arm: Motor (10-second hold) - 1(Drift) 6a. Left Leg: Motor (5-second hold - always test supine) - 0(No drift) 6b. Right Leg: Motor (5-second hold - always test supine) - 1(Drift) 7. Limb Ataxia (finger/nose \\T\\ heel/salazar - test with eyes open) - 0(Absent) 8. Sensory Loss (pinprick arms/legs/face) - 0(Normal) 9. Best Language: Aphasia (description/naming/reading) - 2(Severe aphasia) 10. Dysarthria (speech clarity - read or repeat words) - 2(Severe) 11. Extinction and Inattention (visual/tactile/auditory/spatial/personal) - 0(No abnormality) Initials: jd3 NIH Stroke Scale - NIH Stroke Score Date: 05/28/2019 Time: 23:21 Total Score = 14 1a. Level of Consciousness (LOC) - 1(Not Alert) 1b. Level of Consciousness (LOC) (Year \\T\\ Age) - 0(Both) 1c. LOC Commands (Open \\T\\ Closes Eyes/Law Office Receptionist) - 0(Both) 2. Best Gaze (Lateral Gaze Paresis) - 0(Normal) 3. Visual Field Loss - 0(No visual loss) 4. Facial Palsy - 0(Normal) 5a. Left Arm: Motor (10-second hold) - 4(No movement) 5b. Right Arm: Motor (10-second hold) - 0(No drift) 6a. Left Leg: Motor (5-second hold - always test supine) - 4(No movement) 6b. Right Leg: Motor (5-second hold - always test supine) - 0(No drift) 7. Limb Ataxia (finger/nose \\T\\ heel/salazar - test with eyes open) - 2(Present in two limbs) 8. Sensory Loss (pinprick arms/legs/face) - 1(Mild to moderate loss) 9. Best Language: Aphasia (description/naming/reading) - 1(Mild to moderate aphasia) 10. Dysarthria (speech clarity - read or repeat words) - 1(Mild to Moderate) 11. Extinction and Inattention (visual/tactile/auditory/spatial/personal) - 0(No abnormality) Initials: payal Signatures: Dispatcher [employer] EDFL Miguel Abel MD MD cha Ballard, Brenda, RN RN bb Bryson, James, RN RN jb4 Davies, Jonathon, RN RN jvolodymyr yoon Corrections: (The following items were deleted from the chart) 05/28 23:10 23:00 Respiratory: Airway is patent Respiratory effort is even, unlabored, jb4 Respiratory pattern is regular, symmetrical, jb4 23:53 23:53 Rate change bolus; IV Status: Infusion continued jd3 jd3 23:54 23:54 Response: No adverse reaction; IV Status: Completed infusion; IV Intake: jd3 500ml jd3 23:55 23:25 Rate change bolus; IV Status: Infusion continued jd3 jd3 05/29 00:00 05/28 23:40 BP 130 / 80; Pulse 138bpm; Resp 24bpm; Spontaneous; Pulse Ox 100% jd3 RA; jd3 05/29 00:02 05/28 23:00 The patient is not alert, or is unable to follow commands. Bedside jd3 swallow screening discontinued. Patient kept NPO until cleared by Speech Therapy or Physician. The patient exhibits slurred or garbled speech. The patient is exhibiting difficulty speaking. The patient is exhibiting difficulty understanding words. The patient failed the bedside swallow screening. The patient will be kept NPO until cleared by Speech Therapy or Physician. jd3 05/29 00: Tuberculosis screening: No symptoms or risk factors identified. jd3 j 00:02 Nutritional screening: No deficits noted. jd3 j 00: Abuse screen: no signs of abuse noted jd3 j 00: Fall Risk IV access (20 points). Gait- Impaired (20 pts.). Mental Status- jd3 Overestimates/Forgets Limitations (15 pts.). Total Hilton Fall Scale indicates High Risk Score (45 or more points). Fall prevention measures have been instituted. Side Rails Up X 2 Placed Close to Nursing Station Frequent Obs/Assessments Occuring Family Present and informed to notify staff if the need to leave the bedside jd3 :16 05/28 23:10 The patient is not alert, or is unable to follow commands. Bedside jd3 swallow screening discontinued. Patient kept NPO until cleared by Speech Therapy or Physician. The patient exhibits slurred or garbled speech. The patient is exhibiting difficulty speaking. The patient is exhibiting difficulty understanding words. The patient failed the bedside swallow screening. The patient will be kept NPO until cleared by Speech Therapy or Physician. j 05/29 23:00 General: Appears distressed, Behavior is listless, jb4 jb4 05/29 23:00 Neuro: Level of Consciousness is awake, listless, Oriented to none jb4 jb4 05/29 23:00 Cardiovascular: Rhythm is atrial fibrillation with rapid jb4 ventricular response jb4
--- NOTE | 2019-05-28 23:56 | EDPHYS ---
Physician Documentation [facility] Name: Garth Sellers Age: 79 yrs Sex: Male : 1940 Arrival Date: 05/28/2019 Time: 22:36 Bed 4 Private MD: ED Physician Miguel Abel HPI: 05/28 22:39 This 79 yrs old Male presents to ER via Unassigned with complaints of Syncope.payal 22:39 The patient has experienced near-syncope. Onset: The symptoms/episode began/occurred payal just prior to arrival. Duration: This was a single episode, that lasted 30 second(s). Context: the episode(s) was witnessed, by family, . Associated injury: The patient did not suffer any apparent associated injury. Associated signs and symptoms: Pertinent positives: confusion, dizziness, headache, nausea. Current symptoms: Currently, the patient is not experiencing any symptoms. Historical: - Allergies: 22:50 Lipitor; jd3 - Home Meds: 22:50 Crestor 20 mg oral tab [Active]; finasteride 5 mg Oral tab 1 tab [Active]; Glucophage jd3 500 mg Oral tab [Active]; Lasix 40 mg Oral tab [Active]; Lasix 80 mg Oral tab [Active]; tamsulosin 0.4 mg Oral cp24 1 cap once daily [Active]; Toprol XL 50 mg oral Tb24 [Active]; Zoloft 100 mg Oral tab 1 tab once daily [Active]; Zestril 10 mg oral tab [Active]; Novolin N Sub-Q [Active]; Novolin R Sub-Q [Active]; Coumadin 7 mg Oral tab 1 tab once daily [Active]; quetiapine 100 mg oral tab [Active]; Magnesium Oxide Oral [Active]; - PMHx: 22:50 CAD; Hypertension; Prostate enlargement; Diabetes - IDDM; High Cholesterol; CVA; CHF; jd3 Myocardial infarction; Cancer; Kidney; - PSHx: 22:50 Heart stents; jd3 - Immunization history:: Adult Immunizations unknown. - Social history:: Smoking status: unknown. - Family history:: not pertinent. - Ebola Screening: : Patient negative for fever greater than or equal to 101.5 degrees Fahrenheit, and additional compatible Ebola Virus Disease symptoms. ROS: 22:41 Constitutional: Negative for fever, chills, and weight loss, Eyes: Negative for injury, payal pain, redness, and discharge, ENT: Negative for injury, pain, and discharge, Neck: Negative for injury, pain, and swelling, Respiratory: Negative for shortness of breath, cough, wheezing, and pleuritic chest pain, Abdomen/GI: Negative for abdominal pain, nausea, vomiting, diarrhea, and constipation, Back: Negative for injury and pain, : Negative for injury, bleeding, discharge, and swelling, MS/Extremity: Negative for injury and deformity, Skin: Negative for injury, rash, and discoloration, Psych: Negative for depression, anxiety, suicide ideation, homicidal ideation, and hallucinations, Allergy/Immunology: Negative for hives, rash, and allergies, Endocrine: Negative for neck swelling, polydipsia, polyuria, polyphagia, and marked weight changes, Hematologic/Lymphatic: Negative for swollen nodes, abnormal bleeding, and unusual bruising. 22:41 Cardiovascular: Positive for palpitations. 22:41 Neuro: Positive for altered mental status, gait disturbance, weakness. Exam: 22:41 Constitutional: This is a well developed, well nourished patient who is awake, alert, payal and in no acute distress. Head/Face: Normocephalic, atraumatic. Eyes: Pupils equal round and reactive to light, extra-ocular motions intact. Lids and lashes normal. Conjunctiva and sclera are non-icteric and not injected. Cornea within normal limits. Periorbital areas with no swelling, redness, or edema. ENT: Nares patent. No nasal discharge, no septal abnormalities noted. Tympanic membranes are normal and external auditory canals are clear. Oropharynx with no redness, swelling, or masses, exudates, or evidence of obstruction, uvula midline. Mucous membranes moist. Neck: Trachea midline, no thyromegaly or masses palpated, and no cervical lymphadenopathy. Supple, full range of motion without nuchal rigidity, or vertebral point tenderness. No Meningismus. Chest/axilla: Normal chest wall appearance and motion. Nontender with no deformity. No lesions are appreciated. Respiratory: Lungs have equal breath sounds bilaterally, clear to auscultation and percussion. No rales, rhonchi or wheezes noted. No increased work of breathing, no retractions or nasal flaring. Abdomen/GI: Soft, non-tender, with normal bowel sounds. No distension or tympany. No guarding or rebound. No evidence of tenderness throughout. Back: No spinal tenderness. No costovertebral tenderness. Full range of motion. Male : Normal genitalia with no discharge or lesions. Skin: Warm, dry with normal turgor. Normal color with no rashes, no lesions, and no evidence of cellulitis. MS/ Extremity: Pulses equal, no cyanosis. Neurovascular intact. Full, normal range of motion. Psych: Awake, alert, with orientation to person, place and time. Behavior, mood, and affect are within normal limits. 22:41 Neuro: Orientation: unable to test, Mentation: slow to respond, confused, Memory: unable to test, Cranial nerves: grossly normal, is grossly normal based on the patient's age, no acute changes, Cerebellar function: unable to test, Motor: moves all fours, Sensation: unable to test, Gait: not tested. seizure activity, is not displayed by the patient. Vital Signs: 22:43 BP 116 / 72; Pulse 148; Resp 25 S; Temp 98.2(A); Pulse Ox 100% on R/A; Weight 113.4 kg jd3 (R); Height 6 ft. 0 in. (182.88 cm) (R); Pain 0/10; 23:24 BP 82 / 67; Pulse 165; Resp 27 S; Pulse Ox 86% on R/A; jd3 23:35 BP 117 / 86; Pulse 146; Resp 29 S; Pulse Ox 100% on 15% Non-rebreather mask; jd3 23:40 BP 130 / 80; Pulse 138; Resp 24 S; Pulse Ox 100% on 15% Non-rebreather mask; jd3 23:55 BP 122 / 88; Pulse 147; Resp 25; Pulse Ox 99% on 15% Non-rebreather mask; jd3 05/29 00:55 BP 100 / 70; Pulse 124; Resp 23 S; Pulse Ox 100% on R/A; jd3 01:25 BP 94 / 67; Pulse 147; Resp 26; Pulse Ox 100% on 100% Non-rebreather mask; jb4 01:35 BP 112 / 87; Pulse 129; Resp 23; Pulse Ox 100% on R/A; jb4 02:35 BP 105 / 61; Pulse 116; Resp 24; Pulse Ox 100% on R/A; jb4 05/28 22:43 Body Mass Index 33.91 (113.40 kg, 182.88 cm) jd3 NIH Stroke Scale Scores: 05/28 23:21 NIHSS Score: 14 jd3 23:21 NIHSS Score: 14 [facility] Procedures: 05/29 00:04 Performed TPA ADMINISTRATION WAS DELAYED BY WHO OSCILLATED BACK AND FORTH, NOT payal WANTING UNTIL AFTER THE 1 HOUR IN THE DEPARTMENT, FINALLY AGREEING TO RECEIVE TPA AT 2346, WILL PLAN TO TRANSFER TO NICU. MDM: 05/28 22:43 Data reviewed: vital signs, nurses notes, lab test result(s), EKG, radiologic studies, [facility] CT scan, plain films. 22:49 Patient medically screened. [facility] 05/28 22:38 Order name: Basic Metabolic Panel; Complete Time: 00:02 [facility] 05/28 22:38 Order name: CBC with Diff; Complete Time: 23:43 [facility] 05/28 22:38 Order name: LFT's; Complete Time: 00:02 [facility] 05/28 22:38 Order name: Magnesium; Complete Time: 00:02 [facility] 05/28 22:38 Order name: NT PRO-BNP; Complete Time: 00:02 [facility] 05/28 22:38 Order name: PT-INR; Complete Time: 23:43 [facility] 05/28 22:38 Order name: Troponin (emerg Dept Use Only); Complete Time: 00:02 [facility] 05/28 22:38 Order name: Urine Culture [facility] 05/28 22:41 Order name: Blood Culture Adult (2) [facility] 05/28 22:41 Order name: Procalcitonin; Complete Time: 00:02 [facility] 05/28 22:52 Order name: Lactate; Complete Time: 23:43 [facility] 05/28 23:02 Order name: Thyroid Stimulating Hormone; Complete Time: 00:02 [facility] 05/28 23:35 Order name: T4 Free; Complete Time: 00:02 [facility] 05/28 22:38 Order name: XRAY Chest (1 view) [facility] 05/28 22:38 Order name: CT Head C Spine [facility] 05/28 22:38 Order name: Cardiac monitoring; Complete Time: 22:53 [facility] 05/28 22:38 Order name: EKG - Nurse/Tech; Complete Time: 22:53 [facility] 05/28 22:38 Order name: IV Saline Lock; Complete Time: 22:53 [facility] 05/28 22:38 Order name: Labs collected and sent; Complete Time: 22:53 [facility] 05/28 22:38 Order name: O2 Per Protocol; Complete Time: 22:54 [facility] 05/28 22:38 Order name: O2 Sat Monitoring; Complete Time: 22:54 [facility] 05/28 22:38 Order name: Urine Dipstick-Ancillary (obtain specimen); Complete Time: 00:00 [facility] Administered Medications: 23:05 Drug: NS 0.9% 500 ml Route: IV; Rate: bolus; Site: right forearm; [facility] 23:25 Follow up: Response: No adverse reaction; IV Status: Completed infusion; IV Intake: jd3 500ml 23:07 Drug: Pepcid 20 mg Route: IVP; Site: right forearm; [facility] 05/29 00:07 Follow up: Response: No adverse reaction [facility] 05/28 23:20 Drug: foLIC Acid 1 mg Route: IVPB; Site: right forearm; [facility] 05/29 00:07 Follow up: Response: No adverse reaction; IV Status: Completed infusion [facility] 05/28 23:25 Drug: NS 0.9% 1000 ml Route: IV; Rate: 125 ml/hr; Site: right forearm; [facility] 23:54 Follow up: Rate change 500 bolus; IV Status: Infusion continued 05/29 00:05 Follow up: Response: No adverse reaction; Rate change 125 ml/hr; IV Status: Infusion [facility] continued 01:10 Follow up: Response: No adverse reaction; IV Status: Completed infusion; IV Intake: jd3 1000ml 05/28 23:25 Drug: NS 0.9% 1000 ml Route: IV; Rate: 1 bolus; Site: right forearm; [facility] 05/29 00:06 Follow up: Response: No adverse reaction; IV Status: Completed infusion; IV Intake: jd3 1000ml 05/28 23:30 Drug: Digoxin 0.5 mg Route: IVP; Site: right forearm; [facility] 05/29 00:07 Follow up: Response: No adverse reaction [facility] 05/28 23:33 Drug: Rocephin 1 grams Route: IV; Rate: per protocol; Site: right forearm; [facility] 23:35 Follow up: Response: No adverse reaction; IV Status: Completed infusion; IV Intake: [id number] 23:37 Drug: Lopressor 2.5 mg Route: IVP; Site: right forearm; jd3 05/29 00:06 Follow up: Response: No adverse reaction jd3 05/28 23:41 Drug: Lopressor 2.5 mg Route: IVP; Site: right forearm; jd3 05/29 00:07 Follow up: Response: No adverse reaction jd3 00:04 Drug: ACTIvase {Co-Signature: bb (Lori Marie RN).} Route: IV Thrombolytics; Rate: jd3 calculated rate; Infused Over: 60 mins; 02:09 Follow up: Response: No adverse reaction; Marked relief of symptoms; Infusion finished jb4 with a 50ml bag of 0.9 NS to ensure full dose of TP-a is administered, 01:11 Drug: NS 0.9% 1000 ml Route: IV; Rate: 125 ml/hr; Site: right forearm; jd3 01:37 Follow up: Response: No adverse reaction; IV Status: Infusion continued upon transfer jb4 02:22 Drug: Lopressor 2.5 mg Route: IVP; Site: right wrist; jb4 02:34 Follow up: Response: No adverse reaction jb4 02:26 Drug: Lopressor 2.5 mg Route: IVP; Site: right wrist; jb4 02:33 Follow up: Response: No adverse reaction jb4 02:32 Drug: Magnesium Sulfate 1 grams Route: IVPB; Infused Over: 1 hrs; Site: right wrist; jb4 02:33 Follow up: Response: Medication administered at discharge.; IV Status: Infusion jb4 continued upon transfer Disposition: 05/28/19 23:55 Transfer ordered to [facility]. Diagnosis are Cerebral infarction, Atrial fibrillation and flutter - RVR, Aphasia following cerebral infarction, Type 2 diabetes mellitus, Dyspnea, Pleural effusion in conditions classified elsewhere, Hypomagnesemia, Anemia, unspecified. - Reason for transfer: Higher level of care. - Accepting physician is to rust. - Condition is Stable. - Problem is new. - Symptoms have improved. NIH Stroke Scale - NIH Stroke Score Date: 05/28/2019 Time: 23:21 Total Score = 14 1a. Level of Consciousness (LOC) - 1(Not Alert) 1b. Level of Consciousness (LOC) (Year \T\ Age) - 2(Neither) 1c. LOC Commands (Open \T\ Closes Eyes/Director [employer]) - 2(Neither) 2. Best Gaze (Lateral Gaze Paresis) - 1(Partial gaze palsy) 3. Visual Field Loss - 0(No visual loss) 4. Facial Palsy - 2(Partial paralysis) 5a. Left Arm: Motor (10-second hold) - 0(No drift) 5b. Right Arm: Motor (10-second hold) - 1(Drift) 6a. Left Leg: Motor (5-second hold - always test supine) - 0(No drift) 6b. Right Leg: Motor (5-second hold - always test supine) - 1(Drift) 7. Limb Ataxia (finger/nose \T\ heel/salazar - test with eyes open) - 0(Absent) 8. Sensory Loss (pinprick arms/legs/face) - 0(Normal) 9. Best Language: Aphasia (description/naming/reading) - 2(Severe aphasia) 10. Dysarthria (speech clarity - read or repeat words) - 2(Severe) 11. Extinction and Inattention (visual/tactile/auditory/spatial/personal) - 0(No abnormality) Initials: jd3 NIH Stroke Scale - NIH Stroke Score Date: 05/28/2019 Time: 23:21 Total Score = 14 1a. Level of Consciousness (LOC) - 1(Not Alert) 1b. Level of Consciousness (LOC) (Year \T\ Age) - 0(Both) 1c. LOC Commands (Open \T\ Closes Eyes/Director Of [employer]) - 0(Both) 2. Best Gaze (Lateral Gaze Paresis) - 0(Normal) 3. Visual Field Loss - 0(No visual loss) 4. Facial Palsy - 0(Normal) 5a. Left Arm: Motor (10-second hold) - 4(No movement) 5b. Right Arm: Motor (10-second hold) - 0(No drift) 6a. Left Leg: Motor (5-second hold - always test supine) - 4(No movement) 6b. Right Leg: Motor (5-second hold - always test supine) - 0(No drift) 7. Limb Ataxia (finger/nose \T\ heel/salazar - test with eyes open) - 2(Present in two limbs) 8. Sensory Loss (pinprick arms/legs/face) - 1(Mild to moderate loss) 9. Best Language: Aphasia (description/naming/reading) - 1(Mild to moderate aphasia) 10. Dysarthria (speech clarity - read or repeat words) - 1(Mild to Moderate) 11. Extinction and Inattention (visual/tactile/auditory/spatial/personal) - 0(No abnormality) Initials: [facility] Signatures: Dispatcher [employer] [facility] Miguel Abel MD MD cha Bryson, James RN RN jb4 Chris Sweet RN RN jd3 Lori Marie RN bb Corrections: (The following items were deleted from the chart) 05/28 23:02 22:50 THYROID STIMULAT HORMONE+C.LAB.BRZ ordered. [facility] 05/29 00:01 05/28 23:55 05/28/2019 23:55 Transfer ordered to [facility]. Diagnosis is Cerebral infarction; Atrial fibrillation and flutter - RVR; Aphasia following cerebral infarction; Type 2 diabetes mellitus; Dyspnea; Pleural effusion in conditions classified elsewhere. Reason for transfer: Higher level of care. Accepting physician is to rust. Condition is Stable. Problem is new. Symptoms have improved. [facility] 05/29 00:03 00:01 05/28/2019 23:55 Transfer ordered to [facility]. [facility] Diagnosis is Cerebral infarction; Atrial fibrillation and flutter - RVR; Aphasia following cerebral infarction; Type 2 diabetes mellitus; Dyspnea; Pleural effusion in conditions classified elsewhere; Hypomagnesemia. Reason for transfer: Higher level of care. Accepting physician is to rust. Condition is Stable. Problem is new. Symptoms have improved. [facility] 02:28 05/28 23:45 Head Angio+CT.RAD.BRZ ordered. [facility] 05/29 02:47 00:03 05/28/2019 23:55 Transfer ordered to [facility]. jb4 Diagnosis is Cerebral infarction; Atrial fibrillation and flutter - RVR; Aphasia following cerebral infarction; Type 2 diabetes mellitus; Dyspnea; Pleural effusion in conditions classified elsewhere; Hypomagnesemia; Anemia, unspecified. Reason for transfer: Higher level of care. Accepting physician is to rust. Condition is Stable. Problem is new. Symptoms have improved. [facility]
[2019-05-29] MEDS ORDERED: NA CHLORIDE 0.9% 1,000 ML ONE (01:08)
[2019-05-29] MEDS ORDERED: MAGNESIUM SULFATE 1 gm IVPB 1 GM/100 ML BAG IV ONE (02:14)
[2019-05-29] MEDS ORDERED: METOPROLOL TARTRATE 5 MG/5 ML INJ IV ONE (02:14)
[2019-05-29 03:03] VITALS: TEMP 98.2
[2019-05-29 03:08] VITALS: O2SAT 100
[2019-05-29 03:11] VITALS: BP 105/61
--- NOTE | 2019-05-29 11:04 | RAD REPORT ---
EXAM DESCRIPTION: RAD - Chest Single View - 05/28/2019 11:05 pm CLINICAL HISTORY: COUGH Chest pain. COMPARISON: Chest Single View dated 03/03/2019; Chest Pa And Lat (2 Views) dated 04/10/2018; Chest Singl e View dated 03/24/2018 FINDINGS: Portable technique limits examination quality. Moderate right sided mid and lower lung infiltrate is seen with a small right pleural effusion, most compatible with pneumonia. The heart is upper limit normal in size. No displaced fractures. IMPRESSION: Moderate right mid and lower lung pneumonia.
--- NOTE | 2019-05-30 12:39 | RAD REPORT ---
EXAM DESCRIPTION: Head C Spine Mpr Wo Con ADDENDUM #1 TECHNIQUE: Cervical spine CT was performed without contrast. Multiplanar reformatted images were pro vided. This exam was performed according to our departmental dose optimization program which includes use of automated exposure control, adjustment of the mA and/or kV according to patient size and/or u se of iterative reconstruction technique. COMPARISON: 08/09/2018. FINDINGS: Cervical spine sagittal images are made available for interpretation. There is normal alignment of the cervical spine without fracture or subluxation. The facets are tor l in alignment bilaterally. The posterior elements including the spinous processes are intact. Straightening of the cervical spin e which may be secondary to positioning for the examination. Morphology and attenuation of the vertebral bodies and intervertebral disk spaces is compatible with multilevel degenerative change. Bony fusion of C5, C6, C7 vertebral levels again noted. Partial bony fusion of T2 and T3 vertebrae present. Ventral one ossification of the cervical thoracic spine beginn ing at C5 vertebral level. There is relative preservation of the disk space suggesting diffuse idiopa thic skeletal hyperostosis. Multilevel posterior osseous spurring results in neuroforaminal narrowing throughout the cervical spi ne. Additionally, posterior osseous spurring at C3-4, C4-5, C5-6 vertebral level resulting in effacem ent of the ventral thecal sac and mild to moderate central spinal canal narrowing. Large right-sided pleural effusion. The pre-and paravertebral soft tissues are within normal limits. IMPRESSION: 1. Straightening of the cervical spine which may be secondary to positioning for the exa mination versus spasm. 2. No fracture or acute subluxation. 3. Large right-sided pleural effusion. Electronically signed by: Nazanin Sr MD 05/29/2019 12:08 AM CDT End of Addendum EXAM DESCRIPTION: Head C Spine Mpr Wo Con CLINICAL HISTORY: 79-year-old male with pain. COMPARISON: 08/09/2018. TECHNIQUE: CT brain without contrast. This exam was performed according to our departmental dose opt imization program which includes use of automated exposure control, adjustment of the mA and/or kV ac cording to patient size and/or use of iterative reconstruction technique. FINDINGS: Multifocal regions of patchy hypoattenuation are present in a subcortical and periventricu lar deep white matter distribution, nonspecific; however, most likely represent small vessel ischemic disease, age indeterminate. Subcentimeter hypoattenuation within the left basal ganglia stable in comparison to the previous examination compatible with sequela of prior infarction. The ventricles and sulci are enlarged compatible with underlying volume loss. The [place]-white matter differentiation is preserved. There is no mass effect, midline shift, intra- or extra-axial fluid collection/acute hemorrhage. The osseous structures are unremarkable. The paranasal sinuses revea l sclerosis and thickening of the RIGHT maxillary sinus wall with air-fluid level suggesting chronic sinus disease otherwise the remaining paranasal sinuses and mastoid air cells are clear. IMPRESSION: 1. No acute intracranial abnormalities. Nonspecific white matter change most likely sm all vessel ischemic disease, age indeterminate. 2. CT is insensitive for early evaluation of acute stroke. If there is clinical concern for acute ischemia, an MRI may be considered. Critical findings were discussed with Dr. Able 05/28/2019 2344 hours. TECHNIQUE: Cervical spine CT was performed without contrast. Multiplanar reformatted images were pro vided. This exam was performed according to our departmental dose optimization program which includes use of automated exposure control, adjustment of the mA and/or kV according to patient size and/or u se of iterative reconstruction technique. COMPARISON: 08/09/2018. FINDINGS: No sagittal spine images are available for comparison, although requested, images were not able to be made available. This significantly limits evaluation and interpretation of the cervical s pine for the possibility of subluxation, subtle vertebral loss of height or subtle fracture. Alignmen t cannot be evaluated. The posterior elements including the spinous processes are intact. Straightening of the cervical spin e which may be secondary to positioning for the examination. Morphology and attenuation of the vertebral bodies and intervertebral disk spaces is compatible with multilevel degenerative change. Multilevel posterior osseous spurring results in neuroforaminal narrowing throughout the cervical spi ne. Additionally, posterior osseous spurring at C3-4, C4-5, C5-6 vertebral level resulting in effacem ent of the ventral thecal sac and mild to moderate central spinal canal narrowing. Large right-sided pleural effusion. The pre-and paravertebral soft tissues are within normal limits. IMPRESSION: 1. Limited interpretation of the cervical spine secondary to lack of sagittal cervical s pine images as detailed above. 2. On axial and coronal imaging, no discrete fracture is identified. 3. Large right-sided pleural effusion. Electronically signed by: Nazanin Sr MD 05/28/2019 11:55 PM CDT Due to temporary technical issues with the PACS/Fluency reporting system, reports are being signed by the in house radiologist as a courtesy to ensure prompt reporting. The interpreting radiologist is f ully responsible for the content of the report.
== END 2019-05-29 02:47 | disposition short-term general hospital (02) ==
LOC: ER 22:34
DX: I63.9 Cerebral infarction, unspecified (principal); R47.01 Aphasia; I48.91 Unspecified atrial fibrillation; I48.92 Unspecified atrial flutter; E11.9 Type 2 diabetes mellitus without complications; R06.00 Dyspnea, unspecified; E83.42 Hypomagnesemia; J91.8 Pleural effusion in other conditions classified elsewhere; D64.9 Anemia, unspecified; R29.714 NIHSS score 14; I10 Essential (primary) hypertension; E78.00 Pure hypercholesterolemia, unspecified; I25.2 Old myocardial infarction; Z79.4 Long term (current) use of insulin; Z88.8 Allergy status to other drugs, medicaments and biological substances; Z85.528 Personal history of other malignant neoplasm of kidney
CPT/HCPCS: 96365; 96361; 92977; 87040 ×2; 87088; 85025; 87086; 80048; 36415; 83735; 85610; 80076; 83605; 84443; 87077; 87186; 84484; 84439; 84145; 83880; 70450; 72125; 71045; 96375; 99291; 96374; J2997; J1160; J3475; J0696; J7030 ×3